=== PATIENT | female | born 1945 | race Caucasian/White ===

== ENCOUNTER 2018-07-22 09:17 | Emergency (ER) | payer MEDICARE, SELFPAY ==
[2018-07-22] VITALS (19 sets, daily range): BP systolic 160–194; BP diastolic 71–110; PULSE 75–89; RESP 14–31; TEMP 35.8; O2SAT 91–99
--- NOTE | 2018-07-22 09:34 | DI.CT_ITS ---
SYMPTOM/DIAGNOSIS: LT FLANK AND LUQ PAIN, LT FLANK ECCHYMOSIS, ATRAUMATIC CHEST, ABDOMEN AND PELVIC CT: Comparison is made with chest CT dated 01/23/12 and abdomen and pelvic CT dated . CHEST: There is a small hiatal hernia. There are minimal basilar densities in the right middle lobe and lingula likely representing scarring or atelectasis. They don't appear significantly changed from the previous exam. No pleural or pericardial effusion, mass or adenopathy is seen. ABDOMEN AND PELVIS: The liver, gallbladder, spleen and adrenals are unremarkable. There is a left renal cyst. There is dilatation of the left renal pelvis and proximal left ureter which appears unchanged from 2017. There are bilateral duplex collecting systems. The pancreas shows some fatty infiltration. There are prominent diverticula of the sigmoid colon. There is bowel wall thickening of the sigmoid. There may be mild surrounding inflammation. The uterus, bladder and ovaries are unremarkable. The appendix is not identified. There are no right lower quadrant inflammatory changes. The aorta and branch vessels show calcification but no evidence of an aneurysm. Scoliosis and mild lower thoracic compression fractures as well as Schmorl's nodes appear stable. There are facet degenerative changes causing spondylolisthesis at L 4-5 and L 5-S 1. IMPRESSION: Prominent diverticulosis with question of mild sigmoid diverticulitis. Stable appearance of mild dilatation of the right renal collecting system. No acute abnormality is seen in the chest.
--- NOTE | 2018-07-22 09:40 | ED.GENADUL_ITS ---
Discharge Plan Disposition Patient Disposition: HOME Condition: Improving Discharge Details Chief Complaint: Abd Prob Clinical Impression: Diverticulitis large intestine Primary Care Provider: CASSIE RENEE ED Provider: Anup Monaco Home Meds and New Rx's Prescriptions: New ciprofloxacin HCl 500 mg tablet 500 mg PO BID Qty: 20 RF: 0 metronidazole [Flagyl] 500 mg tablet 500 mg PO QID Qty: 40 RF: 0 Continue calcium carbonate 500 MG tablet,chewable 500 mg PO DAILY RF: 0 hydrochlorothiazide 25 mg tablet 25 mg PO DAILY RF: 0 multivitamin [Daily Multi-Vitamin] 1 EACH tablet 1 cap PO DAILY RF: 0 omega-3 fatty acids-fish oil [Fish Oil] 1 EACH capsule 1 cap PO DAILY RF: 0 ibuprofen 200 MG capsule 200 mg PO PRN PRNRF: 0 Discharge Instructions Instructions: Diverticulitis (ED), Diverticulitis Diet (ED) Additional Instructions: Home to rest today. Please begin a bland diet and slowly escalate to normal diet as tolerated. Take antibiotics as prescribed. May use Tylenol and/or ibuprofen as needed for pain. Return to the emergency department if you develop a fever, worsening pain, or any other acute concern. Your potassium level was low today and you should increase potassium containing foods in the diet as we discussed. Tylenol as needed for pain. May use the provided Zofran if needed for nausea. Return for worsening discomfort, fever, or any othr concerns. Yovany followup with regular doctor for recheck in 5-7 days time. Medical Decision Making 72-year-old female presents from home with the onset over 7 days time of left upper quadrant and left flank pain that began after lifting heavy pots previous weekend. Her exam is notable for questionable mass and there is ecchymosis present left flank. Patient placed on a rn cardiac cath, IV access established , given parenteral fluids, antiemetic, analgesic. She is referred for laboratory testing and CT scan of the chest abdomen and pelvis. Patient's laboratories notable for a sodium of 131, potassium is 2.7. CBC shows a white count 7, hematocrit 41, platelets 328, lactic acid is unremarkable. CT image revealed question subtle atelectatic changes of the lungs but are more impressive for findings of left-sided diverticulitis. Patient improved following fluids and medications. Her potassium was supplemented in the emergency department. Antibiotics initiated in the emergency department & will treat with a course of ciprofloxacin and metronidazole. Discussed with the patient the possibility of admission which she defers. She wishes to go to her sisters house this evening. She will follow-up for recheck in primary care office. Stable for outpatient management with her family. Lab Data Lab results reviewed: Yes I reviewed the patient's lab results. Laboratory Results - last 24 hr 07/22/18 07/22/18 07/22/18 09:40 09:40 09:40 WBC 7.35 RBC 4.77 Hgb 14.2 Hct 41.6 MCV 87.2 MCH 29.8 MCHC 34.1 RDW 12.9 Plt Count 328 MPV 8.7 Immature Gran % 0.3 Neutrophils % 87.4 Lymphocytes % 8.6 Monocytes % 3.3 Eosinophils % 0.1 Basophils % 0.3 Absolute Neutrophils 6.43 Absolute Lymphocytes 0.63 L Absolute Monocytes 0.24 Absolute Eosinophils 0.01 Absolute Basophils 0.02 Sodium 131 L Potassium 2.7 L* Chloride 91 L Carbon Dioxide 28.8 Anion Gap 11.2 H BUN 10 Creatinine 0.59 Estimated GFR/1.73 m2 >= 60.00 Glucose 146 H Lactate 1.1 Calcium 9.0 Magnesium 1.6 L Total Bilirubin 0.4 Conjugated Bilirubin 0.12 AST 15 ALT 25 Alkaline Phosphatase 94 Troponin I < 0.02 Total Protein 8.5 H Albumin 4.2 Lipase 59 L Urine Color Urine Clarity Urine pH Ur Specific [place] Urine Protein Urine Ketones Urine Blood Urine Nitrite Urine Bilirubin Urine Urobilinogen Ur Leukocyte Esterase Urine Glucose 07/22/18 10:00 WBC RBC Hgb Hct MCV MCH MCHC RDW Plt Count MPV Immature Gran % Neutrophils % Lymphocytes % Monocytes % Eosinophils % Basophils % Absolute Neutrophils Absolute Lymphocytes Absolute Monocytes Absolute Eosinophils Absolute Basophils Sodium Potassium Chloride Carbon Dioxide Anion Gap BUN Creatinine Estimated GFR/1.73 m2 Glucose Lactate Calcium Magnesium Total Bilirubin Conjugated Bilirubin AST ALT Alkaline Phosphatase Troponin I Total Protein Albumin Lipase Urine Color Yellow Urine Clarity Clear Urine pH 8.0 Ur Specific [place] 1.020 Urine Protein 100 H Urine Ketones 40 H Urine Blood Trace-intact H Urine Nitrite Negative Urine Bilirubin Negative Urine Urobilinogen 0.2 Ur Leukocyte Esterase Negative Urine Glucose Negative ECG Data Attestation: I personally reviewed and interpreted this ECG (s) as follows: Interpretation: Normal sinus rhythm, rate of 83, QRS is narrow, there is subtle J-point elevation in the precordial leads, no ST segment elevation HPI General Mode of arrival: ambulatory . Date/Time Provider Initiated Documentation: 07/22/18 09:24 . Limitations to Documentation: no limitations . Information obtained by: patient . History of Present Illness 72 year old F presents to the emergency department with the chief complaint of Abdominal pain, described as severe, Quality is described as constant, and is localized to the abdomen and left. Patient abdomen and flank. Patient started experiencing this day(s) and it has been constant. Rest improves symptom(s), Rest worsens symptoms . Patient notes nausea/vomiting. HPI Narrative: 72-year-old female presents from her home in [facility] with her sister. She states that she has had 7 days of constant left upper quadrant pain that radiates to her flank and is associated with a bulge. She states that it began last weekend while lifting heavy pots. She denies any acute onset of a ventral bulge. She has had associated nausea and vomiting today. Pain is worse with movement. She denies a fall or other injury. She does not take anticoagulants. She states that she has otherwise recently been well Related Data Home Medications Medication Instructions Recorded Confirmed multivitamin [Daily Multi-Vitamin] 1 cap PO DAILY 11/28/13 07/22/18 omega-3 fatty acids-fish oil [Fish 1 cap PO DAILY 11/28/13 09/27/17 Oil] ibuprofen 200 mg PO PRN PRN 12/03/13 07/22/18 calcium carbonate 500 mg PO DAILY tab.chew 04/07/16 07/22/18 hydrochlorothiazide 25 mg tablet 25 mg PO DAILY 06/05/18 07/22/18 ciprofloxacin HCl 500 mg PO BID #20 tab 07/22/18 metronidazole [Flagyl] 500 mg PO QID #40 tab 07/22/18 Previous Rx's Medication Instructions Recorded ciprofloxacin HCl 500 mg PO BID #20 tab 07/22/18 metronidazole [Flagyl] 500 mg PO QID #40 tab 07/22/18 Allergies Allergy/AdvReac Type Severity Reaction Status Date / Time Penicillins Allergy Mild RASH Unverified 07/22/18 09:31 Seasonal allergies Allergy Uncoded 07/22/18 09:31 General Stated Complaint: Abd Prob FRANNY: 3 Review of Systems Review of Systems 8 systems reviewed and otherwise negative PFSH Family History Mother No problems noted. Father No problems noted. Other Bladder cancer Medical History Hiatal hernia Skin tag Surgical History Appendectomy Laser Iridotomy OU Repair of inguinal hernia Tonsillectomy hiatal hernia repair Exam Narrative Exam Narrative: GEN: awake, alert, oriented 3. Pleasant, well groomed, interactive, uncomfortable. HEAD: Normocephalic, atraumatic ENT: Mucous membranes moist, oropharynx unremarkable, External ear exam unremarkable EYES: PERRL, EOMI NECK: Full ROM, no MILLY, no menigismus CHEST/RESP: Nontender, clear to auscultation bilateral, no wheeze/rhonchi/rales CARDIOVASCULAR: RRR, no murmur, rub lora. 2+ Rad pulse bilateral ABDOMEN: Soft, tender in left upper quadrant & left flank. There is a question of palpable mass. There is ecchymosis to the left flank and left CVA tenderness. +Bowel sounds EXT: Full ROM, no edema, no rash Neuro: Grossly normal neurologic exam, conversant, interactive. Psych: Speech fluent, thoughts congruent, affect normal Course Vital Signs Temperature 35.8 C L 07/22/18 09:24 Pulse 84 07/22/18 09:24 Respiratory Rate 16 07/22/18 09:24 Blood Pressure 194/110 H 07/22/18 09:24 Pulse Oximetry 99 07/22/18 09:24 Temperature 35.8 C L 07/22/18 09:24 Temperature Source Skin 07/22/18 09:24 Pulse 84 07/22/18 09:24 Respiratory Rate 16 07/22/18 09:24 Respiratory Effort Non-Labored 07/22/18 09:27 Blood Pressure 194/110 H 07/22/18 09:24 Pulse Oximetry 99 07/22/18 09:24 Pain Level 10 07/22/18 09:24
[2018-07-22] MEDS: Lactated Ringers 1,000 ML 125 ML IV (09:45)
[2018-07-22] MEDS: Ondansetron 4 MG/2 ML VIAL IVP ×3 (09:46→13:40)
[2018-07-22 09:47] LABS: Abs Immature Grans 0.02 k/cumm (0.0-0.09); Absolute Basophil Count 0.02 k/cumm (0.0-0.2); Absolute Eosinophil Count 0.01 k/cumm (0.0-0.7); Absolute Lymphocyte Count 0.63 k/cumm (1.2-3.4); Absolute Monocyte Count 0.24 k/cumm (0.11-0.7); Absolute Neutrophil Count 6.43 k/cumm (1.2-6.7); Basophils % 0.3; Eosinophils % 0.1; HCT 41.6 % (36.0-46.0); HGB 14.2 g/dL (12.0-15.5); Immature Grans % 0.3; Lymphocytes % 8.6; Mean Corp. HGB Concentration 34.1 g/dL (32.0-36.0); Mean Corpuscular Hemoglobin 29.8 pg (27.0-33.0); Mean Corpuscular Volume 87.2 fL (80-95); Mean Platelet Volume 8.7 fL (8.0-11.0); Monocytes % 3.3; Neutrophils % 87.4; Platelet Count 328 x1000/uL (130-400); RBC 4.77 m/cumm (4.00-5.20); RBC Distribution Width 12.9 % (11.7-14.6); White Blood Cell Count 7.35 k/cumm (4.4-10.8)
[2018-07-22 09:48] LABS: Lactate-non-spesis 1.1 mmol/L (0.6-1.4)
[2018-07-22] MEDS: MORPHine 10 MG/ML VIAL 2 MG IVP ×3 (09:54→13:45)
[2018-07-22 10:05] LABS: Bilirubin Negative (Negative); Blood Trace-intact (Negative); Clarity Clear; Glucose Negative (Negative); Ketones 40 mg/dL (Negative); Leukocyte Esterase Negative (Negative); Nitrite Negative (Negative); Urobilinogen 0.2 EU/dL (Up TO 0.2)
[2018-07-22 10:06] LABS: ALT 25 U/L (12-78); AST 15 U/L (15-37); Albumin 4.2 g/dL (3.4-5.0); Alkaline Phosphatase 94 U/L (46-116); Anion Gap 11.2 mmol/L (3-11); BUN 10 mg/dL (7-18); Bilirubin, Direct 0.12 mg/dL (0.00-0.20); Bilirubin, Total 0.4 mg/dL (0.2-1.0); CO2 28.8 mmol/L (21.0-32.0); CREATININE 0.59 mg/dL (0.55-1.02); Chloride 91 mmol/L (98-107); Glucose 146 mg/dL (70-100); Lipase 59 U/L (73-393); Magnesium 1.6 mg/dL (1.8-2.4); Sodium 131 mmol/L (136-145); Total Protein 8.5 g/dL (6.4-8.2)
[2018-07-22 10:07] LABS: Potassium 2.7 mmol/L (3.5-5.1); Troponin I < 0.02 ng/mL (0.00-0.06)
[2018-07-22] MEDS: Omnipaque 350 MG/ML 100 ML BTL IV (10:21)
[2018-07-22 10:35] LABS: Epithelial Cells Negative HPF (Negative); WBC 0-2 HPF (0-5)
[2018-07-22 10:36] LABS: Bacteria Rare HPF (Negative); C & S Indicated? No; Casts Negative LPF (Negative); Crystals Negative HPF (Negative); Mucus Negative (Negative); Other Cells Rare Renal (Negative)
[2018-07-22] MEDS: POTASSIUM CHLORIDE/0.9% NACL 1,000 ML 100 MEQ IV (10:50)
[2018-07-22] MEDS: Normal Saline 1,000 ML 100 ML IV (10:55)
--- NOTE | 2018-07-22 11:15 | DI.VRAD_ITS ---
EXAM: CT Chest With Intravenous Contrast EXAM DATE/TIME: 07/22/2018 9:38 AM CLINICAL HISTORY: 72 years old, female; Signs and symptoms; Other: L flank, luq pain. L flank ecc TECHNIQUE: Axial computed tomography images of the chest with intravenous contrast. All CT scans at this facility use at least one of these dose optimization techniques: automated exposure control; mA and/or kV adjustment per patient size (includes targeted exams where dose is matched to clinical indication); or iterative reconstruction. Coronal and sagittal reformatted images were created and reviewed. CONTRAST: 100 ml of omnipaque 350 administered intravenously. COMPARISON: CT ABD PELVIS WITH CONTRAST 04/03/2017 11:04 AM FINDINGS: Thyroid: The thyroid is heterogeneous Lungs: Minimal opacity in the right middle lobe and lingula and left lower lobe may represent minimal atelectasis or pneumonia. Pleural space: Normal. No pneumothorax. No pleural effusion. Heart: Coronary artery calcifications may indicate coronary artery disease. There is calcification of the aortic valve annulus. Mediastinum: Small hiatal hernia Aorta: Normal. No aortic aneurysm. Lymph nodes: Unremarkable. No enlarged lymph nodes. Bones/joints: Compression fractures of unknown age in the thoracic spine Soft tissues: Unremarkable. IMPRESSION: Minimal opacity in the right middle lobe and lingula and left lower lobe may represent minimal atelectasis or pneumonia. EXAM: CT Abdomen and Pelvis With Intravenous Contrast EXAM DATE/TIME: 07/22/2018 9:38 AM CLINICAL HISTORY: 72 years old, female; Signs and symptoms; Other: L flank, luq pain. L flank ecc TECHNIQUE: Axial computed tomography images of the abdomen and pelvis with intravenous contrast. All CT scans at this facility use at least one of these dose optimization techniques: automated exposure control; mA and/or kV adjustment per patient size (includes targeted exams where dose is matched to clinical indication); or iterative reconstruction. Coronal and sagittal reformatted images were created and reviewed. CONTRAST: 100 ml of omnipaque 350 administered intravenously. COMPARISON: CT ABD PELVIS WITH CONTRAST 04/03/2017 11:04 AM FINDINGS: Lower thorax: See the report for CT chest ABDOMEN: Liver: 3 mm low attenuation area in the liver is too small to characterize Gallbladder and bile ducts: Normal. No calcified stones. No ductal dilation. Pancreas: Fatty infiltration of the pancreas. Spleen: Normal. No splenomegaly. Adrenals: Normal. No mass. Kidneys and ureters: Mild hydronephrosis in the right kidney. Mild proximal right hydroureter. 2.5 cm left renal cyst Stomach and bowel: Diverticulosis and Bowel wall thickening along the rectosigmoid colon. Mild pericolonic inflammatory changes. No evidence of perforation or abscess formation or bleeding. Findings consistent with acute diverticulitis. Bowel wall thickening in the distal transverse colon, descending colon, and proximal rectosigmoid consistent with colitis. Differential includes decompressed bowel. Appendix: See Stomach And Bowel Finding. PELVIS: Bladder: Unremarkable as visualized. Reproductive: Unremarkable as visualized. ABDOMEN and PELVIS: Intraperitoneal space: Normal. No free air. No significant fluid collection. Bones/joints: Anteriolisthesis of L4 with respect L5 and L5 with respect to S1. Soft tissues: Unremarkable. Vasculature: Normal. No abdominal aortic aneurysm. Lymph nodes: Normal. No enlarged lymph nodes. IMPRESSION: 1. Diverticulosis and Bowel wall thickening along the rectosigmoid colon. Mild pericolonic inflammatory changes. No evidence of perforation or abscess formation or bleeding. Findings consistent with acute diverticulitis. 2. Mild hydronephrosis in the right kidney. Mild proximal right hydroureter. Unknown etiology. Recommend urology consult Dictated and Authenticated by: Estefany Leblanc MD. Ordering:SHELTON CISNEROS MD
[2018-07-22] MEDS: Ciprofloxacin 500 MG TAB PO (11:50)
[2018-07-22] MEDS: Ketorolac 30 MG/ML VIAL 15 MG IVP (11:55)
[2018-07-22] MEDS: MetroNIDAZOLE 500 MG/100 ML BAG 100 MG IVPB (12:00)
[2018-07-22] MEDS: metroNIDAZOLE 500 MG TAB PO (16:00)
[2018-07-22] MEDS: Ciprofloxacin 250 MG TAB 500 MG PO (16:00)
[2018-07-22] MEDS: Ondansetron O.D.T. 4 MG TABEF 12 MG PO (16:00)
--- NOTE | 2018-07-23 09:29 | PDOC.ERCMPRO ---
Care Management Progress Note 07/23-Dr. Monaco requested assistance with a PCP (Dr. Page) for end of this week for diverticulitis. Called Dr. Page's office and number no longer in service. Called [facility] who states that Dr. Page has retired and that her patients found new PCP's. (Dr. Page had a private practice). Called Agata back and had to leave voice mail. Asked her to call back to let me know if I could assist her with a new PCP in the [place] area (she may already have one) and reminded her she needed a f/u at the end of this week. Also requested that Agata call back to let us know who her new provider was.
== END 2018-07-22 19:03 | disposition home or self-care (01) ==
PROVIDERS: Emergency Provider Emergency Medicine; PCP Family Medicine
DX: K57.32 Diverticulitis of large intestine without perforation or abscess without bleeding (principal); E87.6 Hypokalemia; I10 Essential (primary) hypertension
CPT/HCPCS: 36415; 74177; 80053; 80076; 83690; 93005; 96361; 96365; 96366; 96368; 96375; 96376; 99285; 71260; 81003; 81015; 83605; 83735; 84484; 85025; 93010; J1885; J2270; J2405; J3490

== ENCOUNTER 2018-07-23 12:17 | Emergency (ER) | payer MEDICARE, SELFPAY ==
[2018-07-23] VITALS (9 sets, daily range): BP systolic 168–210; BP diastolic 70–103; PULSE 73–97; RESP 16–25; TEMP 36.8–37.1; O2SAT 95–99
[2018-07-23 13:00] LABS: Abs Immature Grans 0.02 k/cumm (0.0-0.09); Absolute Basophil Count 0.01 k/cumm (0.0-0.2); Absolute Eosinophil Count 0.01 k/cumm (0.0-0.7); Absolute Lymphocyte Count 0.79 k/cumm (1.2-3.4); Absolute Monocyte Count 0.46 k/cumm (0.11-0.7); Absolute Neutrophil Count 7.86 k/cumm (1.2-6.7); Basophils % 0.1; Eosinophils % 0.1; HCT 41.3 % (36.0-46.0); HGB 14.2 g/dL (12.0-15.5); Immature Grans % 0.2; Lymphocytes % 8.6; Mean Corp. HGB Concentration 34.4 g/dL (32.0-36.0); Mean Corpuscular Hemoglobin 29.8 pg (27.0-33.0); Mean Corpuscular Volume 86.6 fL (80-95); Mean Platelet Volume 8.8 fL (8.0-11.0); Platelet Count 371 x1000/uL (130-400); RBC 4.77 m/cumm (4.00-5.20); RBC Distribution Width 12.9 % (11.7-14.6); White Blood Cell Count 9.15 k/cumm (4.4-10.8)
[2018-07-23] MEDS: Normal Saline 500 ML IV (13:10)
--- NOTE | 2018-07-23 13:14 | NUR.NOTE ---
Assumed care of patient at this time. Previous documentation of assumption of care documented by another nurse under this RN's name. No report concerning this patient given. Will notify IT and nursing management of this issue. Nursing Note:
[2018-07-23 13:15] LABS: ALT 24 U/L (12-78); AST 17 U/L (15-37); Albumin 3.8 g/dL (3.4-5.0); Alkaline Phosphatase 88 U/L (46-116); Anion Gap 11.5 mmol/L (3-11); BUN 16 mg/dL (7-18); Bilirubin, Total 0.4 mg/dL (0.2-1.0); CO2 27.5 mmol/L (21.0-32.0); CREATININE 0.64 mg/dL (0.55-1.02); Chloride 90 mmol/L (98-107); Glucose 129 mg/dL (70-100); Lipase 61 U/L (73-393); Potassium 3.1 mmol/L (3.5-5.1); Sodium 129 mmol/L (136-145)
[2018-07-23] MEDS: MORPHine 10 MG/ML VIAL 4 MG IVP (13:20)
--- NOTE | 2018-07-23 14:43 | DI.RAD_ITS ---
SYMPTOMS/DIAGNOSIS: ABD PAIN AP CHEST AND FLAT AND DECUBITUS VIEWS OF THE ABDOMEN: Comparison is made with chest, abdomen and pelvic CT of the previous day. The heart is mildly enlarged, unchanged. The aorta is tortuous. Scoliosis is noted. There are underlying fibrotic changes. There is a minimal density at the left costophrenic angle. No free air is seen. The bowel gas pattern is unremarkable. No dilated bowel loops or air fluid levels are seen. There is mild chronic deformity of the right inferior pubic ramus which appears unchanged when compared with previous CT exams. IMPRESSION: No acute abnormality.
[2018-07-23] MEDS: MetroNIDAZOLE 500 MG/100 ML BAG 100 MG IVPB (15:42)
[2018-07-23] MEDS: Normal Saline 1,000 ML 125 ML IV (16:47)
[2018-07-23] MEDS: Metoprolol 5 MG/5 ML VIAL IVP (16:57)
--- NOTE | 2018-07-23 17:50 | ED.GENADUL_ITS ---
Discharge Plan Disposition Patient Disposition: OTHER Condition: Stable Discharge Details Chief Complaint: Abd Prob Clinical Impression: Diverticulitis, Hypertension Primary Care Provider: CASSIE RENEE ED Provider: Juan Watson Home Meds and New Rx's Prescriptions: No Action calcium carbonate 500 MG tablet,chewable 500 mg PO DAILY RF: 0 hydrochlorothiazide 25 mg tablet 25 mg PO DAILY RF: 0 multivitamin [Daily Multi-Vitamin] 1 EACH tablet 1 cap PO DAILY RF: 0 omega-3 fatty acids-fish oil [Fish Oil] 1 EACH capsule 1 cap PO DAILY RF: 0 ibuprofen 200 MG capsule 200 mg PO PRN PRNRF: 0 ciprofloxacin HCl 500 mg tablet 500 mg PO BID Qty: 20 RF: 0 metronidazole [Flagyl] 500 mg tablet 500 mg PO QID Qty: 40 RF: 0 Discharge Data Discharge Date/Time-TO BE ENTERED AT DEPARTURE: 07/23/18 18:19 Medical Decision Making Patient presenting to the emergency department for chief complaint of abdominal pain. Patient states that she was seen yesterday and had imaging performed and diagnosed with diverticulitis. Patient states that she was able to keep down her Cipro and Flagyl antibiotics that she was prescribed but otherwise is not been able to eat or drink anything in 3 days, has had severe abdominal pain, has not been able to take any of her other medications including her blood pressure medication. Patient states greater than 10 pain. Patient reports that this is not specifically changed since yesterday just not getting any better with outpatient therapy and due to not being able to tolerate any intake she was concerned. Physical exam shows acutely tender abdomen with more tenderness noted on palpation of the left side of the abdomen but due to patient 's severe discomfort difficult to fully examine abdomen. Otherwise physical exam is unremarkable. Plan to check labs, establish IV access, give fluids, and give pain medication. After review of labs that show no leukocytosis but mild hyponatremia and hypokalemia otherwise are nondiagnostic plain film imaging of the abdomen was ordered. Plain film imaging appears appropriate but patient continuing to have pain so patient given additional 4 mg of morphine. And started on normal saline 125/hr Patient noted to continually be hypertensive so patient was given 5 mg metoprolol for blood pressure control. Patient plain film imaging reviewed and shows no acute findings.I do feel needs medical admission. Patient was offered admission last night but denied admission at that time but given that she is not getting any better I do feel that she now needs admission and she is agreeable to this. We have no bed availability so patient's preference was initially to go to [facility] but beds were not available. [facility] and only [facility] had availability. Spoke with Dr. Aguilar about admission of the patient which he accepted the patient in transfer. Patient was agreeable for transfer. Pending transfer patient had not had any further doses of her Flagyl except for her morning dose of Cipro and Flagyl so patient was given IV Flagyl but given that she was able to tolerate her p.o. Cipro no other IV antibiotics were given. Medical Records Medical records reviewed: Yes I reviewed the patient's medical records. Lab Data Lab results reviewed: Yes I reviewed the patient's lab results. HPI General Mode of arrival: ambulatory . Date/Time Provider Initiated Documentation: 07/23/18 12:43 . Limitations to Documentation: no limitations . Information obtained by: patient, RN notes reviewed and old records reviewed . History of Present Illness 72 year old F presents to the emergency department with the chief complaint of Abdominal pain, described as severe, with intensity rated at >10. and is localized to the abdomen. Patient started experiencing this day(s) (8) and it has been constant. No exacerbating factors reported . Patient did receive the following treatments prior to arrival, none Related Data Home Medications Medication Instructions Recorded Confirmed multivitamin [Daily Multi-Vitamin] 1 cap PO DAILY 11/28/13 07/27/18 omega-3 fatty acids-fish oil [Fish 1 cap PO DAILY 11/28/13 07/27/18 Oil] ibuprofen 200 mg PO PRN PRN 12/03/13 07/27/18 calcium carbonate 500 mg PO DAILY tab.chew 04/07/16 07/27/18 hydrochlorothiazide 25 mg tablet 25 mg PO DAILY 06/05/18 07/27/18 ciprofloxacin HCl 500 mg PO BID #20 tab 07/22/18 07/27/18 metronidazole [Flagyl] 500 mg PO QID #40 tab 07/22/18 07/27/18 Previous Rx's Medication Instructions Recorded ciprofloxacin HCl 500 mg PO BID #20 tab 07/22/18 metronidazole [Flagyl] 500 mg PO QID #40 tab 07/22/18 Allergies Allergy/AdvReac Type Severity Reaction Status Date / Time Penicillins Allergy Mild RASH Unverified 07/27/18 08:50 Seasonal allergies Allergy Uncoded 07/27/18 08:50 General Stated Complaint: Abd Prob FRANNY: 3 Review of Systems Constitutional Denies chills, Reports fatigue, Denies fever(s) and Reports malaise Cardiovascular Denies chest pain and Denies dyspnea Respiratory Denies cough and Denies dyspnea Gastrointestinal Reports as per HPI, Reports abdominal pain, Reports nausea and Reports vomiting Genitourinary Denies dysuria, Denies urinary hesitancy and Denies urinary urgency Endocrine Reports fatigue PFSH Family History Mother No problems noted. Father No problems noted. Other Bladder cancer Medical History Hiatal hernia Skin tag Social History Smoking/Tobacco Use Status: Former Tobacco Use Surgical History Appendectomy Laser Iridotomy OU Repair of inguinal hernia Tonsillectomy hiatal hernia repair Exam Const General: cooperative, acute distress moderate; not respiratory and ill appearing acutely Nutritional Appearance: average body habitus Orientation: alert, awake and oriented x3 Resp Effort & Inspection: normal respiratory effort and able to speak in complete sentences Auscultation: clear to auscultation bilaterally Cardio Rate: regular rate Rhythm: regular rhythm Heart Sounds: S1 normal and S2 normal Bruits: no abdominal aortic bruits GI Palpation: soft and tender (Diffuse with more noted on the left side of abdomen) Auscultation: hypoactive bowel sounds Neuro General: alert, awake, oriented x3, tone normal and moves all extremities Course Vital Signs Temperature 37.1 C 07/23/18 12:25 Pulse 80 07/23/18 12:25 Respiratory Rate 20 07/23/18 12:25 Blood Pressure 208/94 H 07/23/18 12:25 Pulse Oximetry 96 07/23/18 12:25 Temperature 37.1 C 07/23/18 12:25 Temperature Source Temporal Artery Scan 07/23/18 12:25 Pulse 97 H 07/23/18 16:57 Pulse 89 07/23/18 14:16 Respiratory Rate 25 H 07/23/18 14:16 Respiratory Effort 07/23/18 13:16 Blood Pressure 183/94 H 07/23/18 16:57 Blood Pressure Mean 131 07/23/18 14:16 Pulse Oximetry 95 07/23/18 16:41 Oxygen Delivery Method Room Air 07/23/18 12:25 Oxygen Flow Rate 0 07/23/18 12:25 Pain Level 10 07/23/18 12:25 Lab/Test Results Lab/Test Results: Laboratory Tests Range/Units 07/23/18 07/23/18 12:40 12:40 WBC (4.4-10.8) k/cumm 9.15 RBC (4.00-5.20) m/cumm 4.77 Hgb (12.0-15.5) g/dL 14.2 Hct (36.0-46.0) % 41.3 MCV (80-95) fL 86.6 MCH (27.0-33.0) pg 29.8 MCHC (32.0-36.0) g/dL 34.4 RDW (11.7-14.6) % 12.9 Plt Count (130-400) x1000/uL 371 MPV (8.0-11.0) fL 8.8 Immature Gran % 0.2 Neutrophils % 86.0 Lymphocytes % 8.6 Monocytes % 5.0 Eosinophils % 0.1 Basophils % 0.1 Absolute Neutrophils (1.2-6.7) k/cumm 7.86 H Absolute Lymphocytes (1.2-3.4) k/cumm 0.79 L Absolute Monocytes (0.11-0.7) k/cumm 0.46 Absolute Eosinophils (0.0-0.7) k/cumm 0.01 Absolute Basophils (0.0-0.2) k/cumm 0.01 Sodium (136-145) mmol/L 129 L Potassium (3.5-5.1) mmol/L 3.1 L Chloride (98-107) mmol/L 90 L Carbon Dioxide (21.0-32.0) mmol/L 27.5 Anion Gap (3-11) mmol/L 11.5 H BUN (7-18) mg/dL 16 D Creatinine (0.55-1.02) mg/dL 0.64 Estimated GFR/1.73 m2 (mL/min/1.73m2) >= 60.00 Glucose (70-100) mg/dL 129 H Calcium (8.5-10.1) mg/dL 9.0 Total Bilirubin (0.2-1.0) mg/dL 0.4 AST (15-37) U/L 17 ALT (12-78) U/L 24 Alkaline Phosphatase (46-116) U/L 88 Total Protein (6.4-8.2) g/dL 8.0 Albumin (3.4-5.0) g/dL 3.8 Lipase (73-393) U/L 61 L
== END 2018-07-23 18:19 | disposition other institution (70) ==
PROVIDERS: Emergency Provider Nurse Practitioner Family
DX: K57.32 Diverticulitis of large intestine without perforation or abscess without bleeding (principal); I10 Essential (primary) hypertension; E87.1 Hypo-osmolality and hyponatremia; E87.6 Hypokalemia
CPT/HCPCS: 36415; 80053; 83690; 96361; 96365; 96375; 96376; 99285; 74022; 85025; 99284; J2270

== ENCOUNTER 2018-07-27 08:34 | Observation (INO) | payer MEDICARE, SELFPAY ==
[2018-07-27] VITALS (39 sets, daily range): BP systolic 141–214; BP diastolic 61–102; PULSE 67–95; RESP 16–32; TEMP 36.6–37.1; O2SAT 90–99
--- NOTE | 2018-07-27 09:03 | DI.CT_ITS ---
SYMPTOM/DIAGNOSIS: WORSENING PAIN, H/O DIVERTICULITIS ABDOMEN AND PELVIC CT: CT examination of the abdomen and pelvis was performed with a bolus infusion of 100 cc's of Omnipaque 350. Images obtained through the lung bases are unremarkable. Liver and spleen appear normal. Gallbladder and bile ducts are unremarkable. Pancreas is unremarkable in appearance. Note is made of made of apparent previous surgery at the esophagus hiatus with a recurrent or persistent hiatal hernia. Adrenals are unremarkable in appearance bilaterally. 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 No evidence of hydronephrosis or ureterolithiasis. On the left, there are some tiny non obstructing renal calculi. Left renal cyst also noted measuring roughly 2.5 cm. in diameter. No left hydronephrosis or hydroureter. Abdominal aorta is of normal diameter and no major vasculature abnormality is seen. No abdominal wall hernia is seen. No abdominal or pelvic adenopathy. There is marked colonic diverticulosis without evidence of diverticulitis. LOAN ADMINISTRATOR structures appear intact for a postmenopausal patient. Small bilateral low attenuation, rounded ovarian lesions noted, unchanged from previous examination , consistent with cysts, the largest measuring about 17 mm. in diameter on the right. Note is made of small quantities of gas in the subcutaneous fat in a right paramedian anterior abdominal location, question recent injections into subcutaneous fat. CONCLUSION: Colonic diverticulosis without evidence of diverticulitis. Non obstructing left renal calculus. No evidence of acute intra-abdominal process.
--- NOTE | 2018-07-27 09:07 | W.ED.GENAD ---
Discharge Plan Disposition Patient Disposition: [facility] INPATIENT Condition: Poor Discharge Details Chief Complaint: Abd Prob Clinical Impression: Diverticulitis, Left nephrolithiasis, Shingles Reason For Visit: DIVERTICULITIS,HERPES ZOSTER, NONOSTRUCTING- Admit Date/Time: 07/27/18 11:11 Admit Provider: Barb Ware Attending Provider: Barb Ware Primary Care Provider: CASSIE RENEE ED Provider: Agata Rios Medical Decision Making Patient 72-year-old female with history of hypertension, depression and neuropathy presenting today with increased abdominal pain. Patient was discharged yesterday after being hospitalized for diverticulitis. She was initially diagnosed with diverticulitis 6 days ago begun on Cipro and Flagyl. She was subsequently seen in the emergency department 4 days ago. For increased discomfort at that point, she was having difficulty maintaining any p.o. intake and was admitted. Needed to be transferred out of [address] [place] [address] facility secondary to bed availability at that time. Patient was discharged yesterday from [facility]. Reports that at that point, her pain is much improved but overnight her pain has greatly increased. Initial imaging, completed on 07/22/2018, showed left-sided diverticulitis, no complications were noted at that point. Patient appears very uncomfortable at this point. Reports that she has not been vomiting but has been very nauseated making it difficult for her to take her medications. Does not feel that her nausea vomiting is associated with the antibiotic as she has not taken this since yesterday. States that the left-sided abdominal pain is greatly improved increased. While at [facility] patient was also diagnosed with shingles and was placed on valacyclovir, patient has not been able to begin this medication as of yet. On exam, patient appears very uncomfortable. She is preferring to lie in a position curled up on her left side. She is clutching at her abdomen and appears to be very nauseated. Abdomen is exquisitely tender with gentle palpation. Patient will be given antiemetic, pain medication, hydration. Will repeat laboratory evaluation as well as imaging. Will obtain recent discharge summary. Discussed this plan with the patient who is in agreement Laboratory evaluation without significant abnormality. Urine is still pending Contacted by radiologist who advised the diverticulitis appears improved. He does note nonobstructing renal calculi on the left. No hydronephrosis. Also notes gas and subcutaneous fat, he was questioning any recent injections. Patient did recently have Lovenox injections per Discussing findings with the patient. Reevaluated. She is feeling much improved after the IV morphine and Phenergan. However, she is quite concerned that she has not been able to tolerate any p.o. intake, did appear dry on exam, is unable to control her pain at home. She reports that she is used oral narcotics historically in the past and has not been able to tolerate these well. I feel at this point, given the patient's level of discomfort and inability to tolerate p.o. she is appropriate for inpatient treatment. Patient did take her Flagyl this morning. We will give her her Cipro as well as her antiviral Consulted with Dr. Ware who agrees to admission. However, she is asked to hold off on medications at this point. She will evaluate the patient further and likely transition patient to complete IV medications until patient is able to tolerate oral better. She is also asked that I place holding orders. HPI General Mode of arrival: wheelchair. Date/Time Provider Initiated Documentation: 07/27/18 08:51. Limitations to Documentation: no limitations. Information obtained by: patient and family. History of Present Illness 72 year old F presents to the emergency department with the chief complaint of abdominal pain, described as severe and similar to prior episodes, with intensity rated at >10. Quality is described as stabbing, and is localized to the abdomen. Patient reports no radiation; denies radiation to back and extremity. Patient started experiencing this week(s) (1) and it has been intermittent (increased today since discharge yesterday). No relieving factors improve symptom(s), No exacerbating factors reported . Patient notes fever/chills (states she had fever during recent hospitalization), loss of appetite, malaise, nausea/vomiting and rash (is concurrently being treated for shingles on left side of abdomen); denies chest pain, cough, diaphoresis, headaches, shortness of breath and weakness. Patient did receive the following treatments prior to arrival, none Related Data Home Medications Medication Instructions Recorded Confirmed multivitamin [Daily Multi-Vitamin] 1 cap PO DAILY 11/28/13 07/27/18 omega-3 fatty acids-fish oil [Fish 1 cap PO DAILY 11/28/13 07/27/18 Oil] ibuprofen 200 mg PO PRN PRN 12/03/13 07/27/18 calcium carbonate 500 mg PO DAILY tab.chew 04/07/16 07/27/18 hydrochlorothiazide 25 mg tablet 25 mg PO DAILY 06/05/18 07/27/18 ciprofloxacin HCl 500 mg PO BID #20 tab 07/22/18 07/27/18 metronidazole [Flagyl] 500 mg PO QID #40 tab 07/22/18 07/27/18 Previous Rx's Medication Instructions Recorded ciprofloxacin HCl 500 mg PO BID #20 tab 07/22/18 metronidazole [Flagyl] 500 mg PO QID #40 tab 07/22/18 Allergies Allergy/AdvReac Type Severity Reaction Status Date / Time Penicillins Allergy Mild RASH Unverified 07/27/18 08:50 Seasonal allergies Allergy Uncoded 07/27/18 08:50 General Stated Complaint: Abd Prob FRANNY: 2 Review of Systems Constitutional Reports as per HPI, Denies chills, Reports fatigue, Reports fever(s) (reports she was febrile a few days ago while hospitalized, none within the last 24 hours), Denies headache(s) and Reports poor appetite ENT Denies headache(s) Cardiovascular Denies chest pain, Denies palpitations, Denies dyspnea and Denies dyspnea on exertion Respiratory Denies cough, Denies pain on inspiration, Denies dyspnea and Denies dyspnea on exertion Gastrointestinal Reports as per HPI, Reports abdominal pain, Reports constipation (reports she has enema 2 days ago which helped but continues to feel constipated, no BM since enema), Denies cramping, Denies heartburn, Reports nausea and Reports vomiting Genitourinary Denies system reviewed and no additional complaints, except as docu (denies change in urinary habits) Musculoskeletal Denies abnormal gait, Denies back pain, Denies myalgias and Denies atrophy Integumentary/Breasts Reports as per HPI and Reports rash (patient recently diagnosed with shingles under left breast) Neurologic Denies abnormal gait and Denies headache(s) Endocrine Reports fatigue and Denies palpitations Exam Const General: cooperative, healthy appearing, uncomfortable (patient is in position, appears very uncomfortable, clutching her abdomen), well developed and well groomed Nutritional Appearance: average body habitus and well nourished Orientation: alert and awake [facility] Head: normal to inspection and normocephalic Mouth: mucous membranes dry (patient appears dry) Resp Effort & Inspection: normal respiratory effort, able to speak in complete sentences and no respiratory distress Auscultation: clear to auscultation bilaterally, no rales, no rhonchi and no wheezes Cardio Rate: regular rate Rhythm: regular rhythm Heart Sounds: S1 normal and S2 normal GI Inspection: abnormal to inspection (patient has diffuse abdominal discomfort, worse over the LLQ), no abdominal wall ecchymosis, no edema and non-distended Palpation: soft, hepatosplenomegaly present, not firm, no guarding, no hernias, not rigid and nontender Auscultation: hypoactive bowel sounds Back/Spine/Pelvis Back: no CVA tenderness Skin Rashes: rashes noted (patient has a rash under the left breast and around the back consistent with shingles, no opening in the wounds noted) Trauma: no lacerations or abrasions Neuro General: alert and awake Cognition: normal cognition Speech: speech normal Psych Appearance: grossly normal and well kempt Mental Status: mental status grossly normal Speech and Movement: speech and movement normal Course Vital Signs Temperature 36.6 C 07/27/18 08:41 Pulse 95 H 07/27/18 08:41 Respiratory Rate 32 H 07/27/18 08:41 Blood Pressure 189/102 H 07/27/18 08:41 Pulse Oximetry 99 07/27/18 08:41 Temperature 36.6 C 07/27/18 08:41 Temperature Source Temporal Artery Scan 07/27/18 08:41 Pulse 95 H 07/27/18 08:41 Respiratory Rate 32 H 07/27/18 08:41 Respiratory Effort 07/27/18 08:45 Blood Pressure 189/102 H 07/27/18 08:41 Blood Pressure Position Supine 07/27/18 08:41 Pulse Oximetry 99 07/27/18 08:41 Oxygen Delivery Method Room Air 07/27/18 08:41 Oxygen Flow Rate 0 07/27/18 08:41 Pain Level 10 07/27/18 08:46
[2018-07-27] MEDS: Normal Saline 1,000 ML 1000 ML IV (09:10)
[2018-07-27] MEDS: MORPHine 10 MG/ML VIAL 4 MG IVP (09:15)
[2018-07-27 09:20] LABS: Abs Immature Grans 0.04 k/cumm (0.0-0.09); Absolute Basophil Count 0.02 k/cumm (0.0-0.2); Absolute Eosinophil Count 0.05 k/cumm (0.0-0.7); Absolute Lymphocyte Count 0.99 k/cumm (1.2-3.4); Absolute Monocyte Count 0.95 k/cumm (0.11-0.7); Basophils % 0.2; Eosinophils % 0.5; HCT 42.7 % (36.0-46.0); HGB 14.7 g/dL (12.0-15.5); Immature Grans % 0.4; Lymphocytes % 10.2; Mean Corp. HGB Concentration 34.4 g/dL (32.0-36.0); Mean Corpuscular Hemoglobin 30.1 pg (27.0-33.0); Mean Corpuscular Volume 87.3 fL (80-95); Mean Platelet Volume 8.8 fL (8.0-11.0); Monocytes % 9.7; Platelet Count 375 x1000/uL (130-400); RBC 4.89 m/cumm (4.00-5.20); White Blood Cell Count 9.75 k/cumm (4.4-10.8)
--- NOTE | 2018-07-27 09:32 | ED.GENADUL_ITS ---
Discharge Plan Disposition Patient Disposition: [facility] INPATIENT Condition: Poor Discharge Details Chief Complaint: Abd Prob Clinical Impression: Diverticulitis, Left nephrolithiasis, Shingles Reason For Visit: DIVERTICULITIS,HERPES ZOSTER, NONOSTRUCTING- Admit Date/Time: 07/27/18 11:11 Admit Provider: Barb Ware Attending Provider: Barb Ware Primary Care Provider: CASSIE RENEE ED Provider: Agata Rios Medical Decision Making Patient 72-year-old female with history of hypertension, depression and neuropathy presenting today with increased abdominal pain. Patient was discharged yesterday after being hospitalized for diverticulitis. She was initially diagnosed with diverticulitis 6 days ago begun on Cipro and Flagyl. She was subsequently seen in the emergency department 4 days ago. For increased discomfort at that point, she was having difficulty maintaining any p.o. intake and was admitted. Needed to be transferred out of [address] [place] [address] facility secondary to bed availability at that time. Patient was discharged yesterday from [facility]. Reports that at that point, her pain is much improved but overnight her pain has greatly increased. Initial imaging, completed on 07/22/2018, showed left-sided diverticulitis, no complications were noted at that point. Patient appears very uncomfortable at this point. Reports that she has not been vomiting but has been very nauseated making it difficult for her to take her medications. Does not feel that her nausea vomiting is associated with the antibiotic as she has not taken this since yesterday. States that the left-sided abdominal pain is greatly improved increased. While at [facility] patient was also diagnosed with shingles and was placed on valacyclovir, patient has not been able to begin this medication as of yet. On exam, patient appears very uncomfortable. She is preferring to lie in a position curled up on her left side. She is clutching at her abdomen and appears to be very nauseated. Abdomen is exquisitely tender with gentle palpation. Patient will be given antiemetic, pain medication, hydration. Will repeat laboratory evaluation as well as imaging. Will obtain recent discharge summary. Discussed this plan with the patient who is in agreement Laboratory evaluation without significant abnormality. Urine is still pending Contacted by radiologist who advised the diverticulitis appears improved. He does note nonobstructing renal calculi on the left. No hydronephrosis. Also notes gas and subcutaneous fat, he was questioning any recent injections. Patient did recently have Lovenox injections per Discussing findings with the patient. Reevaluated. She is feeling much improved after the IV morphine and Phenergan. However, she is quite concerned that she has not been able to tolerate any p.o. intake, did appear dry on exam, is unable to control her pain at home. She reports that she is used oral narcotics historically in the past and has not been able to tolerate these well. I feel at this point, given the patient's level of discomfort and inability to tolerate p.o. she is appropriate for inpatient treatment. Patient did take her Flagyl this morning. We will give her her Cipro as well as her antiviral Consulted with Dr. Ware who agrees to admission. However, she is asked to hold off on medications at this point. She will evaluate the patient further and likely transition patient to complete IV medications until patient is able to tolerate oral better. She is also asked that I place holding orders. HPI General Mode of arrival: wheelchair . Date/Time Provider Initiated Documentation: 07/27/18 08:51 . Limitations to Documentation: no limitations . Information obtained by: patient and family . History of Present Illness 72 year old F presents to the emergency department with the chief complaint of abdominal pain, described as severe and similar to prior episodes, with intensity rated at >10. Quality is described as stabbing, and is localized to the abdomen. Patient reports no radiation; denies radiation to back and extremity. Patient started experiencing this week(s) (1) and it has been intermittent (increased today since discharge yesterday). No relieving factors improve symptom(s), No exacerbating factors reported . Patient notes fever/chills (states she had fever during recent hospitalization), loss of appetite, malaise, nausea/vomiting and rash (is concurrently being treated for shingles on left side of abdomen); denies chest pain, cough, diaphoresis, headaches, shortness of breath and weakness. Patient did receive the following treatments prior to arrival, none Related Data Home Medications Medication Instructions Recorded Confirmed multivitamin [Daily Multi-Vitamin] 1 cap PO DAILY 11/28/13 07/27/18 omega-3 fatty acids-fish oil [Fish 1 cap PO DAILY 11/28/13 07/27/18 Oil] ibuprofen 200 mg PO PRN PRN 12/03/13 07/27/18 calcium carbonate 500 mg PO DAILY tab.chew 04/07/16 07/27/18 hydrochlorothiazide 25 mg tablet 25 mg PO DAILY 06/05/18 07/27/18 ciprofloxacin HCl 500 mg PO BID #20 tab 07/22/18 07/27/18 metronidazole [Flagyl] 500 mg PO QID #40 tab 07/22/18 07/27/18 Previous Rx's Medication Instructions Recorded ciprofloxacin HCl 500 mg PO BID #20 tab 07/22/18 metronidazole [Flagyl] 500 mg PO QID #40 tab 07/22/18 Allergies Allergy/AdvReac Type Severity Reaction Status Date / Time Penicillins Allergy Mild RASH Unverified 07/27/18 08:50 Seasonal allergies Allergy Uncoded 07/27/18 08:50 General Stated Complaint: Abd Prob FRANNY: 2 Review of Systems Constitutional Reports as per HPI, Denies chills, Reports fatigue, Reports fever(s) (reports she was febrile a few days ago while hospitalized, none within the last 24 hours ), Denies headache(s) and Reports poor appetite ENT Denies headache(s) Cardiovascular Denies chest pain, Denies palpitations, Denies dyspnea and Denies dyspnea on exertion Respiratory Denies cough, Denies pain on inspiration, Denies dyspnea and Denies dyspnea on exertion Gastrointestinal Reports as per HPI, Reports abdominal pain, Reports constipation (reports she has enema 2 days ago which helped but continues to feel constipated, no BM since enema), Denies cramping, Denies heartburn, Reports nausea and Reports vomiting Genitourinary Denies system reviewed and no additional complaints, except as docu (denies change in urinary habits) Musculoskeletal Denies abnormal gait, Denies back pain, Denies myalgias and Denies atrophy Integumentary/Breasts Reports as per HPI and Reports rash (patient recently diagnosed with shingles under left breast) Neurologic Denies abnormal gait and Denies headache(s) Endocrine Reports fatigue and Denies palpitations Exam Const General: cooperative, healthy appearing, uncomfortable (patient is in position, appears very uncomfortable, clutching her abdomen), well developed and well groomed Nutritional Appearance: average body habitus and well nourished Orientation: alert and awake [facility] Head: normal to inspection and normocephalic Mouth: mucous membranes dry (patient appears dry) Resp Effort & Inspection: normal respiratory effort, able to speak in complete sentences and no respiratory distress Auscultation: clear to auscultation bilaterally, no rales, no rhonchi and no wheezes Cardio Rate: regular rate Rhythm: regular rhythm Heart Sounds: S1 normal and S2 normal GI Inspection: abnormal to inspection (patient has diffuse abdominal discomfort, worse over the LLQ), no abdominal wall ecchymosis, no edema and non-distended Palpation: soft, hepatosplenomegaly present, not firm, no guarding, no hernias, not rigid and nontender Auscultation: hypoactive bowel sounds Back/Spine/Pelvis Back: no CVA tenderness Skin Rashes: rashes noted (patient has a rash under the left breast and around the back consistent with shingles, no opening in the wounds noted) Trauma: no lacerations or abrasions Neuro General: alert and awake Cognition: normal cognition Speech: speech normal Psych Appearance: grossly normal and well kempt Mental Status: mental status grossly normal Speech and Movement: speech and movement normal Course Vital Signs Temperature 36.6 C 07/27/18 08:41 Pulse 95 H 07/27/18 08:41 Respiratory Rate 32 H 07/27/18 08:41 Blood Pressure 189/102 H 07/27/18 08:41 Pulse Oximetry 99 07/27/18 08:41 Temperature 36.6 C 07/27/18 08:41 Temperature Source Temporal Artery Scan 07/27/18 08:41 Pulse 95 H 07/27/18 08:41 Respiratory Rate 32 H 07/27/18 08:41 Respiratory Effort 07/27/18 08:45 Blood Pressure 189/102 H 07/27/18 08:41 Blood Pressure Position Supine 07/27/18 08:41 Pulse Oximetry 99 07/27/18 08:41 Oxygen Delivery Method Room Air 07/27/18 08:41 Oxygen Flow Rate 0 07/27/18 08:41 Pain Level 10 07/27/18 08:46
[2018-07-27 09:37] LABS: ALT 43 U/L (12-78); AST 44 U/L (15-37); Albumin 3.6 g/dL (3.4-5.0); Alkaline Phosphatase 75 U/L (46-116); Anion Gap 10.3 mmol/L (3-11); BUN 15 mg/dL (7-18); Bilirubin, Direct 0.13 mg/dL (0.00-0.20); Bilirubin, Total 0.5 mg/dL (0.2-1.0); CO2 29.7 mmol/L (21.0-32.0); CREATININE 0.87 mg/dL (0.55-1.02); Calcium 9.3 mg/dL (8.5-10.1); Chloride 95 mmol/L (98-107); Glucose 119 mg/dL (70-100); Lipase 72 U/L (73-393); Magnesium 1.8 mg/dL (1.8-2.4); Potassium 3.2 mmol/L (3.5-5.1); Sodium 135 mmol/L (136-145); Total Protein 7.3 g/dL (6.4-8.2)
[2018-07-27 09:38] LABS: Troponin I < 0.02 ng/mL (0.00-0.06)
[2018-07-27] MEDS: Omnipaque 350 MG/ML 100 ML BTL IJ (10:21)
[2018-07-27] MEDS: Normal Saline Flush 10 ML SYR IVP ×2 (11:25→18:50)
[2018-07-27 13:09] LABS: Bilirubin Negative (Negative); Blood Trace-intact (Negative); Clarity Clear; Glucose Negative (Negative); Ketones 40 mg/dL (Negative); Leukocyte Esterase Negative (Negative); Nitrite Negative (Negative); Urobilinogen 0.2 EU/dL (Up TO 0.2)
[2018-07-27 13:16] LABS: Bacteria Negative HPF (Negative); C & S Indicated? No; Casts Negative LPF (Negative); Crystals Negative HPF (Negative); Epithelial Cells Rare HPF (Negative); Mucus Negative (Negative); RBC 0-2 (0-2); WBC Negative HPF (0-5)
--- NOTE | 2018-07-27 16:28 | W.PM.HP.N ---
Date of service: 07/27/18 Time of Service: 16:29 Assessment and Plan (1) Diverticulitis: Current visit: Yes Status: Chronic Improving by CT. However, she has been unable to take PO. IV fluids have been ordered containing potassium as she was low. Plan to have antiemetics and analgesics available. Maintain clear liquid diet, to be advanced as tolerated. Continue IV cipro and flagyl. (2) Herpes zoster: Current visit: Yes Status: Acute IV acyclovir until she can take orals, at that point she can be transitioned to valtrex. (3) DVT prophylaxis: Current visit: Yes Status: Acute Continue subcutaneous lovenox. (4) Discharge planning issues: Current visit: Yes Status: Acute She is a full code. This case was discussed with Dr. Ware who is in agreement. (5) Hypertension: Current visit: Yes Status: Acute Continue home antihypertensive medication. History of Present Illness Chief Complaint: Abdominal pain, nausea Narrative: Agata is a 72 year old female with a history of hypertension and chronic tinnitus who was seen in the Emergency department 5 days ago and diagnosed at that time with diverticulitis based on abdominal CT. She refused admission at that time. She was started on Cipro and flagyl at that time. The following day (07/23/18), she presented back to the emergency department with worsening abdominal pain. She was also noted to have hypertension at that time. There were no beds available here at [facility] so she was transferred to [facility] in [place], [place] for admission. She was discharged from [facility] yesterday. She reports feeling better at that time with IV morphine. She presented back to the ED today with increased pain and nausea. She did not check her temperature at home, but she did have chills. It is unclear if she was taking her antibiotics correctly at home. She has not been able to tolerate oral intake. When she was at [facility], she was also diagnosed with Herpes zoster on her left side under her left breast, for which she was started on Valacyclovir. She has discomfort to her left chest and left back related to the shingles. She denies any chest pressure, shortness of breath, cough or wheeze. She feels nauseated, her abdominal pain has improved since she received IV morphine. She denies any bowel or bladder dysfunction. She denies any other pain. Repeat imaging in the ED today revealed Colonic diverticulosis without evidence of diverticulitis, nonobstructing left renal calculus, no evidence of acute intra-abdominal process. Lab work was notable for low sodium at 135, low potassium at 3.2, chloride was low at 95, no leukocytosis. She is admitted to the med/surg floor for further observation and management. Review of Systems Review of Systems All systems reviewed & are unremarkable except as noted in HPI and below Meds Home Medications Medication Instructions Recorded Confirmed Type multivitamin [Daily Multi-Vitamin] 1 cap PO DAILY 11/28/13 07/27/18 History omega-3 fatty acids-fish oil [Fish 1 cap PO DAILY 11/28/13 07/27/18 History Oil] ibuprofen 200 mg PO PRN PRN 12/03/13 07/27/18 History calcium carbonate 500 mg PO DAILY tab.chew 04/07/16 07/27/18 History hydrochlorothiazide 25 mg tablet 25 mg PO DAILY 06/05/18 07/27/18 History ciprofloxacin HCl 500 mg PO BID #20 tab 07/22/18 07/27/18 Rx metronidazole [Flagyl] 500 mg PO QID #40 tab 07/22/18 07/27/18 Rx Allergies Allergy/AdvReac Type Severity Reaction Status Date / Time Penicillins Allergy Mild RASH Unverified 07/27/18 08:50 Seasonal allergies Allergy Uncoded 07/27/18 08:50 Exam Narrative Exam Narrative: General: Lying on left side with eyes closed, awakens to verbal stimuli, answers questions appropriately, alert and oriented x3. HEENT: pupils small, equal, reactive to light, EOMI, mucous membranes slightly dry. telangiectasia to nose and cheeks. Neck: supple, no lymphadenopathy, no JVD. Respiratory: Respirations even and unlabored. Lung sounds clear to auscultation throughout. Cardiac: Heart has regular rate and rhythm with normal S1 and S2. No murmur, click, gallop or rub. Abdomen: Soft, mild tenderness on palpation, palpation induces nausea, no masses appreciated. Normoactive bowel sounds throughout. Skin: 2 areas of crusted blisters consistent with zoster below left breast along dermatome, red, no active drainage. Posteriorly appears to possibly be beginning to break on left as well at same level. Extremities: no clubbing, cyanosis, or edema. Peripheral pulses palpable. Results Labs : 07/27/18 09:05 07/27/18 09:05 Laboratory Results - last 24 hr 07/27/18 07/27/18 07/27/18 09:05 09:05 12:52 WBC 9.75 RBC 4.89 Hgb 14.7 Hct 42.7 MCV 87.3 MCH 30.1 MCHC 34.4 RDW 13.0 Plt Count 375 MPV 8.8 Immature Gran % 0.4 Neutrophils % 79.0 Lymphocytes % 10.2 Monocytes % 9.7 Eosinophils % 0.5 Basophils % 0.2 Absolute Neutrophils 7.70 H Absolute Lymphocytes 0.99 L Absolute Monocytes 0.95 H Absolute Eosinophils 0.05 Absolute Basophils 0.02 Sodium 135 L Potassium 3.2 L Chloride 95 L Carbon Dioxide 29.7 Anion Gap 10.3 BUN 15 Creatinine 0.87 Estimated GFR/1.73 m2 >= 60.00 Glucose 119 H Calcium 9.3 Magnesium 1.8 Total Bilirubin 0.5 Conjugated Bilirubin 0.13 AST 44 H ALT 43 Alkaline Phosphatase 75 Troponin I < 0.02 Total Protein 7.3 Albumin 3.6 Lipase 72 L Urine Color Yellow Urine Clarity Clear Urine pH 7.0 Ur Specific [place] 1.010 Urine Protein Negative Urine Ketones 40 H Urine Blood Trace-intact H Urine Nitrite Negative Urine Bilirubin Negative Urine Urobilinogen 0.2 Ur Leukocyte Esterase Negative Urine RBC 0-2 Urine WBC Negative Ur Epithelial Cells Rare Urine Crystals Negative Urine Bacteria Negative Urine Casts Negative Urine Mucus Negative Ur Culture Indicated? No Urine Glucose Negative Last Vital Signs Temp 36.9 C 07/27/18 15:33 Pulse 67 07/27/18 15:33 Resp 20 07/27/18 15:33 BP 166/84 H 07/27/18 15:33 Pulse Ox 93 L 07/27/18 15:33
[2018-07-27] MEDS: POTASSIUM CHLORIDE/0.9% NACL 1,000 ML 100 MEQ IV (18:50)
[2018-07-27] MEDS: Enoxaparin 40 MG/0.4 ML SYR SC (18:52)
[2018-07-27] MEDS: MetroNIDAZOLE 500 MG/100 ML BAG 100 MG IVPB (18:52)
[2018-07-27] MEDS: CIPROFLOXACIN 400 MG/200 ML BAG IVPB (20:05)
[2018-07-27] MEDS: Docusate Sodium 100 MG CAP PO (21:57)
[2018-07-28] VITALS (8 sets, daily range): BP systolic 142–193; BP diastolic 81–121; PULSE 77–104; RESP 18–20; TEMP 36.6–37.3; O2SAT 94–97
[2018-07-28] MEDS: MetroNIDAZOLE 500 MG/100 ML BAG 100 MG IVPB ×4 (02:29→21:25)
[2018-07-28] MEDS: CIPROFLOXACIN 400 MG/200 ML BAG IVPB ×2 (06:53→19:06)
[2018-07-28 07:44] LABS: Abs Immature Grans 0.02 k/cumm (0.0-0.09); Absolute Basophil Count 0.02 k/cumm (0.0-0.2); Absolute Lymphocyte Count 1.54 k/cumm (1.2-3.4); Absolute Monocyte Count 0.81 k/cumm (0.11-0.7); Absolute Neutrophil Count 5.34 k/cumm (1.2-6.7); Basophils % 0.3; Eosinophils % 1.3; HCT 39.9 % (36.0-46.0); HGB 13.4 g/dL (12.0-15.5); Immature Grans % 0.3; Lymphocytes % 19.7; Mean Corp. HGB Concentration 33.6 g/dL (32.0-36.0); Mean Corpuscular Hemoglobin 29.9 pg (27.0-33.0); Mean Corpuscular Volume 89.1 fL (80-95); Mean Platelet Volume 8.9 fL (8.0-11.0); Monocytes % 10.3; Neutrophils % 68.1; Platelet Count 346 x1000/uL (130-400); RBC 4.48 m/cumm (4.00-5.20); RBC Distribution Width 13.4 % (11.7-14.6); White Blood Cell Count 7.83 k/cumm (4.4-10.8)
[2018-07-28 07:48] LABS: Anion Gap 7.6 mmol/L (3-11); BUN 10 mg/dL (7-18); CO2 28.4 mmol/L (21.0-32.0); CREATININE 0.65 mg/dL (0.55-1.02); Calcium 8.2 mg/dL (8.5-10.1); Chloride 100 mmol/L (98-107); Glucose 109 mg/dL (70-100); Magnesium 1.7 mg/dL (1.8-2.4); Sodium 136 mmol/L (136-145)
[2018-07-28] MEDS: Magnesium Oxide 400 MG TAB PO ×2 (08:50→15:06)
[2018-07-28] MEDS: POTASSIUM CHLORIDE 10 MEQ/100 ML BAG 100 MEQ IVPB ×2 (10:07→11:54)
[2018-07-28] MEDS: Docusate Sodium 100 MG CAP PO ×2 (11:16→21:45)
--- NOTE | 2018-07-28 12:24 | PDOC.CMIN ---
- If Service Date Differs Date of service: 07/28/18 Time of Service: 12:24 Care Management Initial Assess REASON FOR HOSPITALIZATION:: Abdominal pain, Nausea PAST MEDICAL HISTORY/PAST SURGICAL HISTORY:: Diverticulitis, Bilateral tinnitus, Sensorineural hearing loss (Bilateral), Impacted cerumen of (L) ear, Hypertension, H/O alcohol abuse, Dyspnea, Depression, Neuropathy PREVIOUS FUNCTIONAL STATUS/SOCIAL/FAMILY SUPPORTS:: Agata resides alone in [place], she states that things have been going well at home. Agata states that she has sister jaron (Hailee) whom is supportive. Agata is independent at baseline, and manages ADL's CURRENT FUNCTIONAL STATUS:: Currently Agata is lying in bed when this software writer visits. She states that she is feeling discouraged as she was recently at [facility], and she wants to get better. ADVANCE DIRECTIVES:: None on file Has patient been provided with information about the portal?: Yes Did the patient sign up for the portal?: No CODE STATUS:: Full Code INSURANCE COVERAGE / FINANCIAL ISSUES:: Medicare, Financial ASST 100 CURRENT HOME/COMMUNITY SERVICES/EQUIPMENT:: Currently Agata has no services or medical equipment at home. PRIMARY CARE PHYSICIAN:: Naa Page POTENTIAL DISCHARGE NEEDS:: F/U appointment with PCP PATIENT/FAMILY EDUCATION NEEDS:: Review DC instructions, any limitations, and ongoing DC planning discussion, Discuss 'Ask Me Three' ANTICIPATED BARRIERS TO DISCHARGE:: None identified at this time. TRANSPORTATION:: Via private vehicle with sister Hailee PLAN:: Agata will return home with no anticipated services. She will F/U with PCP and plan of care as prescribed. Family to transport when ready.
--- NOTE | 2018-07-28 12:44 | INITIAL_ITS ---
- If Service Date Differs Date of service: 07/28/18 Time of Service: 12:24 Care Management Initial Assess REASON FOR HOSPITALIZATION:: Abdominal pain, Nausea PAST MEDICAL HISTORY/PAST SURGICAL HISTORY:: Diverticulitis, Bilateral tinnitus , Sensorineural hearing loss (Bilateral), Impacted cerumen of (L) ear, Hypertension, H/O alcohol abuse, Dyspnea, Depression, Neuropathy PREVIOUS FUNCTIONAL STATUS/SOCIAL/FAMILY SUPPORTS:: Agata resides alone in [place], she states that things have been going well at home. Agata states that she has sister jaron (Hailee) whom is supportive. Agata is independent at baseline, and manages ADL's CURRENT FUNCTIONAL STATUS:: Currently Agata is lying in bed when this production underwriter visits. She states that she is feeling discouraged as she was recently at [facility], and she wants to get better. ADVANCE DIRECTIVES:: None on file Has patient been provided with information about the portal?: Yes Did the patient sign up for the portal?: No CODE STATUS:: Full Code INSURANCE COVERAGE / FINANCIAL ISSUES:: Medicare, Financial ASST 100 CURRENT HOME/COMMUNITY SERVICES/EQUIPMENT:: Currently Agata has no services or medical equipment at home. PRIMARY CARE PHYSICIAN:: Naa Page POTENTIAL DISCHARGE NEEDS:: F/U appointment with PCP PATIENT/FAMILY EDUCATION NEEDS:: Review DC instructions, any limitations, and ongoing DC planning discussion, Discuss 'Ask Me Three' ANTICIPATED BARRIERS TO DISCHARGE:: None identified at this time. TRANSPORTATION:: Via private vehicle with sister Hailee PLAN:: Agata will return home with no anticipated services. She will F/U with PCP and plan of care as prescribed. Family to transport when ready.
--- NOTE | 2018-07-28 14:36 | PHARADMIT ---
Admission Pharmacy Clinical Review DIVERTICULITIS, HERPES ZOSTER Code Status Full Code Current Weight 68 kg Renally Cleared and Narrow Therapeutic Index Meds CrCl~47ml/min QTc Value / Action Taken BP Control, Fever BP 142/88 Afebrile Pain 7/10 Electrolytes reviewed K+ 3.0, Mag 1.7 (both replaced IV and orally) DVT Prophylaxis Lovenox 40mg Opiate Usage / Scheduled Bowel Regimen Ordered Plt/SCr for Heparin / Enoxaparin Plt 346 SCr 0.65 INR for Warfarin H/H stable, WBC/Bands H/H 13.4/39.9 WBC 7.83 Antibiotic appropriateness Acyclovir 650mg IV q8h....weight dosed Cipro/Flagyl for Diverticulitis Cultures and Sensitivities none Surgical ABX d/c within 24 hr DM control / Insulin Dosing Heart Failure (Check EF%) (BRIAN's, B-Block, Diuretics) IV to PO Switch ?Acyclovir, Flagyl, Cipro when appropriate Home Meds Reviewed Home Meds Not Ordered HCTZ, Ibuprofen, MVI, Fish oil Comments c/o constipation, fleets added with success
--- NOTE | 2018-07-28 14:51 | W.PM.PROGNOT ---
Assessment and Plan (1) Diverticulitis: Current visit: Yes Status: Chronic Improved by CT, and exam and history currently unimpressive. Continue Cipro and Flagyl, currently appears to be day #6 total if patient has been compliant with medications. Plan on total 7-10 day course of antibiotic therapy. Of note, patient reports chronic component to her nausea, with onset at time of her surgery for repair of large hiatal hernia. Continue anti-emetics, advance diet as tolerated. (2) Herpes zoster: Current visit: Yes Status: Acute IV acyclovir, appears to be day #2 here, unsure if she took this medicine following her discharge from outside institution. Continue pain control with topical Lidoderm, and transition to oral Oxycodone if able. Consider transition to valtrex tomorrow. (3) Hypertension: Current visit: Yes Status: Acute Currently holding HCTZ in setting of significant hypokalemia. Monitor blood pressure. (4) DVT prophylaxis: Current visit: Yes Status: Acute Continue subcutaneous lovenox. Subjective Interval history since last seen: 72 year old woman with a prior medical history of hypertension and ETOH abuse in remission, admitted from [facility] Emergency Department on 07/27/2018 with a diagnosis of Acute Diverticulitis and acute outbreak of shingles. Mrs. Miles was seen in the emergency room 5 days prior to her admission and diagnosed at that time with diverticulitis based on abdominal imaging. She refused admission at that time. She was started on oral Cipro and flagyl and discharged. However by the following day (07/23/18) she presented back to the emergency department with worsening abdominal pain. She was also noted to have hypertension at that time. There were no beds available here at [facility] and the patient was subsequently transferred to [facility] for admission. She was treated, then discharged from [facility] on the day prior to her admission here. She reported initially feeling better, but presented back to the ED with increased pain and nausea. While at the outside hospital the patient was also diagnosed with Herpes zoster on her left side, for which she was started on Valacyclovir. Repeat imaging in the ED at time of admission revealed Colonic diverticulosis without evidence of diverticulitis, nonobstructing left renal calculus, no evidence of acute intra-abdominal process. Today the patient continues to complain of nausea, but relates that this has been a chronic finding for her. Her pain is currently resolved in her abdomen, but persistent at the site of the zoster rash. No other events reported. She remains afebrile. Exam Narrative Exam Narrative: General: Patient appears comfortable, AAOX3, NAD Skin: 2 small areas of crusted blisters consistent in appearance with Zoster along left flank and left lateral abdomen noted. Rash appears to be dermatomal. Neck: Supple CV: Regular, nontachycardic, S1S2, No rubs, murmurs, or gallops. Pulmonary: Clear to auscultation bilaterally, no crackles, wheezing, or rhonchi Abdomen: + Bowel Sounds, soft, nontender to palpation today, nondistended Vascular: No lower extremity edema Neurologic: CN II-XII grossly intact. No focal deficits. Objective Objective Clinical Data: Abnormal lab results 07/28/18 07/28/18 Range/Units 06:58 06:58 Absolute Monocytes 0.81 H (0.11-0.7) k/cumm Potassium 3.0 L (3.5-5.1) mmol/L Glucose 109 H (70-100) mg/dL Calcium 8.2 L (8.5-10.1) mg/dL Magnesium 1.7 L (1.8-2.4) mg/dL Vital Signs Temperature 36.6 C 07/28/18 08:10 Temperature Source Tympanic 07/28/18 08:10 Pulse 96 H 07/28/18 08:10 Pulse Rhythm Regular 07/28/18 13:44 Pulse 89 07/27/18 12:31 Respiratory Rate 20 07/28/18 08:10 Respiratory Effort 07/28/18 13:44 Respiratory Depth Normal 07/28/18 13:44 Respiratory Pattern Normal 07/28/18 13:44 Blood Pressure 142/88 H 07/28/18 08:10 Blood Pressure Mean 109 07/27/18 12:30 Blood Pressure Position Supine 07/27/18 08:41 Pulse Oximetry 97 07/28/18 08:10 Oxygen Delivery Method Room Air 07/28/18 08:10 Oxygen Flow Rate 0 07/28/18 08:10 Pain Level 7 07/28/18 05:07 Comment 07/28/18 04:30 Intake & Output 07/27/18 07/28/18 07/28/18 23:59 11:59 23:59 Intake Total 1040 / 1040 600.5 / 600.5 Output Total 100 / 100 250 / 250 Balance 940 / 940 350.5 / 350.5 Weight 66.7 kg 68 kg Intake: IV 560 / 560 600.5 / 600.5 Oral 480 / 480 Output: Urine 100 / 100 250 / 250 Other: Urine Color Yellow Yellow Urine Appearance Clear Clear Clear Comment UA sent Stool Size Moderate Stool Characteristics Formed [place] Laboratory Results WBC 7.83 k/cumm (4.4-10.8) 07/28/18 06:58 RBC 4.48 m/cumm (4.00-5.20) 07/28/18 06:58 Hgb 13.4 g/dL (12.0-15.5) 07/28/18 06:58 Hct 39.9 % (36.0-46.0) 07/28/18 06:58 MCV 89.1 fL (80-95) 07/28/18 06:58 MCH 29.9 pg (27.0-33.0) 07/28/18 06:58 MCHC 33.6 g/dL (32.0-36.0) 07/28/18 06:58 RDW 13.4 % (11.7-14.6) 07/28/18 06:58 Plt Count 346 x1000/uL (130-400) 07/28/18 06:58 MPV 8.9 fL (8.0-11.0) 07/28/18 06:58 Immature Gran % 0.3 07/28/18 06:58 Neutrophils % 68.1 07/28/18 06:58 Lymphocytes % 19.7 07/28/18 06:58 Monocytes % 10.3 07/28/18 06:58 Eosinophils % 1.3 07/28/18 06:58 Basophils % 0.3 07/28/18 06:58 Absolute Neutrophils 5.34 k/cumm (1.2-6.7) 07/28/18 06:58 Absolute Lymphocytes 1.54 k/cumm (1.2-3.4) 07/28/18 06:58 Absolute Monocytes 0.81 k/cumm (0.11-0.7) H 07/28/18 06:58 Absolute Eosinophils 0.10 k/cumm (0.0-0.7) 07/28/18 06:58 Absolute Basophils 0.02 k/cumm (0.0-0.2) 07/28/18 06:58 Sodium 136 mmol/L (136-145) 07/28/18 06:58 Potassium 3.0 mmol/L (3.5-5.1) L 07/28/18 06:58 Chloride 100 mmol/L (98-107) 07/28/18 06:58 Carbon Dioxide 28.4 mmol/L (21.0-32.0) 07/28/18 06:58 Anion Gap 7.6 mmol/L (3-11) 07/28/18 06:58 BUN 10 mg/dL (7-18) 07/28/18 06:58 Creatinine 0.65 mg/dL (0.55-1.02) 07/28/18 06:58 Estimated GFR/1.73 m2 >= 60.00 (mL/min/1.73m2) 07/28/18 06:58 Glucose 109 mg/dL (70-100) H 07/28/18 06:58 Calcium 8.2 mg/dL (8.5-10.1) L 07/28/18 06:58 Magnesium 1.7 mg/dL (1.8-2.4) L 07/28/18 06:58 Total Bilirubin 0.5 mg/dL (0.2-1.0) 07/27/18 09:05 Conjugated Bilirubin 0.13 mg/dL (0.00-0.20) 07/27/18 09:05 AST 44 U/L (15-37) H 07/27/18 09:05 ALT 43 U/L (12-78) 07/27/18 09:05 Alkaline Phosphatase 75 U/L (46-116) 07/27/18 09:05 Troponin I < 0.02 ng/mL (0.00-0.06) 07/27/18 09:05 Total Protein 7.3 g/dL (6.4-8.2) 07/27/18 09:05 Albumin 3.6 g/dL (3.4-5.0) 07/27/18 09:05 Lipase 72 U/L (73-393) L 07/27/18 09:05 Urine Color Yellow (Yellow) 07/27/18 12:52 Urine Clarity Clear 07/27/18 12:52 Urine pH 7.0 (5-8) 07/27/18 12:52 Ur Specific [place] 1.010 (1.005-1.025) 07/27/18 12:52 Urine Protein Negative mg/dL (Negative) 07/27/18 12:52 Urine Ketones 40 mg/dL (Negative) H 07/27/18 12:52 Urine Blood Trace-intact (Negative) H 07/27/18 12:52 Urine Nitrite Negative (Negative) 07/27/18 12:52 Urine Bilirubin Negative (Negative) 07/27/18 12:52 Urine Urobilinogen 0.2 EU/dL (Up TO 0.2) 07/27/18 12:52 Ur Leukocyte Esterase Negative (Negative) 07/27/18 12:52 Urine RBC 0-2 (0-2) 07/27/18 12:52 Urine WBC Negative HPF (0-5) 07/27/18 12:52 Ur Epithelial Cells Rare HPF (Negative) 07/27/18 12:52 Urine Crystals Negative HPF (Negative) 07/27/18 12:52 Urine Bacteria Negative HPF (Negative) 07/27/18 12:52 Urine Casts Negative LPF (Negative) 07/27/18 12:52 Urine Mucus Negative (Negative) 07/27/18 12:52 Ur Culture Indicated? No 07/27/18 12:52 Urine Glucose Negative mg/dL (Negative) 07/27/18 12:52
--- NOTE | 2018-07-28 15:04 | PGE_ITS ---
Assessment and Plan (1) Diverticulitis: Current visit: Yes Status: Chronic Improved by CT, and exam and history currently unimpressive. Continue Cipro and Flagyl, currently appears to be day #6 total if patient has been compliant with medications. Plan on total 7-10 day course of antibiotic therapy. Of note, patient reports chronic component to her nausea, with onset at time of her surgery for repair of large hiatal hernia. Continue anti-emetics , advance diet as tolerated. (2) Herpes zoster: Current visit: Yes Status: Acute IV acyclovir, appears to be day #2 here, unsure if she took this medicine following her discharge from outside institution. Continue pain control with topical Lidoderm, and transition to oral Oxycodone if able. Consider transition to valtrex tomorrow. (3) Hypertension: Current visit: Yes Status: Acute Currently holding HCTZ in setting of significant hypokalemia. Monitor blood pressure. (4) DVT prophylaxis: Current visit: Yes Status: Acute Continue subcutaneous lovenox. Subjective Interval history since last seen: 72 year old woman with a prior medical history of hypertension and ETOH abuse in remission, admitted from [facility] Emergency Department on 07/27/2018 with a diagnosis of Acute Diverticulitis and acute outbreak of shingles. Mrs. Miles was seen in the emergency room 5 days prior to her admission and diagnosed at that time with diverticulitis based on abdominal imaging. She refused admission at that time. She was started on oral Cipro and flagyl and discharged. However by the following day (07/23/18) she presented back to the emergency department with worsening abdominal pain. She was also noted to have hypertension at that time. There were no beds available here at [facility] and the patient was subsequently transferred to [facility] for admission. She was treated, then discharged from [facility] on the day prior to her admission here. She reported initially feeling better, but presented back to the ED with increased pain and nausea. While at the outside hospital the patient was also diagnosed with Herpes zoster on her left side, for which she was started on Valacyclovir. Repeat imaging in the ED at time of admission revealed Colonic diverticulosis without evidence of diverticulitis, nonobstructing left renal calculus, no evidence of acute intra-abdominal process. Today the patient continues to complain of nausea, but relates that this has been a chronic finding for her. Her pain is currently resolved in her abdomen, but persistent at the site of the zoster rash. No other events reported. She remains afebrile. Exam Narrative Exam Narrative: General: Patient appears comfortable, AAOX3, NAD Skin: 2 small areas of crusted blisters consistent in appearance with Zoster along left flank and left lateral abdomen noted. Rash appears to be dermatomal. Neck: Supple CV: Regular, nontachycardic, S1S2, No rubs, murmurs, or gallops. Pulmonary: Clear to auscultation bilaterally, no crackles, wheezing, or rhonchi Abdomen: + Bowel Sounds, soft, nontender to palpation today, nondistended Vascular: No lower extremity edema Neurologic: CN II-XII grossly intact. No focal deficits. Objective Objective Clinical Data: Abnormal lab results 07/28/18 07/28/18 Range/Units 06:58 06:58 Absolute Monocytes 0.81 H (0.11-0.7) k/cumm Potassium 3.0 L (3.5-5.1) mmol/L Glucose 109 H (70-100) mg/dL Calcium 8.2 L (8.5-10.1) mg/dL Magnesium 1.7 L (1.8-2.4) mg/dL Vital Signs Temperature 36.6 C 07/28/18 08:10 Temperature Source Tympanic 07/28/18 08:10 Pulse 96 H 07/28/18 08:10 Pulse Rhythm Regular 07/28/18 13:44 Pulse 89 07/27/18 12:31 Respiratory Rate 20 07/28/18 08:10 Respiratory Effort 07/28/18 13:44 Respiratory Depth Normal 07/28/18 13:44 Respiratory Pattern Normal 07/28/18 13:44 Blood Pressure 142/88 H 07/28/18 08:10 Blood Pressure Mean 109 07/27/18 12:30 Blood Pressure Position Supine 07/27/18 08:41 Pulse Oximetry 97 07/28/18 08:10 Oxygen Delivery Method Room Air 07/28/18 08:10 Oxygen Flow Rate 0 07/28/18 08:10 Pain Level 7 07/28/18 05:07 Comment 07/28/18 04:30 Intake & Output 07/27/18 07/28/18 07/28/18 23:59 11:59 23:59 Intake Total 1040 / 1040 600.5 / 600.5 Output Total 100 / 100 250 / 250 Balance 940 / 940 350.5 / 350.5 Weight 66.7 kg 68 kg Intake: IV 560 / 560 600.5 / 600.5 Oral 480 / 480 Output: Urine 100 / 100 250 / 250 Other: Urine Color Yellow Yellow Urine Appearance Clear Clear Clear Comment UA sent Stool Size Moderate Stool Characteristics Formed [place] Laboratory Results WBC 7.83 k/cumm (4.4-10.8) 07/28/18 06:58 RBC 4.48 m/cumm (4.00-5.20) 07/28/18 06:58 Hgb 13.4 g/dL (12.0-15.5) 07/28/18 06:58 Hct 39.9 % (36.0-46.0) 07/28/18 06:58 MCV 89.1 fL (80-95) 07/28/18 06:58 MCH 29.9 pg (27.0-33.0) 07/28/18 06:58 MCHC 33.6 g/dL (32.0-36.0) 07/28/18 06:58 RDW 13.4 % (11.7-14.6) 07/28/18 06:58 Plt Count 346 x1000/uL (130-400) 07/28/18 06:58 MPV 8.9 fL (8.0-11.0) 07/28/18 06:58 Immature Gran % 0.3 07/28/18 06:58 Neutrophils % 68.1 07/28/18 06:58 Lymphocytes % 19.7 07/28/18 06:58 Monocytes % 10.3 07/28/18 06:58 Eosinophils % 1.3 07/28/18 06:58 Basophils % 0.3 07/28/18 06:58 Absolute Neutrophils 5.34 k/cumm (1.2-6.7) 07/28/18 06:58 Absolute Lymphocytes 1.54 k/cumm (1.2-3.4) 07/28/18 06:58 Absolute Monocytes 0.81 k/cumm (0.11-0.7) H 07/28/18 06:58 Absolute Eosinophils 0.10 k/cumm (0.0-0.7) 07/28/18 06:58 Absolute Basophils 0.02 k/cumm (0.0-0.2) 07/28/18 06:58 Sodium 136 mmol/L (136-145) 07/28/18 06:58 Potassium 3.0 mmol/L (3.5-5.1) L 07/28/18 06:58 Chloride 100 mmol/L (98-107) 07/28/18 06:58 Carbon Dioxide 28.4 mmol/L (21.0-32.0) 07/28/18 06:58 Anion Gap 7.6 mmol/L (3-11) 07/28/18 06:58 BUN 10 mg/dL (7-18) 07/28/18 06:58 Creatinine 0.65 mg/dL (0.55-1.02) 07/28/18 06:58 Estimated GFR/1.73 m2 >= 60.00 (mL/min/1.73m2) 07/28/18 06:58 Glucose 109 mg/dL (70-100) H 07/28/18 06:58 Calcium 8.2 mg/dL (8.5-10.1) L 07/28/18 06:58 Magnesium 1.7 mg/dL (1.8-2.4) L 07/28/18 06:58 Total Bilirubin 0.5 mg/dL (0.2-1.0) 07/27/18 09:05 Conjugated Bilirubin 0.13 mg/dL (0.00-0.20) 07/27/18 09:05 AST 44 U/L (15-37) H 07/27/18 09:05 ALT 43 U/L (12-78) 07/27/18 09:05 Alkaline Phosphatase 75 U/L (46-116) 07/27/18 09:05 Troponin I < 0.02 ng/mL (0.00-0.06) 07/27/18 09:05 Total Protein 7.3 g/dL (6.4-8.2) 07/27/18 09:05 Albumin 3.6 g/dL (3.4-5.0) 07/27/18 09:05 Lipase 72 U/L (73-393) L 07/27/18 09:05 Urine Color Yellow (Yellow) 07/27/18 12:52 Urine Clarity Clear 07/27/18 12:52 Urine pH 7.0 (5-8) 07/27/18 12:52 Ur Specific [place] 1.010 (1.005-1.025) 07/27/18 12:52 Urine Protein Negative mg/dL (Negative) 07/27/18 12:52 Urine Ketones 40 mg/dL (Negative) H 07/27/18 12:52 Urine Blood Trace-intact (Negative) H 07/27/18 12:52 Urine Nitrite Negative (Negative) 07/27/18 12:52 Urine Bilirubin Negative (Negative) 07/27/18 12:52 Urine Urobilinogen 0.2 EU/dL (Up TO 0.2) 07/27/18 12:52 Ur Leukocyte Esterase Negative (Negative) 07/27/18 12:52 Urine RBC 0-2 (0-2) 07/27/18 12:52 Urine WBC Negative HPF (0-5) 07/27/18 12:52 Ur Epithelial Cells Rare HPF (Negative) 07/27/18 12:52 Urine Crystals Negative HPF (Negative) 07/27/18 12:52 Urine Bacteria Negative HPF (Negative) 07/27/18 12:52 Urine Casts Negative LPF (Negative) 07/27/18 12:52 Urine Mucus Negative (Negative) 07/27/18 12:52 Ur Culture Indicated? No 07/27/18 12:52 Urine Glucose Negative mg/dL (Negative) 07/27/18 12:52
--- NOTE | 2018-07-28 15:16 | NUR.NOTE ---
Nursing Note: patient anxious this morning, strongly feels she needs a fleet enema , this is suggested to the provider. She is given 2 runs of iv kcl today. Iv site needed to be replaced between the two runs. this is performed by nurse. she is given fleets with med result, sjhe relaxes ans sleeps afterwards
[2018-07-28] MEDS: Normal Saline Flush 10 ML SYR IVP ×2 (19:04→23:56)
[2018-07-28] MEDS: Acetaminophen 650 MG SUPP PR (19:05)
[2018-07-28] MEDS: Enoxaparin 40 MG/0.4 ML SYR SC (19:06)
[2018-07-28] MEDS: Senna TAB 2 TAB PO (21:46)
[2018-07-29 00:29] VITALS: BP 158/76; PULSE 88; RESP 16; O2SAT 94
[2018-07-29] MEDS: Mylanta Suspension 30 ML CUP PO (00:30)
[2018-07-29 01:32] VITALS: RESP 16
[2018-07-29] MEDS: MetroNIDAZOLE 500 MG/100 ML BAG 100 MG IVPB ×2 (02:15→08:32)
[2018-07-29 04:21] VITALS: BP 152/81; PULSE 73; RESP 16; TEMP 35.7; O2SAT 93
[2018-07-29] MEDS: CIPROFLOXACIN 400 MG/200 ML BAG IVPB (05:08)
[2018-07-29 06:53] LABS: Anion Gap 7.1 mmol/L (3-11); BUN 8 mg/dL (7-18); CO2 28.9 mmol/L (21.0-32.0); CREATININE 0.74 mg/dL (0.55-1.02); Calcium 8.7 mg/dL (8.5-10.1); Chloride 101 mmol/L (98-107); Glucose 127 mg/dL (70-100); Magnesium 2.1 mg/dL (1.8-2.4); Potassium 3.7 mmol/L (3.5-5.1); Sodium 137 mmol/L (136-145)
[2018-07-29 08:00] VITALS: BP 182/102; PULSE 95; RESP 20; TEMP 36.4; O2SAT 97
[2018-07-29] MEDS: POTASSIUM CHLORIDE 20 MEQ, POTASSIUM CHLORIDE 10 MEQ 30 MEQ PO (08:32)
[2018-07-29] MEDS: Docusate Sodium 100 MG CAP PO (08:33)
[2018-07-29] MEDS: oxyCODONE 5 MG TAB PO (09:20)
[2018-07-29 10:05] VITALS: BP 132/74
[2018-07-29] MEDS: Metoclopramide 10 MG TAB PO (11:21)
--- NOTE | 2018-07-29 12:18 | PDOC.CMDIS ---
- If Service Date Differs Date of service: 07/29/18 Time of Service: 12:18 Care Management Discharge Reason for Hospitalization: Abdominal pain, Nausea Discharge Plan: Agata will return home today with no services. She will F/U with PCP and plan of care as prescribed. Agata states that she is concerned that her pain will return, has notified RIKKI Segundo, whom will discuss management of this at home if it does occur. Patient/Family Education Needs: Review DC instructions, any limitations, and discuss Ask Me Three
--- NOTE | 2018-07-29 12:48 | DSE_ITS ---
Date of service: 07/29/18 Time of Service: 10:30 DS: Diagnosis Discharge Diagnosis (1) Diverticulitis: Status: Chronic (2) Herpes zoster: Status: Acute (3) Hypertension: Status: Acute (4) DVT prophylaxis: Status: Acute Discharge Plan Disposition Patient Disposition: HOME Condition: Poor Discharge Details Reason For Visit: DIVERTICULITIS,HERPES ZOSTER, NONOSTRUCTING- Admit Date/Time: 07/27/18 11:11 Admit Provider: Barb Ware Attending Provider: Barb Ware Primary Care Provider: CASSIE RENEE Hospital Course Hospital Course: This is a 72-year-old female patient admitted for acute diverticulitis and outbreak of shingles. Mrs. Miles was seen in the emergency room 5 days prior to her admission and diagnosed at that time with diverticulitis based on abdominal imaging. She refused admission at that time. She was started on oral Cipro and flagyl and discharged. However by the following day (07/23/18) she presented back to the emergency department with worsening abdominal pain. She was also noted to have hypertension at that time. There were no beds available here at [facility] and the patient was subsequently transferred to [facility] for admission. She was treated, then discharged from [facility] on the day prior to her admission here. She reported initially feeling better, but presented back to the ED with increased pain and nausea. While at the outside hospital the patient was also diagnosed with Herpes zoster on her left side, for which she was started on Valacyclovir. Repeat imaging in the ED at time of admission revealed Colonic diverticulosis without evidence of diverticulitis, nonobstructing left renal calculus, no evidence of acute intra-abdominal process. She has completed 7-day course of Cipro and Flagyl with improved CT scan. She remains hemodynamically stable has been afebrile with a normal white count. Her diet has been advanced and she is tolerating both fluids and food. She is however complaining of some intermittent nausea but again this is not preventing her from oral intake. Her abdominal exam is unremarkable as it remains soft with positive bowel sounds, she does report some residual left lower quadrant pain but states that this is improved and continues to improve. She also reports that her nausea has improved. Today is day 3 of 7 of antivirals to treat her acute herpes zoster. She is using oxycodone with good relief of her symptoms. She will be given oxycodone 5 mg 1 tab every 6 hours as needed severe pain dispensed 20 with no refills. I did discuss risks and benefits of narcotics including but not limited to risk of abuse and addiction. She verbalizes understanding of the prescription and its use. She was advised to call primary care provider's office first thing Monday morning for follow-up appointment Home Meds and New Rx's Prescriptions: New valacyclovir 1 gram tablet 1,000 mg PO TID Qty: 17 RF: 0 metoclopramide HCl [Reglan] 5 mg tablet 5 mg PO TID Qty: 20 RF: 0 ondansetron 4 mg tablet,disintegrating 4 mg PO TID PRN (Reason: nausea and vomiting) 5 Days RF: 0 Continue calcium carbonate 500 MG tablet,chewable 500 mg PO DAILY RF: 0 hydrochlorothiazide 25 mg tablet 25 mg PO DAILY RF: 0 multivitamin [Daily Multi-Vitamin] 1 EACH tablet 1 cap PO DAILY RF: 0 omega-3 fatty acids-fish oil [Fish Oil] 1 EACH capsule 1 cap PO DAILY RF: 0 ibuprofen 200 MG capsule 200 mg PO PRN PRNRF: 0 ciprofloxacin HCl 500 mg tablet 500 mg PO BID Qty: 20 RF: 0 metronidazole [Flagyl] 500 mg tablet 500 mg PO QID Qty: 40 RF: 0 Discharge Instructions Instructions: Diverticulitis (DC), Shingles (DC) Stand Alone Forms: Nursing Discharge Form Referrals: CASSIE RENEE [Primary Care Provider] - (Please call your PCP on Monday to schedule a follw up appointment for within 2 weeks. [phone]) Activity:: Activity as Tolerated Equipment/Supplies:: No Equipment Needed Diet:: As Tolerated Discharge Orders Discharge Orders: Discharge Order (Routine); Ordered 07/29/18 Ordered By: Ratna Corado Exam Const General: cooperative, comfortable, no acute distress and disheveled Orientation: alert and oriented x3 HENMT Head: normocephalic and atraumatic Mouth: moist mucous membranes Resp Effort & Inspection: normal respiratory effort Auscultation: clear to auscultation bilaterally Cardio Rate: regular rate Rhythm: regular rhythm GI Inspection: normal to inspection Palpation: soft Auscultation: normal bowel sounds Skin General skin exam: no rashes or lesions noted Neuro General: alert, awake and oriented x3 Extrem General: normal to inspection and full ROM Psych Affect: anxious affect Attitude: cooperative DS: Data Vitals/I&O Vitals and I&O: Vital Signs Temperature 36.4 C L 07/29/18 08:00 Temperature Source Tympanic 07/29/18 08:00 Pulse 95 H 07/29/18 08:00 Pulse Rhythm Regular 07/29/18 10:38 Pulse 89 07/27/18 12:31 Respiratory Rate 20 07/29/18 08:00 Respiratory Effort Non-Labored 07/29/18 10:38 Respiratory Depth Normal 07/29/18 10:38 Respiratory Pattern Normal 07/29/18 10:38 Blood Pressure 132/74 07/29/18 10:05 Blood Pressure Mean 109 07/27/18 12:30 Blood Pressure Position Supine 07/27/18 08:41 Pulse Oximetry 97 07/29/18 08:00 Oxygen Delivery Method Room Air 07/29/18 08:00 Oxygen Flow Rate 0 07/29/18 08:00 Pain Level 5 07/29/18 09:20 Comment 07/28/18 04:30 Intake & Output 07/28/18 07/29/18 07/29/18 23:59 11:59 23:59 Intake Total 1130 / 1130 750 / 750 Output Total 500 / 500 1000 / 1000 Balance 630 / 630 -250 / -250 Intake: IV 650 / 650 Oral 480 / 480 750 / 750 Output: Urine 500 / 500 1000 / 1000 Other: Urine Color Yellow Yellow Urine Appearance Clear Clear Urine Odor None Stool Size Moderate Stool Characteristics Soft Formed Brown Voiding Methods Toilet Labs on day of discharge: Labs from last 24 hours 07/29/18 05:58 Sodium 137 Potassium 3.7 D Chloride 101 Carbon Dioxide 28.9 Anion Gap 7.1 BUN 8 Creatinine 0.74 Estimated GFR/1.73 m2 >= 60.00 Glucose 127 H Calcium 8.7 Magnesium 2.1
== END 2018-07-29 13:21 | disposition home or self-care (01) ==
LOC: ER 11:37 → MS 12:57
PROVIDERS: Nurse Practitioner; Admitting Provider Internal Medicine; Emergency Provider Physician Assistant; PCP Family Medicine; Visit Provider Internal Medicine
DX: K57.32 Diverticulitis of large intestine without perforation or abscess without bleeding; B02.9 Zoster without complications; I10 Essential (primary) hypertension
CPT/HCPCS: 36415; 80048; 80053; 80076; 83690; 96361; 96365; 96375; 99222; 99232; 99238; 99285; J1650; 74177; 81003; 81015; 83735; 84484; 85025; 99217; 99219; 99224; 99284; G0378; J0133; J0744; J2270; J3480; J3490

== ENCOUNTER 2018-10-05 10:50 | Outpatient (CLI) | payer MEDICARE, SELFPAY ==
[2018-10-05 12:17] LABS: Hemoglobin A1C 6.1 % (4.5-6.2)
[2018-10-05 12:31] LABS: ALT 18 U/L (12-78); AST 13 U/L (15-37); Albumin 3.5 g/dL (3.4-5.0); Alkaline Phosphatase 92 U/L (46-116); Anion Gap 7.2 mmol/L (3-11); BUN 16 mg/dL (7-18); Bilirubin, Total 0.3 mg/dL (0.2-1.0); CO2 28.8 mmol/L (21.0-32.0); CREATININE 0.72 mg/dL (0.55-1.02); Chloride 104 mmol/L (98-107); Cholesterol 243 mg/dL (50-200); Glucose 89 mg/dL (70-100); HDL Cholesterol 67 mg/dL (40-60); LDL CHOLESTEROL 164 mg/dL (<100); Potassium 3.9 mmol/L (3.5-5.1); Sodium 140 mmol/L (136-145); Total Protein 6.9 g/dL (6.4-8.2); Triglyceride 72 mg/dL (30-150)
[2018-10-05 12:39] LABS: C-Reactive Protein 0.27 mg/dL (0.0-0.3)
[2018-10-05 14:32] LABS: Abs Immature Grans 0.01 k/cumm (0.0-0.09); Absolute Basophil Count 0.02 k/cumm (0.0-0.2); Absolute Eosinophil Count 0.16 k/cumm (0.0-0.7); Absolute Lymphocyte Count 1.29 k/cumm (1.2-3.4); Absolute Monocyte Count 0.53 k/cumm (0.11-0.7); Absolute Neutrophil Count 3.67 k/cumm (1.2-6.7); Basophils % 0.4; Eosinophils % 2.8; HGB 12.7 g/dL (12.0-15.5); Immature Grans % 0.2; Lymphocytes % 22.7; Mean Corp. HGB Concentration 32.6 g/dL (32.0-36.0); Mean Corpuscular Hemoglobin 30.4 pg (27.0-33.0); Mean Corpuscular Volume 93.3 fL (80-95); Mean Platelet Volume 9.7 fL (8.0-11.0); Monocytes % 9.3; Neutrophils % 64.6; Platelet Count 322 x1000/uL (130-400); RBC 4.18 m/cumm (4.00-5.20); White Blood Cell Count 5.68 k/cumm (4.4-10.8)
== END 2018-10-05 11:10 ==
PROVIDERS: PCP Student in an Organized Health Care Education/Training Program; Visit Provider Student in an Organized Health Care Education/Training Program
DX: I10 Essential (primary) hypertension (principal); K57.92 Diverticulitis of intestine, part unspecified, without perforation or abscess without bleeding; A08.4 Viral intestinal infection, unspecified; E78.5 Hyperlipidemia, unspecified; E55.9 Vitamin D deficiency, unspecified; R73.09 Other abnormal glucose; R53.83 Other fatigue; G62.9 Polyneuropathy, unspecified; H93.13 Tinnitus, bilateral
CPT/HCPCS: 36415; 80053; 80061; 82306; 83721; 83036; 84443; 85025; 86140

== ENCOUNTER 2018-12-13 01:46 | Outpatient (RCR) | payer MEDICARE, SELFPAY | END 2018-12-30 23:59 | disposition home or self-care (01) | LOC: INF 01:46 | PROVIDERS: PCP Student in an Organized Health Care Education/Training Program; Visit Provider Student in an Organized Health Care Education/Training Program | DX: I73.9 Peripheral vascular disease, unspecified (principal) ==

== ENCOUNTER → 2018-12-24 13:42 | Outpatient (BNVA) | payer MEDICARE, SELFPAY | PROVIDERS: PCP Student in an Organized Health Care Education/Training Program; Referring Provider Student in an Organized Health Care Education/Training Program; Visit Provider Nurse Practitioner Adult Health | DX: G43.009 Migraine without aura, not intractable, without status migrainosus (principal); G43.109 Migraine with aura, not intractable, without status migrainosus; S06.0X9S Concussion with loss of consciousness of unspecified duration, sequela; X58.XXXS Exposure to other specified factors, sequela | CPT/HCPCS: 99204; 99215 ==

== ENCOUNTER → 2019-02-21 12:39 | Outpatient (BNVA) | payer MEDICARE, MEDICAID, SELFPAY | PROVIDERS: PCP Student in an Organized Health Care Education/Training Program; Visit Provider Nurse Practitioner Adult Health | DX: G43.009 Migraine without aura, not intractable, without status migrainosus (principal); G43.109 Migraine with aura, not intractable, without status migrainosus | CPT/HCPCS: 99213 ==

== ENCOUNTER 2019-06-25 01:14 | Outpatient (CLI) | payer MEDICARE, MEDICAID, SELFPAY ==
--- NOTE | 2019-06-25 11:51 | DI.US_ITS ---
EXAM: US SOFT TISSUE HEAD OR NECK CLINICAL HISTORY: left face tenderness; r/o parotid abscess K11.9 DISEASE OF SALIVARY GLAND. TECHNIQUE: Ultrasound performed using standard protocol. COMPARISON: THYROID ULTRASOUND from 10/11/2017 FINDINGS: The left parotid gland measures 4.6 by 0.6 x 2.2 cm and appears normal. There is a 2.3 x 1.4 x 1.0 c m left neck lymph node. The right parotid measures 3.6 x 0.8 x 2.2 cm and appears unremarkable.
== END 2019-06-25 01:34 ==
PROVIDERS: PCP Student in an Organized Health Care Education/Training Program; Visit Provider Student in an Organized Health Care Education/Training Program
DX: K11.9 Disease of salivary gland, unspecified (principal); G50.1 Atypical facial pain; R59.0 Localized enlarged lymph nodes
CPT/HCPCS: 76536

== ENCOUNTER 2019-08-07 08:43 | Outpatient (CLI) | payer MEDICARE, MEDICAID, SELFPAY ==
--- NOTE | 2019-08-07 15:45 | DI.MAMMO_ITS ---
EXAM: MAMMO SCREENING CLINICAL HISTORY: screening Z12.39 TECHNIQUE: Mammograms were interpreted according to the usual protocol including computer analysis w [facility] CAD system, tomosynthesis and C-view imaging. COMPARISON: April 2018 FINDINGS: The breasts are heterogeneously dense. No dominant mass or clumped microcalcification is identified i n either breast. The current examination is compared with previous examinations including April 2018. There is a well-circumscribed 7 millimeter in diameter nodule which is incompletely included on the i mages which is located far posteriorly in the left breast on the MLO view. This was not visible on pr evious examinations. Additional views of the left breast are requested to assess this finding. Breast ultrasound be indicated as well. No other significant change is seen. IMPRESSION: Additional mammographic views of the left breast requested as described above. Breast ultrasound is i ndicated as well. Category 0, breast density category C. BI-RADS Cat 0 - Assessment Incomplete: Need additional imaging evaluation Breast Density - Category C - Heterogeneously dense
== END 2019-08-07 09:03 ==
PROVIDERS: PCP Student in an Organized Health Care Education/Training Program; Visit Provider Student in an Organized Health Care Education/Training Program
DX: Z12.31 Encounter for screening mammogram for malignant neoplasm of breast (principal); R92.8 Other abnormal and inconclusive findings on diagnostic imaging of breast
CPT/HCPCS: 77063; 77067

== ENCOUNTER 2019-08-19 01:05 | Outpatient (CLI) | payer MEDICARE, MEDICAID, SELFPAY ==
--- NOTE | 2019-08-19 13:38 | DI.US_ITS ---
EXAM: MG MAMMO SCREEN CALL BACK UNI AND US BREAST LT LIMITED CLINICAL HISTORY: F/O ABNL MAMMO, WELL CIRCUMSCRIBED 7 MM NODULE TECHNIQUE: Spot compression views including with tomography and C view imaging were performed. Ultr asound performed using standard protocol. COMPARISON: SCREENING BERT MAMMO W/CAD DIGI from 03/03/2011 DIAGNOSTIC RIGHT MAMMO DIGITAL from 10/06/2011 Screening Bilat Mammo from 01/26/2015 Screening Bilat Mammo from 04/13/2017 MG MAMMO SCREENING from 08/07/2019 FINDINGS: Additional views: There is a circumscribed nodule seen overlying the left pectoral muscle measuring 8 millimeters. A fatty hilum can be seen on the tomographic images. Left breast ultrasound: Posterior in the left breast, at the 1 o'clock position, 6 centimeters from t he nipple, there is a lymph node measuring 8 x 4 x 5 millimeters. There is a central fatty hilum. T here are no suspicious features. IMPRESSION: Category 2, negative mammogram and left breast ultrasound with benign findings of a normal-appearing lymph node. Yearly screening mammography is recommended. BI-RADS Cat 2 - Benign Breast Density - Category C - Heterogeneously dense
== END 2019-08-19 01:25 ==
PROVIDERS: PCP Student in an Organized Health Care Education/Training Program; Visit Provider Student in an Organized Health Care Education/Training Program
DX: Z12.31 Encounter for screening mammogram for malignant neoplasm of breast (principal); R92.8 Other abnormal and inconclusive findings on diagnostic imaging of breast; N63.21 Unspecified lump in the left breast, upper outer quadrant; R59.0 Localized enlarged lymph nodes
CPT/HCPCS: 76642; 77063; 77067

== ENCOUNTER → 2019-10-08 12:09 | Outpatient (BNVA) | payer MEDICARE, MEDICAID, SELFPAY | PROVIDERS: PCP Student in an Organized Health Care Education/Training Program; Referring Provider Student in an Organized Health Care Education/Training Program; Visit Provider Psychiatry & Neurology Neurology | DX: G62.9 Polyneuropathy, unspecified (principal); R73.03 Prediabetes | CPT/HCPCS: 99215 ==

== ENCOUNTER 2019-10-14 13:57 | Outpatient (CLI) | payer MEDICARE, SELFPAY ==
[2019-10-14 14:55] LABS: Hemoglobin A1C 6.2 % (3.8-5.6)
[2019-10-14 16:13] LABS: Vitamin B12 633 pg/mL (193-986)
[2019-10-15 11:16] LABS: Anion Gap 9.7 mmol/L (3-11); BUN 15 mg/dL (7-18); CO2 28.3 mmol/L (21.0-32.0); CREATININE 0.78 mg/dL (0.55-1.02); Calcium 9.2 mg/dL (8.5-10.1); Chloride 103 mmol/L (98-107); Glucose 92 mg/dL (74-106); Potassium 3.9 mmol/L (3.5-5.1); Sodium 141 mmol/L (136-145)
== END 2019-10-14 14:17 ==
PROVIDERS: PCP Student in an Organized Health Care Education/Training Program; Visit Provider Psychiatry & Neurology Neurology
DX: R73.09 Other abnormal glucose (principal); I10 Essential (primary) hypertension; R79.89 Other specified abnormal findings of blood chemistry; G62.9 Polyneuropathy, unspecified
CPT/HCPCS: 36415; 80048; 82607; 83036; 84165

== ENCOUNTER 2020-06-05 16:10 | Outpatient (CLI) | payer MEDICARE, MEDICAID, SELFPAY ==
--- NOTE | 2020-06-05 12:30 | DI.RAD_ITS ---
EXAM: XR HIP PELVIS ADULT BL CLINICAL HISTORY: Hip pain, M25.559, evaluate arthritis, r/o bony pathology s/p fall. TECHNIQUE: 2D digital imaging was performed. COMPARISON: CR XR ABD FLAT UPRIGHT PA CHEST from 07/23/2018 FINDINGS: BONES: No acute fracture is present. No bony destructive lesion is seen. Deformity involving the left inferior pubic ramus which is stable. JOINTS: No dislocation present. SOFT TISSUE: Normal. IMPRESSION: No acute fracture or dislocation. DATA REPOSITORY: RADIATION DOSE DELIVERED:
--- NOTE | 2020-06-05 12:49 | DI.RAD_ITS ---
EXAM: XR KNEE RT 2V AP,LAT CLINICAL HISTORY: Rt knee pain, M25.561, evaluate for arthritis, r/o bony pathology. TECHNIQUE: 2D digital imaging was performed. COMPARISON: No previous for comparison. FINDINGS: BONES: No acute fracture is present. No bony destructive lesion is seen. JOINTS: The knee is normally aligned. No joint effusion is seen. Mild joint space narrowing and peria rticular spurring is seen in the medial femoral tibial joint. SOFT TISSUE: Normal. IMPRESSION: Mild degenerative changes of the right knee. DATA REPOSITORY: RADIATION DOSE DELIVERED:
== END 2020-06-05 16:30 ==
PROVIDERS: PCP Student in an Organized Health Care Education/Training Program; Visit Provider Student in an Organized Health Care Education/Training Program
DX: M17.11 Unilateral primary osteoarthritis, right knee (principal); M25.559 Pain in unspecified hip; I63.9 Cerebral infarction, unspecified; I26.99 Other pulmonary embolism without acute cor pulmonale; I10 Essential (primary) hypertension
CPT/HCPCS: 73521; 99203; 99214; 73560

== ENCOUNTER 2020-06-30 02:48 | Outpatient (CLI) | payer MEDICARE, MEDICAID, SELFPAY ==
[2020-06-30 11:39] LABS: Vitamin B12 691 pg/mL (193-986)
== END 2020-06-30 03:08 ==
PROVIDERS: PCP Student in an Organized Health Care Education/Training Program; Visit Provider Student in an Organized Health Care Education/Training Program
DX: E53.8 Deficiency of other specified B group vitamins (principal); G63 Polyneuropathy in diseases classified elsewhere
CPT/HCPCS: 36415; 82607

== ENCOUNTER → 2020-10-27 09:45 | Outpatient (BNVA) | payer MEDICARE, MEDICAID, SELFPAY | PROVIDERS: PCP Student in an Organized Health Care Education/Training Program; Referring Provider Student in an Organized Health Care Education/Training Program; Visit Provider Psychiatry & Neurology Neurology | DX: R13.10 Dysphagia, unspecified (principal); G62.9 Polyneuropathy, unspecified; I63.50 Cerebral infarction due to unspecified occlusion or stenosis of unspecified cerebral artery; I65.22 Occlusion and stenosis of left carotid artery; R53.83 Other fatigue | CPT/HCPCS: 99215; G2212 ==

== ENCOUNTER 2021-02-18 12:40 | Outpatient (CLI) | payer MEDICARE, MEDICAID, SELFPAY ==
--- NOTE | 2021-02-18 10:45 | DI.RAD_ITS ---
Exam(s) XR SACROILIAC JOINTS EXAM: XR SACROILIAC JOINTS CLINICAL HISTORY: r/o bony pathology; evaluate OA LOWER BACK PAIN M54.5. TECHNIQUE: 2D digital imaging was performed. COMPARISON: No exams were available for comparison dedicated views of the sacroiliac joints reveal s ome degenerative change at the mid aspect of the left sacroiliac joint. No ankylosis. Opposite-righ t SI joint appears unremarkable. No osseous lesions evident. Visualized hip joint spaces appear unr emarkable. Multilevel degenerative disc disease in the lumbar spine is incidentally noted. FINDINGS: IMPRESSION: DATA REPOSITORY: RADIATION DOSE DELIVERED:
== END 2021-02-18 13:00 ==
PROVIDERS: PCP Student in an Organized Health Care Education/Training Program; Visit Provider Student in an Organized Health Care Education/Training Program
DX: M54.5 Low back pain (principal)
CPT/HCPCS: 72202

== ENCOUNTER 2021-03-03 01:53 | Outpatient (CLI) | payer MEDICARE, MEDICAID, SELFPAY ==
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
--- NOTE | 2021-03-03 15:10 | DI.RAD_ITS ---
Exam(s) RF MODIFIED SPEECH BA SWALLOW TECHNIQUE: Modified barium swallow was performed in conjunction with speech pathology. CONTRAST MATERIAL: Oral barium Oral water soluble contrast was administered. COMPARISON: No exams were available for comparison FINDINGS: Modified barium swallow was performed in conjunction with the department speech pathology. Please re ashley to the procedure report from the speech pathologist for complete details. IMPRESSION: RADIATION DOSE DELIVERED: finesse Nuñez=15.3 mGy
[2021-03-03] MEDS: Barium Sulfate 700 MG TAB PO (15:12)
[2021-03-03] MEDS: Barium Sulfate 81% w/w for Oral Suspension 148 GM BTL 130 GM PO (15:14)
[2021-03-03] MEDS: Barium Sulfate 40% W/V 240 ML BTL 80 ML PO (15:15)
[2021-03-03] MEDS: Barium Sulfate 40% W/V 1500 CPS 250 ML BTL 100 ML PO (15:17)
[2021-03-03] MEDS: Barium Sulfate Oral Paste 40% W/V 230 ML TUBE 90 ML PO (15:19)
== END 2021-03-03 02:13 ==
PROVIDERS: PCP Student in an Organized Health Care Education/Training Program; Visit Provider Speech-Language Pathologist
DX: R13.12 Dysphagia, oropharyngeal phase (principal); I63.50 Cerebral infarction due to unspecified occlusion or stenosis of unspecified cerebral artery
CPT/HCPCS: 74221

== ENCOUNTER 2021-03-03 03:29 | Outpatient (CLI) | payer MEDICARE, MEDICAID, SELFPAY ==
[2021-03-03 13:36] LABS: HCT 34.1 % (36.0-46.0); HGB 11.1 g/dL (11.2-15.7); MCHC 32.6 % (32.0-36.0); MCV 92.2 fL (80-95); MPV 8.9 fL (8.0-11.0); Platelet Count 323 10^3/uL (130-400); RDW 13.3 % (11.7-14.6); RDW-SD 45.3 fL; WBC 5.77 10^3/uL (4.4-10.8)
[2021-03-03 14:21] LABS: Iron 45 ug/dL (50-170); Total Iron Binding Capacity 372 ug/dL (250-450)
[2021-03-03 14:37] LABS: ALT 31 U/L (14-59); AST 22 U/L (15-37); Albumin 3.8 g/dL (3.4-5.0); Alkaline Phosphatase 79 U/L (46-116); Anion Gap 8.3 mmol/L (3-11); BUN 16 mg/dL (7-18); Bilirubin, Total 0.3 mg/dL (0.2-1.0); CO2 29.7 mmol/L (21.0-32.0); CREATININE 0.9 mg/dL (0.55-1.02); Calcium 9.5 mg/dL (8.5-10.1); Calculated LDL 80 mg/dL (<100); Chloride 103 mmol/L (98-107); Cholesterol 165 mg/dL (<200); Ferritin 115 ng/mL (8-252); Glucose 102 mg/dL (74-106); HDL Cholesterol 78 mg/dL (40-60); Potassium 3.7 mmol/L (3.5-5.1); Sodium 141 mmol/L (136-145); Total Protein 7.1 g/dL (6.4-8.2); Triglyceride 35 mg/dL (<150)
== END 2021-03-03 03:30 | disposition home or self-care (01) ==
LOC: LBO 03:29
PROVIDERS: PCP Student in an Organized Health Care Education/Training Program; Visit Provider Student in an Organized Health Care Education/Training Program
DX: R53.83 Other fatigue (principal); R06.09 Other forms of dyspnea; D50.9 Iron deficiency anemia, unspecified; A08.4 Viral intestinal infection, unspecified; F32.9 Major depressive disorder, single episode, unspecified; I10 Essential (primary) hypertension; R13.12 Dysphagia, oropharyngeal phase; I63.50 Cerebral infarction due to unspecified occlusion or stenosis of unspecified cerebral artery
CPT/HCPCS: 36415; 80053; 80061; 85027; 74221; 82728; 83540; 83550

== ENCOUNTER 2021-03-25 02:37 | Outpatient (CLI) | payer MEDICARE, MEDICAID, SELFPAY ==
--- NOTE | 2021-03-25 08:45 | DI.RAD_ITS ---
Exam(s) XR LUMBAR SPINE COMPLETE EXAM: XR LUMBAR SPINE COMPLETE CLINICAL HISTORY: r/o bOny path; r/o vert Fx,BACK PAIN DUE TO INJURY,H/O VERT COMPRESSION. TECHNIQUE: 2D digital imaging was performed. CR XR SACROILIAC JOINTS from 02/18/2021 FINDINGS: There is osteopenia but no compression fractures in the lumbar spine. Multilevel disc space narrowin g. Also significant anterolisthesis L4 upon L5, approximately 1.5 cm. This related to degenerative changes in the facet joints at L4-5 level. There is also an element of anterolisthesis of L5 upon S1, approximately 1 cm and this also appears t o be related to degenerative facet joint arthropathy. There is also prominent disc space narrowing a t L5-S1 level.. There is scoliosis convex left. No ankylosis of the SI joints. There is barium not ed within multiple sigmoid diverticuli. IMPRESSION: Osteopenia. Multilevel degenerative disc disease and multilevel degenerative listhesis as described above. If clinically indicated flexion extension lateral views could be performed to determine the t rue amount of slippage during everyday activity. DATA REPOSITORY: RADIATION DOSE DELIVERED:
--- NOTE | 2021-03-25 08:45 | DI.RAD_ITS ---
Exam(s) XR THORACIC SPINE COMPLETE EXAM: XR THORACIC SPINE COMPLETE CLINICAL HISTORY: r/o bony pathology,H/O VERTEBRAL COMPRESSION, BACK PAIN, INJURY,R53.83,M54.. TECHNIQUE: 2D digital imaging was performed. COMPARISON: No exams were available for comparison FINDINGS: There is a bidirectional thoracolumbar scoliosis which is convex right in the thoracic spine and conv ex left in the lumbar spine. No obvious compression fractures evident. There is disc space narrowing on the left side of T6-T7 di sc space, this being the epicenter of the psoas scoliosis in the thoracic spine. Also narrowing the left side the disc space at T7-T8. There is loss of height of a upper thoracic vertebra at superior endplate level, this probably being T3. IMPRESSION: Bidirectional thoracolumbar scoliosis as described above. Slight loss of height of T3 or T4 vertebra l body at superior endplate level, approximately 20 percent, probably not acute. DATA REPOSITORY: RADIATION DOSE DELIVERED:
== END 2021-03-25 02:57 ==
PROVIDERS: PCP Student in an Organized Health Care Education/Training Program; Visit Provider Student in an Organized Health Care Education/Training Program
DX: M41.85 Other forms of scoliosis, thoracolumbar region (principal); M85.88 Other specified disorders of bone density and structure, other site; M51.37 Other intervertebral disc degeneration, lumbosacral region; M43.17 Spondylolisthesis, lumbosacral region; S29.9XXA Unspecified injury of thorax, initial encounter; R53.83 Other fatigue; X58.XXXA Exposure to other specified factors, initial encounter
CPT/HCPCS: 72072; 72110

== ENCOUNTER 2021-04-06 02:49 | Outpatient (CLI) | payer MEDICARE, MEDICAID, SELFPAY ==
--- NOTE | 2021-04-06 08:00 | DI.DEXA_ITS ---
Exam(s) XR DEXA BONE DENSITY W/WO ELLIOT EXAM: XR DEXA BONE DENSITY W/WO ELLIOT CLINICAL HISTORY: evaluate bone density,HIGH RISK FOR FX DUE TO OSTEOPOROSIS, M81.0 TECHNIQUE: COMPARISON: No exams were available for comparison FINDINGS: Lateral Spine Image: Unremarkable. Left hip: Total T-Score: -2.7 Total Z-Score: -0.8 T- and Z-scores: Findings consistent with osteoporosis. Lumbar Spine: Total T-Score: -2.6 Total Z-Score: -0.1 T- and Z-scores: Findings consistent with osteoporosis. IMPRESSION: Findings of osteoporosis.
== END 2021-04-06 03:09 ==
PROVIDERS: PCP Student in an Organized Health Care Education/Training Program; Visit Provider Student in an Organized Health Care Education/Training Program
DX: M81.0 Age-related osteoporosis without current pathological fracture (principal)
CPT/HCPCS: 77080

== ENCOUNTER 2021-05-07 05:17 | Outpatient (RCR) | payer MEDICARE, MEDICAID, SELFPAY ==
[2021-05-07] MEDS: Normal Saline Flush 10 ML SYR IVP (13:13)
== END 2021-06-01 23:59 | disposition home or self-care (01) ==
LOC: INF 05:17
PROVIDERS: PCP Student in an Organized Health Care Education/Training Program; Visit Provider Student in an Organized Health Care Education/Training Program
DX: M81.0 Age-related osteoporosis without current pathological fracture (principal)
CPT/HCPCS: 96365; J3489

== ENCOUNTER 2021-06-03 01:24 | Outpatient (CLI) | payer MEDICARE, MEDICAID, SELFPAY ==
--- NOTE | 2021-06-03 07:56 | DI.RAD_ITS ---
Exam(s) XR LUMBAR SPINE COMP W FLEX/EX EXAM: XR LUMBAR SPINE COMP W FLEX/EX CLINICAL HISTORY: review listhesis, sliding comparison,ACUTE LOW BACK PAIN,M54.5 TECHNIQUE: 2D digital imaging was performed. CR XR LUMBAR SPINE COMPLETE from 03/25/2021 CR XR LUMBAR SPINE COMPLETE from 03/25/2021 CR XR DEXA BONE DENSITY W/WO ELLIOT from 04/06/2021 CR XR DEXA BONE DENSITY W/WO ELLIOT from 04/06/2021 FINDINGS: Exam is limited by overlying bowel. There is again noted to be spondylolisthesis at L4-5 and L5-S1. Findings do not appear to change with flexion or extension. Facet degenerative changes and degenera tive disc changes are noted. The findings appear stable when compared with a CT of the abdomen and p marguerite dated 27 July 2018. No spondylolysis is seen. IMPRESSION: Stable spondylolisthesis at L4-5 and L5-S1. No change with flexion and extension.
== END 2021-06-03 01:44 ==
PROVIDERS: PCP Student in an Organized Health Care Education/Training Program; Visit Provider Student in an Organized Health Care Education/Training Program
DX: G89.29 Other chronic pain (principal); M54.5 Low back pain; M43.16 Spondylolisthesis, lumbar region; M43.17 Spondylolisthesis, lumbosacral region
CPT/HCPCS: 72114

== ENCOUNTER 2021-06-30 01:47 | Outpatient (CLI) | payer MEDICARE, MEDICAID, SELFPAY ==
--- NOTE | 2021-06-30 14:08 | DI.US_ITS ---
APPROVED REPORT EXAM: Comprehensive 2D, Doppler, and color-flow Echocardiogram Patient Location: Out-Patient Supply Person: Fina Hampton RDCS (AE) Indications: Fatigue, SOB, Dyspnea Other Information Study Quality: Good Conclusion Normal left ventricular wall thickness and chamber size. Estimated ejection fraction is 60 to 65%. Wall motion is normal Normal right ventricular size and systolic function The left atrium is mildly dilated. Right atrium is normal in size There are no structural valvular abnormalities Mild mitral and tricuspid regurgitation Normal estimated right ventricular systolic pressure 24 mmHg Wall motion Left Ventricle The left ventricle is normal size. The left ventricular systolic function is normal. The left ventric ular ejection fraction is within the normal range. There is normal left ventricular wall thickness. T here is normal LV segmental wall motion. There is no ventricular septal defect visualized. LVEF is 60 -65%. Right Ventricle The right ventricle is normal size. The right ventricular systolic function is normal. The RVSP is 24 .1 mmHg. Atria Left atrium is mildly dilated. The right atrium size is normal. The interatrial septum is intact with no evidence for an atrial septal defect. Aortic Valve The aortic valve is normal in structure. Aortic valve is trileaflet. There is no aortic valvular sten osis. No aortic regurgitation is present. Mitral Valve The mitral valve is normal in structure. No evidence of mitral valve stenosis. Mild mitral regurgitat ion. Tricuspid Valve The tricuspid valve is normal in structure. There is no tricuspid valve stenosis. Mild tricuspid regu rgitation. Pulmonic Valve The pulmonary valve is normal in structure. There is no pulmonic valvular stenosis. There is no pulmo west valvular regurgitation. Great Vessels The aortic root is normal in size. The ascending aorta is normal in size. Aortic arch is normal in ca liber. IVC is normal in size and collapses >50% with inspiration. Pericardium There is no pericardial effusion. 2D Dimensions IVSD d PLAX 1.04 cm F: 0.6-1.0 LV Vol A2C d MOD 80.9 mL LVPW d PLAX 1.01 cm F: 0.6 - 1.0 LV Vol A4C d MOD 76.0 mL LVID d PLAX 4.21 cm F: 3.8 - 5.2 LA vol/ BSA A2C s A-L 36.6 mL/m2 LVDs 2.90 cm F: 2.2 - 3.5 LA vol/ BSA A4C s A-L 37.6 mL/m2 Ao Root d 2.62 cm F: 2.7 - 3.3 LA Vol/ BSA Biplane s A-L 37.8 mL/m2 RA Area A4C 12.35 cm2 LA Area A4C s MOD 20.79 cm2 RA Vol/ BSA A4C s A-L 17.1 mL/m2 LA Area A2C s MOD 20.87 cm2 Ao Asc Diam d 3.19 cm F: 2.3 - 3.1 LV EF A4C MOD 58.7 % LV EF Teichholz 58.3 % LV EF A2C MOD 60.6 % LVEF (Davies's) 59.08 % F: 54 - 74 LV EF Biplane MOD 59.1 % LV Volume 63.60 mL F: 46 - 106 SV 46.71 mL LV Volume Index 38.78 mL/m2 F: 29 - 61 SV Index 28.43 mL/m2 LV Vol Biplane MOD 79.1 mL FS 30.45 % M-Mode TAPSE 1.87 cm (M/F) >1.7 LV Diastology MV E' medial 0.065 (>0.07 m/s) E/A Ratio 0.7 LV E/e MED 9.90 (<14) MV E Vmax 0.64 (0.4-1.3 m/s) MV E' lateral 0.076 (>0.1 m/s) MV A Vmax 0.95 (0.4-1.3 m/s) LV E/e LAT 8.45 (<14) MV E/A Ratio 0.66 MV E/E' medial 9.92 MV E/E' lateral 8.48 Aortic Valve LVOT Area 2.93 cm2 AoV Area Vmax 2.55 cm2 LVOT Vmax 1.14 m/s AoV Area/ BSA (Vmax) 1.55 cm2/m2 LVOT Mean Julien. 0.73 m/s MILTON Mean Julien. 2.55 cm2 LVOT Peak Grad 5.2 mmHg MILTON Mean Julien. Index 1.55 cm2/m2 LVOT Mean Grad 2.5 mmHg LVOT VTI 0.231 m LVOT Diam s 1.90 cm AoV Vmax 1.31 m/s Velocity Ratio 0.87 AoV Mean Julien. 0.84 m/s AoV Peak Grad 6.8 mmHg LVOT SV 67.69 mL AoV Mean Grad 3.2 mmHg AoV VTI 0.312 m AoV Area VTI 2.17 cm2 AoV Area/ BSA (VTI) 1.32 cm/m2 Mitral Valve MV DT 336 (160-240 msec) MR Vmax 4.86 m/s MV PHT 97 msec MR VTI 1.808 m MV Area PHT 2.26 cm2 MR Peak Grad 94.7 mmHg MV VTI 0.299 m MR Mean Grad 62.5 mmHg MV VTI Annulus 0.302 m MV Area VTI 2.29 (4.0-6.0 cm2) Pulmonary Valve PV Vmax 0.81 (0.5-1.5 m/s) RVOT Peak Gr. 1.25 mmHg PV Peak Grad 2.6 mmHg RVOT Mean Gr. 0.60 mmHg PV Mean Grad 1.5 mmHg RVOT VTI 0.126 m PV VTI 0.195 m RVOT Vmax 0.56 m/s Tricuspid Valve TR Peak Grad 21.0 mmHg TR Vmax 2.29 m/s RA Pressure 3.00 mmHg RVSP (TR) 24.1 mmHg
== END 2021-06-30 02:07 ==
PROVIDERS: PCP Student in an Organized Health Care Education/Training Program; Visit Provider Student in an Organized Health Care Education/Training Program
DX: R06.09 Other forms of dyspnea (principal); I08.1 Rheumatic disorders of both mitral and tricuspid valves
CPT/HCPCS: 93306

== ENCOUNTER 2021-06-30 03:48 | Outpatient (CLI) | payer MEDICARE, MEDICAID, SELFPAY ==
[2021-06-30 13:50] LABS: HCT 36.7 % (36.0-46.0); HGB 11.7 g/dL (11.2-15.7); MCH 28.9 pg (27.0-33.0); MCHC 31.9 % (32.0-36.0); MCV 90.6 fL (80-95); MPV 8.5 fL (8.0-11.0); Platelet Count 292 10^3/uL (130-400); RBC 4.05 10^6/uL (3.93-5.22); RDW 13.5 % (11.7-14.6); RDW-SD 45.3 fL; WBC 5.56 10^3/uL (4.4-10.8)
[2021-06-30 14:50] LABS: Iron 61 ug/dL (50-170)
[2021-06-30 15:02] LABS: Anion Gap 7.3 mmol/L (3-11); BUN 16 mg/dL (7-18); CO2 30.7 mmol/L (21.0-32.0); CREATININE 0.8 mg/dL (0.55-1.02); Calcium 9.1 mg/dL (8.5-10.1); Chloride 103 mmol/L (98-107); Glucose 86 mg/dL (74-106); Potassium 3.7 mmol/L (3.5-5.1); Sodium 141 mmol/L (136-145); TSH (W/Ref FT4) 1.14 uIU/mL (0.36-3.74)
== END 2021-06-30 03:49 | disposition home or self-care (01) ==
LOC: LBO 03:48
PROVIDERS: PCP Student in an Organized Health Care Education/Training Program; Visit Provider Student in an Organized Health Care Education/Training Program
DX: I10 Essential (primary) hypertension (principal); D64.9 Anemia, unspecified; L65.9 Nonscarring hair loss, unspecified; F32.9 Major depressive disorder, single episode, unspecified; G62.9 Polyneuropathy, unspecified
CPT/HCPCS: 36415; 80048; 85027; 93306; 83540; 84443

== ENCOUNTER 2021-07-23 01:07 | Outpatient (CLI) | payer MEDICARE, MEDICAID, SELFPAY ==
--- NOTE | 2021-07-23 11:56 | DI.MAMMO_ITS ---
Exam(s) MAMMO SCREENING EXAM: MAMMO SCREENING CLINICAL HISTORY: screening,Z12.39 TECHNIQUE: Bilateral full field digital CC and MLO mammographic images were obtained with 3D tomosyn thesis and utilizing computer aided detection (CAD). COMPARISON: Available for comparison. FINDINGS: Masses/Architectural Distortion: There are several well-circumscribed bilateral breast nodules presen t. No suspicious masses are seen. No areas of architectural distortion. Microcalcifications: No suspicious pleomorphic-type are seen. Skin Thickening/Nipple Retraction: None. IMPRESSION: 1. No significant interval change with no specific features of malignancy noted. 2. Unless there is more urgent need, screening mammography is recommended, as per [place] [employer] guidelines. BI-RADS Category 2 - Benign Findings Breast Density - Category C - Heterogeneously dense Breast density category C or D implies that the patient has dense breast tissue. Dense breast tissue is very common and is not abnormal but dense breast tissue can make it harder to find cancer on a ma mmogram. Also, dense breast tissue may increase their breast cancer risk. This information about the result of the mammogram report was provided to the patient to raise their awareness. Use this report when you speak with the patient about their risks for breast cancer, which includes their family hist ory. At that time, you may recommend for more screening tests (Ultrasound or MRI) as they might be us eful based on their risk. A negative radiographic report should not delay biopsy if a dominant or clinically suspicious mass is present. Up to ten percent of cancers are not identified on mammography. A negative report may reinforce clinical impression. Adenosis and dense breasts may obscure an underlying neoplasm. False positive reports average 6 to 10%. Patient will receive a letter notifying them of these results.
== END 2021-07-23 01:27 ==
PROVIDERS: PCP Student in an Organized Health Care Education/Training Program; Visit Provider Student in an Organized Health Care Education/Training Program
DX: Z12.31 Encounter for screening mammogram for malignant neoplasm of breast (principal); R92.8 Other abnormal and inconclusive findings on diagnostic imaging of breast
CPT/HCPCS: 77063; 77067

== ENCOUNTER → 2022-02-22 01:45 | Outpatient (CLI) | payer MEDICARE, MEDICAID, SELFPAY ==
--- NOTE | 2022-02-22 07:45 | DI.CT_ITS ---
Exam(s) CT CHEST WO EXAM: CT CHEST WO CLINICAL HISTORY: evaluate nodules hiatal hernia (abd ct?), SOB, LUNG NODULE, HIATAL HERNIA TECHNIQUE: CT examination of the chest was performed utilizing low-dose lung cancer screening protoc ol. FINDINGS: Images obtained through the upper abdomen show unremarkable appearance of visualized portions of the liver, spleen, pancreas, adrenals, and kidneys.. There is no mediastinal or hilar adenopathy. Mediastinal vascular structures appear intact by noncon trast criteria. Tracheobronchial tree appears intact. No pleural effusion or pleural-based mass. There are scattered changes of pulmonary scarring and moderate pulmonary emphysematous changes. Ther e is a 5 millimeter mean diameter probably fissural right lower lobe intrapulmonary nodule which is n oncalcified and this was probably present on prior CT of July 2018, little interval change in appe arance from the prior study. No additional significant nodule seen. IMPRESSION: BI-RADS Cat 2 - Benign Findings Continue annual screening with LDCT in 12 months. Lung-RADS 1.0 CATEGORIES: Category 0 - Prior chest CT exam(s) being located for comparison. Category 1 - Annual screening in 12 months. No nodules or definitely benign nodules. Category 2 - Annual screening in 12 months. Benign appearance. Nodules with low likelihood of becomin g active cancer. Category 3 - 6-month follow-up. Probably benign. Short-term follow-up suggested. Nodules with low lik elihood of becoming active cancer. Category 4A - 3-month follow-up and CT/PET if >8 mm in size. Suspicious finding. Findings which requi re additional testing. Category 4B - Findings which require additional testing and tissue sampling. Suspicious finding. Category 4X - Category 3 or 4 nodules with additional features or imaging findings that increases the suspicion of malignancy. Modifier S- Potentially clinically significant finding. (Non lung cancer) RADIATION DOSE DELIVERED: 400.6mGy.cm Total DLP CTDIvol 400.6mGy.cm Total DLP !Error CTDIvol RADIATION OPTIMIZATION: All CT scans at this facility use at least one of these dose optimization te chniques: automated exposure control; mA and/or kV adjustment per patient size (includes targeted exa ms where dose is matched to clinical indication); or iterative reconstruction.
== END ==
PROVIDERS: PCP Student in an Organized Health Care Education/Training Program; Visit Provider Student in an Organized Health Care Education/Training Program
DX: R06.02 Shortness of breath (principal); R91.1 Solitary pulmonary nodule; K44.9 Diaphragmatic hernia without obstruction or gangrene; J43.8 Other emphysema; J98.4 Other disorders of lung
CPT/HCPCS: 71250

== ENCOUNTER → 2022-02-25 00:29 | Outpatient (CLI) | payer MEDICARE, MEDICAID, SELFPAY ==
--- NOTE | 2022-02-25 07:15 | DI.RAD_ITS ---
Exam(s) XR SACRUM COCCYX EXAM: XR SACRUM COCCYX CLINICAL HISTORY: evaluate sacrum and coccyx as much as possible, fall, coccygeal pain,. TECHNIQUE: 2D digital imaging was performed. COMPARISON: CR XR SACROILIAC JOINTS from 02/18/2021 CR XR LUMBAR SPINE COMPLETE from 03/25/2021 CR XR DEXA BONE DENSITY W/WO ELLIOT from 04/06/2021 CR XR LUMBAR SPINE COMP W FLEX/EX from 06/03/2021 FINDINGS: BONES: Old fracture left inferior pubic ramus. No change in appearance of sacrum and coccyx as seen on the lateral view. Sacrum and coccyx mostly obscured on the AP view due to overlying bowel. No ac rik fracture is visible. No bony destructive lesion is seen. JOINTS: No dislocation present. Degenerative changes SI joints, left greater than right. Hip joint s paces are well maintained. Mild sclerosis at the pubic symphysis. Advanced degenerative changes in the lower lumbar spine. SOFT TISSUE: Normal. IMPRESSION: No visible acute sacral fracture. DATA REPOSITORY: RADIATION DOSE DELIVERED:
--- NOTE | 2022-02-25 12:15 | DI.RAD_ITS ---
Exam(s) XR LUMBAR SPINE COMP W FLEX/EX EXAM: XR LUMBAR SPINE COMP W FLEX/EX CLINICAL HISTORY: evaluate lumbar spine, above coccyx pn M54.9 DORSALGIA S20.229A CONTUSION. TECHNIQUE: 2D digital imaging was performed. Seven views. Flexion and extension lateral views were performed in addition to the routine views. COMPARISON: CR XR LUMBAR SPINE COMPLETE from 03/25/2021 CR XR THORACIC SPINE COMPLETE from 03/25/2021 CR XR LUMBAR SPINE COMP W FLEX/EX from 06/03/2021 FINDINGS: Exam somewhat limited by overlying bowel gas and positioning on the flexion and extension views. BONES: No destructive lesion. Mild compression fractures of T10 and T11, stable from priors.. No daisy mbar compression fractures.. facet hypertrophy identified at multiple levels, greatest at L 3 4 thr ough L5-S1.. DISKS: Narrowing of the L3-4 through L5-S1 disc spaces.. ALIGNMENT: Degenerative mild levoscoliosis. Stable L4-5 and L5-S1 spondylolisthesis without signif icant change with flexion and extension. SOFT TISSUE: Aorta calcified. IMPRESSION: Stable appearance of degenerative disc changes, facet degenerative changes and spondylolisthesis. St able T10 and T11 compression fractures. DATA REPOSITORY: RADIATION DOSE DELIVERED:
== END ==
PROVIDERS: PCP Student in an Organized Health Care Education/Training Program; Visit Provider Student in an Organized Health Care Education/Training Program
DX: M53.3 Sacrococcygeal disorders, not elsewhere classified (principal); W19.XXXA Unspecified fall, initial encounter; M54.89 Other dorsalgia; S20.229A Contusion of unspecified back wall of thorax, initial encounter; M51.37 Other intervertebral disc degeneration, lumbosacral region; M47.817 Spondylosis without myelopathy or radiculopathy, lumbosacral region; M48.54XD Collapsed vertebra, not elsewhere classified, thoracic region, subsequent encounter for fracture with routine healing
CPT/HCPCS: 72114; 72220

== ENCOUNTER → 2022-03-07 01:04 | Outpatient (CLI) | payer MEDICARE, MEDICAID, SELFPAY ==
--- NOTE | 2022-03-07 13:46 | DI.RAD_ITS ---
Exam(s) XR FOOT LT LIMITED EXAM: XR FOOT LT LIMITED CLINICAL HISTORY: LT FOOT PAIN, M79.672. TECHNIQUE: 2D digital imaging was performed. Two views. COMPARISON: CR XR FOOT RT COMPLETE from 03/07/2022 FINDINGS: BONES: No acute fracture is present. No bony destructive lesion is seen. Tiny heel spur. JOINTS: No dislocation present. Mild narrowing of the 1st MTP joint with minimal periarticular spurr ing. SOFT TISSUE: Normal. IMPRESSION: Mild 1st MTP joint degenerative changes and tiny heel spur. DATA REPOSITORY: RADIATION DOSE DELIVERED:
--- NOTE | 2022-03-07 13:47 | DI.RAD_ITS ---
Exam(s) XR FOOT RT COMPLETE EXAM: XR FOOT RT COMPLETE CLINICAL HISTORY: RT FOOT PAIN, M79.671. TECHNIQUE: 2D digital imaging was performed. Three views. COMPARISON: CR XR FOOT LT LIMITED from 03/07/2022 FINDINGS: BONES: No acute fracture is present. No bony destructive lesion is seen. No heel spur. JOINTS: No dislocation present. Moderate narrowing of the 1st MTP joint. Spurring seen greatest at the medial aspect of the base of the proximal phalanx. No significant hallux valgus. SOFT TISSUE: Normal. IMPRESSION: Moderate degenerative changes 1st MTP joint. DATA REPOSITORY: RADIATION DOSE DELIVERED:
== END ==
PROVIDERS: PCP Student in an Organized Health Care Education/Training Program; Visit Provider Podiatrist Foot & Ankle Surgery
DX: M79.671 Pain in right foot (principal); M79.672 Pain in left foot; M19.071 Primary osteoarthritis, right ankle and foot; M77.32 Calcaneal spur, left foot
CPT/HCPCS: 73620; 73630

== ENCOUNTER 2022-06-23 03:52 | Outpatient (CLI) | payer MEDICARE, MEDICAID, SELFPAY ==
[2022-06-23 12:24] LABS: HGB 12.5 g/dL (11.2-15.7)
[2022-06-23 13:52] LABS: Vitamin D 25 Total 53.3 ng/mL (30-100)
[2022-06-23 14:01] LABS: ALT 29 U/L (14-59); AST 22 U/L (15-37); Alkaline Phosphatase 65 U/L (46-116); Anion Gap 7.8 mmol/L (3-11); BUN 24 mg/dL (7-18); Bilirubin, Total 0.4 mg/dL (0.2-1.0); CO2 29.2 mmol/L (21.0-32.0); CREATININE 0.9 mg/dL (0.55-1.02); Calcium 9.4 mg/dL (8.5-10.1); Calculated LDL 101 mg/dL (<100); Chloride 102 mmol/L (98-107); Cholesterol 192 mg/dL (<200); Estimated GFR 65.84 (mL/min/1.73m2); Glucose 90 mg/dL (74-106); HDL Cholesterol 82 mg/dL (40-60); Potassium 3.7 mmol/L (3.5-5.1); Sodium 139 mmol/L (136-145); TSH (W/Ref FT4) 1.31 uIU/mL (0.36-3.74); Total Protein 8.1 g/dL (6.4-8.2); Triglyceride 48 mg/dL (<150); Vitamin B12 728 pg/mL (193-986)
== END 2022-06-23 03:53 | disposition home or self-care (01) ==
LOC: LBO 03:52
PROVIDERS: PCP Student in an Organized Health Care Education/Training Program; Visit Provider Student in an Organized Health Care Education/Training Program
DX: D64.9 Anemia, unspecified (principal); I10 Essential (primary) hypertension; E46 Unspecified protein-calorie malnutrition; K58.9 Irritable bowel syndrome, unspecified; R26.89 Other abnormalities of gait and mobility; R53.83 Other fatigue; R49.0 Dysphonia; M81.0 Age-related osteoporosis without current pathological fracture; I65.22 Occlusion and stenosis of left carotid artery
CPT/HCPCS: 36415; 80053; 80061; 82306; 82607; 82746; 84443; 85018

== ENCOUNTER 2022-07-28 13:32 | Outpatient (REF) | payer MEDICARE, SELFPAY ==
[2022-07-28 13:51] LABS: Creatinine,Urine 88.53 mg/dL
[2022-07-28 13:58] LABS: Creatinine,24hr Ur 1.24 g/24hr (0.60-1.80); Total Volume 1400 ml
[2022-07-29 09:43] LABS: Calcium Urine 9.4 mg/dL (See Note); Calcium Urine 24 hr 132 mg/24hrs (100-300); Timed Urine Volume 1400 mL
== END 2022-07-28 13:33 | disposition home or self-care (01) ==
LOC: LBN 13:32
PROVIDERS: PCP Student in an Organized Health Care Education/Training Program; Visit Provider Internal Medicine Endocrinology, Diabetes & Metabolism
DX: M81.0 Age-related osteoporosis without current pathological fracture (principal)
CPT/HCPCS: 81050; 82340; 82570

== ENCOUNTER 2022-10-25 12:12 | Outpatient (CLI) | payer MEDICARE, MEDICAID, SELFPAY ==
--- NOTE | 2022-10-25 12:45 | DI.RAD_ITS ---
Exam(s) XR RIBS RT W PA LAT CHEST EXAM: XR RIBS RT W PA LAT CHEST CLINICAL HISTORY: eval bony path SOB R06.02 W19.XXXA FALL S20.219A CONTUSION WALL THORAX TECHNIQUE: 2D digital imaging was performed. COMPARISON: CR XR ABD FLAT UPRIGHT PA CHEST from 07/23/2018 FINDINGS: RIBS 3 VIEWS-right There fractures of the right 5th and 6th and 7th ribs, age indeterminate. No lung contusion or pneum othorax. No clavicle fracture. CXR- 2 VIEWS: No lung contusion or pneumothorax. There is no pleural effusion evident. Heart size is normal and there is no significant mediastinal widening. Tenting of the right hemidiaphragm is unchanged from 2018. IMPRESSION: 1. Fractures of the right 5th, 6th and 7th ribs, age indeterminate. These may not be acute. Correla tion with site of tenderness recommended. 2. No ipsilateral lung nor pleural abnormality evident. No pneumothorax. DATA REPOSITORY: RADIATION DOSE DELIVERED:
== END 2022-10-25 12:32 ==
PROVIDERS: PCP Student in an Organized Health Care Education/Training Program; Visit Provider Student in an Organized Health Care Education/Training Program
DX: R06.02 Shortness of breath (principal); S20.219A Contusion of unspecified front wall of thorax, initial encounter; S22.41XA Multiple fractures of ribs, right side, initial encounter for closed fracture; W19.XXXA Unspecified fall, initial encounter
CPT/HCPCS: 71046; 71100

== ENCOUNTER 2023-02-23 01:55 | Outpatient (CLI) | payer MEDICARE, MEDICAID, SELFPAY ==
--- NOTE | 2023-02-23 08:00 | DI.CTLCSR_ITS ---
Exam(s) CT CHEST LUNG CANCER SCREEN EXAM: CT CHEST LUNG CANCER SCREEN CLINICAL HISTORY: Screening for lung cancer,FORMER SMOKER, Z87.891 TECHNIQUE: Imaging Protocol: Axial computed tomography images with coronal and sagittal reformatted images were created and reviewed COMPARISON: CT HEAD AND CSPINE W/O CONTRAST from 09/27/[address] CHEST WO from 02/22/2022 FINDINGS: Tracheobronchial tree: Patent where visualized. Pulmonary parenchyma: No consolidation or dominant measurable mass. There is scarring in the left blade gula and right middle lobe. Lung Nodules: The 5 mm right perifissural nodule in the lower lobe is unchanged. There are no new pu lmonary nodules. Mediastinum and Buffy: No dominant adenopathy or fluid collection. The esophagus is unremarkable. Thyroid gland: There is a stable 1.2 cm nodule in the right thyroid gland. This is unchanged dating back to 2016. No follow-up is recommended. Lymph nodes: Unremarkable. Pleura: No effusion or pneumothorax. Heart: The heart is not dilated. Moderate coronary artery calcification is present. No pericardial e ffusion. Aorta: Thoracic aorta non-dilated.Atherosclerosis is present. Upper abdomen: There is a hiatal hernia present. Postsurgical changes are seen at the gastroesophag eal junction. There is fatty atrophy of the pancreas. Soft Tissues: Unremarkable. Bones: Within normal limits. Old healed right fracture deformities. There is a right convex thoracic scoliosis. IMPRESSION: Stable right pulmonary nodule. Lung RADS Cat 2 - Benign Appearance / Behavior: Nodules with a very low likelihood of becoming a clin ically active cancer due to size or lack of growth Lung-RADS 1.0 CATEGORIES: Category 0 - Prior chest CT exam(s) being located for comparison. Category 1 - Annual screening in 12 months. No nodules or definitely benign nodules. Category 2 - Annual screening in 12 months. Benign appearance. Nodules with low likelihood of becomin g active cancer. Category 3 - 6-month follow-up. Probably benign. Short-term follow-up suggested. Nodules with low lik elihood of becoming active cancer. Category 4A - 3-month follow-up and CT/PET if >8 mm in size. Suspicious finding. Findings which requi re additional testing. Category 4B - Findings which require additional testing and tissue sampling. Suspicious finding. Category 4X - Category 3 or 4 nodules with additional features or imaging findings that increases the suspicion of malignancy. Modifier S- Potentially clinically significant finding. (Non lung cancer) RADIATION DOSE DELIVERED: 71.64mGy.cm Total DLP 71.64mGy.cmTotal DLP DATA REPOSITORY: All CT scans at this facility are submitted to the National Radiology Data Registry (NRDR) Dose Index Registry (DIR) with the [employer] ([employer]). RADIATION OPTIMIZATION: All CT scans at this facility use at least one of these dose optimization te chniques: automated exposure control; mA and/or kV adjustment per patient size (includes targeted exa ms where dose is matched to clinical indication); or iterative reconstruction.
== END 2023-02-23 02:15 ==
LOC: DI 01:56
PROVIDERS: PCP Student in an Organized Health Care Education/Training Program; Visit Provider Student in an Organized Health Care Education/Training Program
DX: Z87.891 Personal history of nicotine dependence (principal); Z12.2 Encounter for screening for malignant neoplasm of respiratory organs; R91.1 Solitary pulmonary nodule
CPT/HCPCS: 71271

== ENCOUNTER 2023-05-05 13:36 | Outpatient (CLI) | payer MEDICARE, MEDICAID, SELFPAY ==
[2023-05-05 13:02] LABS: HCT 38.9 % (36.0-46.0); HGB 12.5 g/dL (11.2-15.7); MCH 29.6 pg (27.0-33.0); MCHC 32.1 % (32.0-36.0); MCV 92 fL (80-95); Platelet Count 267 10^3/uL (130-400); RBC 4.22 10^6/uL (3.93-5.22); RDW 13.5 % (11.7-14.6); WBC 5.32 10^3/uL (4.4-10.8)
[2023-05-05 14:01] LABS: ALT 18 U/L (14-59); AST 17 U/L (15-37); Albumin 3.7 g/dL (3.4-5.0); Alkaline Phosphatase 81 U/L (46-116); Anion Gap 7.4 mmol/L (3-11); BUN 20 mg/dL (7-18); CO2 29.6 mmol/L (21.0-32.0); CREATININE 0.9 mg/dL (0.55-1.02); Calcium 9.4 mg/dL (8.5-10.1); Calculated LDL 95 mg/dL (<100); Chloride 104 mmol/L (98-107); Cholesterol 183 mg/dL (<200); Estimated GFR 65.44 (mL/min/1.73m2); Folate 16.9 ng/mL (8.6-20.0); Glucose 92 mg/dL (74-106); HDL Cholesterol 79 mg/dL (40-60); Magnesium 2.2 mg/dL (1.8-2.4); Potassium 3.6 mmol/L (3.5-5.1); Sodium 141 mmol/L (136-145); Total Protein 7.4 g/dL (6.4-8.2); Triglyceride 48 mg/dL (<150)
[2023-05-05 14:06] LABS: Vitamin D 25 Total 51.7 ng/mL (30-100)
[2023-05-05 14:26] LABS: Bilirubin, Total 0.5 mg/dL (0.2-1.0); C-Reactive Protein 0.14 mg/dL (0.0-0.3)
== END 2023-05-05 13:37 | disposition home or self-care (01) ==
LOC: LBO 13:37
PROVIDERS: PCP Student in an Organized Health Care Education/Training Program; Visit Provider Student in an Organized Health Care Education/Training Program
DX: M81.0 Age-related osteoporosis without current pathological fracture (principal); G57.83 Other specified mononeuropathies of bilateral lower limbs; M79.661 Pain in right lower leg; M79.662 Pain in left lower leg
CPT/HCPCS: 36415; 80053; 80061; 82306; 85027; 82746; 83735; 86140

== ENCOUNTER → 2023-07-06 02:09 | Outpatient (CLI) | payer MEDICARE, MEDICAID, SELFPAY ==
--- NOTE | 2023-07-06 08:30 | DI.MRI_ITS ---
Exam(s) MR PELVIS WO EXAM: MR PELVIS WO CLINICAL HISTORY: eval rad lumbar -to-groin pain; iliopsoas path?, strain, bursitis, mass TECHNIQUE: Multiplanar multisequence MRI of Pelvis was performed COMPARISON: No exams were available for comparison FINDINGS: OSSEOUS/ARTICULATIONS: No evidence of hip fractures nor avascular necrosis. Mild symmetrical degenerative changes in the hi ps. No obvious labral tears nor paralabral cysts. No hip joint effusions. There is a healed fracture of the inferior left pubic ramus. No acute pelvic fractures identified. No obvious signal abnormality related to the sacroiliac joints. No evidence of sacral insufficiency fractures and no ominous osseous lesions identified. No abnormal signal in the symphysis pubis. MUSCULOTENDINOUS: No significant muscular asymmetry. No evidence of intramuscular hematoma nor asymmetric atrophy nor denervation signal in the musculature. Intra pelvic musculature appears unremarkable. There is no a bnormal signal at the level of the ischial tuberosities-hamstring insertion sites. Other: There is extensive sigmoid diverticulosis noted. There are no aneurysms of the iliac vessels. Uterus and adnexal regions appear age-appropriate. No obvious abnormality in the urinary bladder. So S and ileo psoas muscles appear unremarkable. No evidence of iliopsoas bursitis. IMPRESSION: No significant osseous findings. Extensive sigmoid diverticulosis noted. No obvious acute diverticulitis. See separate lumbar spine MRI dictation. DATA REPOSITORY:
--- NOTE | 2023-07-06 08:30 | DI.MRI_ITS ---
Exam(s) MR LUMBAR SPINE WO EXAM: MR LUMBAR SPINE WO CLINICAL HISTORY: eval rad [id number]-lc-[id number] pain; iliopsoas path?, strain, bursitis, scoliosis. TECHNIQUE: Multiplanar multisequence MRI of the Lumbar spine was performed. COMPARISON: Plain films of 02/25/2022 reviewed. FINDINGS: There is a scoliosis convex left, as evident on prior plain films Conus medullaris is at normal level. There is no evidence of conus mass nor subjacent clumping of in trathecal nerve roots to suggest arachnoiditis. The distal thecal sac appears unremarkable.There is no evidence of Tarlov intrasacral cysts nor other significant findings within the sacral canal Bones:There are no acute nor subacute appearing fractures nor ominous osseous lesions in the lumbar v ertebral bodies. Chronic appearing mild compression fracture of T11 noted with additional Schmorl's node invagination of the superior endplate at this level. No bone edema in the T11 vertebra. With respect to the individual levels... T12-L1: Unremarkable L1-2: Normal disc height and signal. No disc herniation nor central canal stenosis.No foraminal steno sis. No prominent facet arthropathy. L2-3: There is some asymmetric disc space narrowing on the right side of this disc space, this contri buting to the scoliosis. There is annular bulging in the floor of the bilateral exiting neural raina en, without a dominant disc herniation. There is mild central spinal canal stenosis at this level du e to short AP dimensions of the pedicles. No prominent facet arthropathy and there is no significant foraminal stenosis evident at this level. L3-4: This level also exhibits asymmetric narrowing of the right-side of the disc space contributing to the scoliosis. There is some annular bulging at this level slightly more so left than right side but no prominent disc herniation. Central canal dimensions are lower normal. There is mild bilatera l foraminal stenosis at this level. Moderate facet joint degenerative changes bilaterally. L4-5: This level exhibits moderate disc space narrowing and anterolisthesis L4 upon L5 related to fac et arthropathy. There is 1.2 cm anterior slippage of L4 upon L5, not associated with Modic type 1 membreno b endplate marrow edema changes. There are severe facet joint degenerative changes at this level cau sing the listhesis. This results in severe central spinal canal stenosis at this level. In addition , the lateral recesses are carried forward by the slippage. However, there is no prominent foraminal stenosis. There is mild impingement of the exiting right nerve root between the pseudo herniation o f the annulus and the overlying pedicle of L4. Lesser amount of impingement seen on the opposite-amador e L5-S1: This level exhibits moderate disc space narrowing and mild degenerative anterolisthesis of L5 upon S1, with approximately 0.6 cm anterior slippage, this related to facet arthropathy at this level . There are no obvious pars defects at L5 evident. There is pseudo herniation of the annulus but no distinct disc herniation. Central canal dimensions are lower normal. There is no significant raina inal stenosis at this level. Soft tissues: paraspinal soft tissues appear unremarkable. IMPRESSION: 1. There is degenerative scoliosis convex left which is related to asymmetric disc space narrowing on the right side at L2-3 and L3-4 levels. 2. There are no significant focal disc herniations. 3. Most significant level appears to be L4-5 where there is significant anterolisthesis of L4 upon L5 related to advanced degenerative changes in the facet joints and resulting in severe central spinal canal stenosis at this level. There is only mild foraminal stenosis at this level. There is 1.2 cm anterior slippage of L4 upon L5 evident at this level with the patient in the supine position for thi s scan. 4. Milder degenerative anterolisthesis of L5 upon S1 is noted but without significant central spinal canal stenosis nor significant foraminal stenosis evident at this level. 5. Chronic appearing mild superior endplate compression fracture at T11 noted. No fractures evident within the lumbar vertebral bodies and no significant osseous lesions. DATA REPOSITORY:
== END ==
PROVIDERS: PCP Student in an Organized Health Care Education/Training Program; Visit Provider Student in an Organized Health Care Education/Training Program
DX: M41.86 Other forms of scoliosis, lumbar region (principal); M43.16 Spondylolisthesis, lumbar region; S22.080A Wedge compression fracture of T11-T12 vertebra, initial encounter for closed fracture; K57.30 Diverticulosis of large intestine without perforation or abscess without bleeding; M70.71 Other bursitis of hip, right hip; M70.72 Other bursitis of hip, left hip
CPT/HCPCS: 72148; 72195

== ENCOUNTER → 2023-10-06 15:45 | Outpatient (CLI) | payer MEDICARE, MEDICAID, SELFPAY ==
--- NOTE | 2023-10-06 16:15 | DI.RAD_ITS ---
Exam(s) XR RIBS LT W PA LAT CHEST EXAM: XR RIBS LT W PA LAT CHEST CLINICAL HISTORY: eval ribs and cxr 2' fall W19.XXXA TECHNIQUE: 2D digital imaging was performed. Six images are obtained. COMPARISON: CR XR RIBS RT W PA LAT CHEST from 10/25/2022 FINDINGS: MEDIASTINUM: Normal. HEART: Normal. PULMONARY VASCULATURE: Normal. LUNGS: Clear. PLEURAL SPACE: No pleural effusion or pneumothorax. BONE:Within normal limits for the patient's age. There is again seen an S-type thoracolumbar scolios is. LEFT RIBS: Normal. OTHER FINDINGS:Normal. IMPRESSION: 1. No acute pulmonary findings. 2. Unremarkable left ribs. DATA REPOSITORY: RADIATION DOSE DELIVERED:
== END ==
PROVIDERS: PCP Student in an Organized Health Care Education/Training Program; Visit Provider Student in an Organized Health Care Education/Training Program
DX: W19.XXXA Unspecified fall, initial encounter (principal); R07.9 Chest pain, unspecified
CPT/HCPCS: 71046; 71100

== ENCOUNTER → 2023-11-14 12:38 | Outpatient (CLI) | payer MEDICARE, MEDICAID, SELFPAY ==
--- NOTE | 2023-11-14 11:15 | DI.US_ITS ---
Exam(s) US LOWER EXTREMITY VENOUS LT EXAM: US LOWER EXTREMITY VENOUS LT CLINICAL HISTORY: left leg swelling, tender to palp, new, lt foot pain, R60.9, edema, M79.672 TECHNIQUE: Left lower extremity venous ultrasound performed using grayscale, color-flow, and spectra l Doppler analysis. COMPARISON: No exams were available for comparison FINDINGS: The left common femoral, femoral and popliteal veins demonstrate normal compressibility, augmentation , and color Doppler. The posterior tibial veins are patent. The saphenofemoral junction is unremarka ble. There is no evidence of a Freeman cyst. The soft tissues are unremarkable. IMPRESSION: No evidence of a left lower extremity DVT. DATA REPOSITORY:
--- NOTE | 2023-11-14 12:31 | DI.RAD_ITS ---
Exam(s) XR FOOT LT COMPLETE EXAM: XR FOOT LT COMPLETE CLINICAL HISTORY: neuroma? on sole of left foot, pain, hx neuroma, M79.672, Z86.018. TECHNIQUE: 2D digital imaging was performed of the left foot. Three images were obtained. AP, obli que and lateral views were obtained. COMPARISON: CR XR FOOT LT LIMITED from 03/07/2022 FINDINGS: BONES: No acute fracture is present. No bony destructive lesion is seen. There is a small plantar don caneal spur. JOINTS: No dislocation present. At the 1st MTP joint there is ueyf-xu-rnccueff joint space narrowing present. There also are osteophytes at the head of the 1st metatarsal bone. SOFT TISSUE: Normal. IMPRESSION: Degenerative changes of the 1st MTP joint. If there is concern for a neuroma, an MRI should be consi dered for further evaluation. DATA REPOSITORY: RADIATION DOSE DELIVERED:
== END ==
PROVIDERS: PCP Student in an Organized Health Care Education/Training Program; Visit Provider Student in an Organized Health Care Education/Training Program
DX: R60.9 Edema, unspecified (principal); M79.672 Pain in left foot; Z86.018 Personal history of other benign neoplasm; M19.072 Primary osteoarthritis, left ankle and foot
CPT/HCPCS: 73630; 93971

== ENCOUNTER 2023-11-15 12:30 | Outpatient (CLI) | payer MEDICARE, MEDICAID, SELFPAY ==
--- NOTE | 2023-11-15 06:00 | DI.RAD_ITS ---
Exam(s) XR PAIN CLINIC SACRIOILIAC 2V EXAM: XR PAIN CLINIC SACRIOILIAC 2V CLINICAL HISTORY: DX: Sacroiliac dysfunction TECHNIQUE: 2D and realtime digital imaging was performed. CONTRAST MATERIAL: Refer to procedure report. COMPARISON: No exams were available for comparison FINDINGS: Fluoroscopy was provided for Dr. Pérez during the performance of a bilateral sacroiliac joint injecti ons. Please refer to the procedure report for complete details. Ka,r=4.6 mGy IMPRESSION:
[2023-11-15 12:47] VITALS: BP 171/82; PULSE 81; RESP 20; TEMP 36.7; O2SAT 96
--- NOTE | 2023-11-15 13:26 | PDOC.PAIN_ITS ---
Date of service: 11/15/23 Time of Service: 13:26 Pain Managment Procedure Note Procedure Note Procedure Note: PROCEDURE NOTE BILATERAL INTRA-ARTICULAR SACROILIAC JOINT INJECTION Date of Service: November 15, 2023 Patient: Agata Miles V Provider: Ari Pérez DO, MPH COMMENTS: I previously evaluated the patient in the office and their symptoms in relation to the sacroiliac joint pain have remained the same. Pre-operative diagnosis: Sacroiliac joint dysfunction Post-operative diagnosis: Same Pre-procedure pain: VAS= 5/10 Agata Miles has been referred to our [facility] for a Bilateral intra-articular Sacroiliac joint injection. Agata was interviewed and the medical record reviewed. There were no medical, pharmacologic, radiographic or other structural contraindications to attempting a fluoroscopically-guided, contrast-enhanced, intra-articular Sacroiliac joint injection. The risks, benefits, and potential side effects of this procedure were reviewed with the patient. Questions and concerns were addressed. After it was clear that Agata was fully informed about the procedure, the printed consent form was signed by the patient and myself. Agata was placed in the prone position on the fluoroscopy table and an automated blood pressure cuff, 3 lead EKG, and pulse oximeter were applied. The skin entry point for approaching the Right sacroiliac joint was identified under the most advantageous fluoroscopic view and marked. Following thorough Chlorhexadine preparation of the skin and draping with sterile surgical drapes, 2 mls of 1% lidocaine was infiltrated into the skin at the entry point and the surrounding subcutaneous tissues. Next, a 3.5 22G spinal needle was placed under fluoroscopic guidance into the Right sacroiliac joint. Intra-articular placement was confirmed by a clear arthrogram resulting from the injection of 0.25ml of Omnipaque-240. Next, 1 ml of Depo- Medrol 40 mg/ml was injected intra-articularly with an initial reproduction of a significant component of the usual pain. This was followed with 1 ml of 1% Lidocaine. The needle was then removed without difficulty. (49 ml of Omnipaque-240 was wasted). The exact procedure was completed on the opposite sacroiliac joint. Agata's vital signs were stable throughout the procedure and were as recorded in nursing records. Follow up plans and appointments were discussed with Agata. Post procedure instructions were given as documented in nursing records. Having met discharge criteria, Agata was [facility] from the [facility]. COMMENTS: Post-procedure pain: VAS= 0.5/10. If the patient receives at least 50% improvement in pain and/or function for at least 3 months, this procedure can be repeated if needed. I personally performed this entire procedure. ARI PÉREZ DO, MPH ABPMR-subspecialty board certification in Pain Medicine [facility]
[2023-11-15 13:29] VITALS: BP 167/76; PULSE 74; RESP 16; O2SAT 100
[2023-11-15] MEDS: Nerve Block Tray 1 EACH MC (13:30)
[2023-11-15] MEDS: Omnipaque 240 MG/ML 50 ML BTL IJ (13:31)
[2023-11-15] MEDS: methylPREDNISolone ACETATE 40 MG/ML VIAL IJ (13:31)
== END 2023-11-15 12:31 | disposition home or self-care (01) ==
LOC: PC 12:30
PROVIDERS: PCP Student in an Organized Health Care Education/Training Program; Visit Provider Preventive Medicine Occupational Medicine
DX: M54.50 Low back pain, unspecified (principal); M46.1 Sacroiliitis, not elsewhere classified
CPT/HCPCS: 123; 27096; 72200; 00123; J1030; Q9967

== ENCOUNTER → 2024-01-09 14:25 | Outpatient (CLI) | payer MEDICARE, MEDICAID, SELFPAY ==
--- NOTE | 2024-01-09 13:45 | DI.RAD_ITS ---
Exam(s) XR FOOT LT COMPLETE EXAM: XR FOOT LT COMPLETE CLINICAL HISTORY: eval swelling; r/o Fx or chip. TECHNIQUE: 2D digital imaging was performed. Three views. COMPARISON: CR XR FOOT LT LIMITED from 03/07/2022 CR XR FOOT LT COMPLETE from 11/14/2023 FINDINGS: BONES: Fractures through the central portions of both sesamoid bones of the 1st metatarsal head. Not present previously. No bony destructive lesion is seen. Tiny plantar calcaneal spur. JOINTS: No dislocation present. Mild degenerative changes at the 1st MTP joint. SOFT TISSUE: Swelling dorsally and around the 1st metatarsal. IMPRESSION: Fractures of both sesamoids of the 1st metatarsal head. DATA REPOSITORY: RADIATION DOSE DELIVERED:
== END ==
PROVIDERS: PCP Student in an Organized Health Care Education/Training Program; Visit Provider Student in an Organized Health Care Education/Training Program
DX: W19.XXXA Unspecified fall, initial encounter (principal); S90.32XA Contusion of left foot, initial encounter; S90.122A Contusion of left lesser toe(s) without damage to nail, initial encounter; S92.312A Displaced fracture of first metatarsal bone, left foot, initial encounter for closed fracture; S93.692A Other sprain of left foot, initial encounter
CPT/HCPCS: 73630

== ENCOUNTER → 2024-01-24 02:21 | Outpatient (CLI) | payer MEDICARE, MEDICAID, SELFPAY ==
--- NOTE | 2024-01-24 08:54 | DI.RAD_ITS ---
Exam(s) XR FOOT LT COMPLETE EXAM: XR FOOT LT COMPLETE CLINICAL HISTORY: Evaluate for healing,closed fx sesamoid bone,s92.205k. TECHNIQUE: 2D digital imaging was performed of the left foot. Three images were obtained. AP, obli que and lateral views were obtained. COMPARISON: CR XR FOOT LT COMPLETE from 11/14/2023 CR XR FOOT LT COMPLETE from 01/09/2024 FINDINGS: BONES: There has been no change in alignment of the fractures through both sesamoid bones. There is a small plantar calcaneal spur. No bony destructive lesion is seen. JOINTS: No dislocation present. SOFT TISSUE: Normal. IMPRESSION: Stable alignment of the fractures to both sesamoid bones. No significant bridging callus formation i s seen. DATA REPOSITORY: RADIATION DOSE DELIVERED:
== END ==
PROVIDERS: PCP Student in an Organized Health Care Education/Training Program; Visit Provider Podiatrist
DX: S92.812A Other fracture of left foot, initial encounter for closed fracture (principal); X58.XXXA Exposure to other specified factors, initial encounter
CPT/HCPCS: 73630

== ENCOUNTER → 2024-02-14 03:07 | Outpatient (CLI) | payer MEDICARE, MEDICAID, SELFPAY ==
--- NOTE | 2024-02-14 09:11 | DI.RAD_ITS ---
Exam(s) XR FOOT LT COMPLETE EXAM: XR FOOT LT COMPLETE CLINICAL HISTORY: Serial images for consolidation,closed fx sesamoid bone lt foot,s92.296c. TECHNIQUE: 2D digital imaging was performed of the left foot. Three images were obtained. AP, obli que and lateral views were obtained. COMPARISON: CR XR FOOT LT COMPLETE from 11/14/2023 CR XR FOOT LT COMPLETE from 01/24/2024 FINDINGS: BONES: There again seen sesamoid bone fractures. The medial sesamoid bone is stable in alignment. T he lateral sesamoid now shows 4 mm of distraction compared to 2.8 mm on the prior examination. No ольга ny destructive lesion is seen. There is a small plantar calcaneal spur. JOINTS: No dislocation present. Mild degenerative changes are seen at the 1st MTP joint characterized by joint space narrowing and small osteophytes. SOFT TISSUE: Normal. IMPRESSION: Sesamoid fractures with mild increased distraction of the lateral sesamoid fracture. DATA REPOSITORY: RADIATION DOSE DELIVERED:
== END ==
PROVIDERS: PCP Student in an Organized Health Care Education/Training Program; Visit Provider Podiatrist
DX: S92.812A Other fracture of left foot, initial encounter for closed fracture (principal); X58.XXXA Exposure to other specified factors, initial encounter
CPT/HCPCS: 73630

== ENCOUNTER → 2024-03-05 01:56 | Outpatient (CLI) | payer MEDICARE, MEDICAID, SELFPAY ==
--- NOTE | 2024-03-05 07:30 | DI.US_ITS ---
Exam(s) US CAROTID EXAM: US CAROTID CLINICAL HISTORY: EVAL STENOSIS, LT CAROTID STENOSIS, CLAUDICATION, PAD, HX ASCVD, I65.22,. TECHNIQUE: Ultrasound carotids performed using grayscale, color-flow, and spectral Doppler imaging. COMPARISON: US US AAA SCREENING from 03/05/2024 FINDINGS: CAROTID ARTERIES: There is some plaque at the level the carotid bulbs and proximal internal carotid a rteries bilaterally. There are no significant elevated velocities on the right side implying that th e amount stenosis is less than 50 percent. On the left side there is significantly elevated velocities in the proximal left ICA with peak systol ic velocity of 351 cm/sec and end-diastolic velocity of 104 cm/sec. This implies severe stenosis gre ater than 70 percent of the vessel lumen. VERTEBRAL ARTERIES: Antegrade flow is demonstrated in both vertebral arteries. Measurements: R Bulb: 66.6cm/s PS / 19.6cm/s ED R CCA: 84.1cm/s PS / 23.2cm/s ED R ECA: 68.7cm/s PS / 5.4cm/s ED R ICA Prox: 102.5cm/s PS / 34.7cm/s ED R ICA Mid: 108.3cm/s PS / 37.9cm/s ED R ICA Distal: 90.1cm/s PS /31.2cm/s ED R Vert: 49.4cm/s PS / 13.6cm/s ED R SVR: 1.3 R DVR: 1.6 L Bulb: 73.4cm/s PS / 22.5cm/s ED L CCA: 59cm/s PS / 11.9cm/s ED L ECA: 168.7cm/s PS / 0cm/s ED L ICA Prox: 351.3cm/s PS / 104.3cm/s ED L ICA Mid: 62.4cm/s PS / 17cm/s ED L ICA Distal: 63.2cm/s PS / 24.6cm/s ED L Vert: 47.1cm/s PS / 13cm/s ED L SVR: 6 L DVR: 8.8 IMPRESSION: There is bilateral plaque as described above with significantly elevated velocities on the left side consistent with severe stenosis in the proximal left ICA greater than 70 percent. Less plaque on the opposite side implies stenosis less than 50 percent. Antegrade flow is demonstrated in both vertebral arteries. Criteria for Carotid Stenosis: Normal: ICA PSV <125 cm/s no plaque or intimal thickening is visible. <50% stenosis: ICA PSV <125 cm/s and plaque or intimal thickening is visible. 50-69% stenosis: ICA PSV is 125-250 cm/s and plaque is visible. >70% stenosis to near occlusion: ICA PSV >250 cm/s with visible plaque and luminal narrowing. DATA REPOSITORY:
--- NOTE | 2024-03-05 07:30 | DI.US_ITS ---
Exam(s) US AAA SCREENING EXAM: US AAA SCREENING CLINICAL HISTORY: EVAL ANEURYSM, CLAUDICATION, PAD, HX ASCVD, SYNCOPE COMPARISON: No exams were available for comparison FINDINGS: There is no evidence of abdominal aortic aneurysm. Maximum diameter of the abdominal aorta is 2 cm, proximally. There is normal tapering distally. The common iliac arteries exhibit upper normal size measuring 0.9 cm bilaterally. IMPRESSION: No evidence of abdominal aortic aneurysm. Also no aneurysmal dilatation of the visualized common iliac arteries. DATA REPOSITORY:
== END ==
PROVIDERS: PCP Student in an Organized Health Care Education/Training Program; Visit Provider Student in an Organized Health Care Education/Training Program
DX: I65.22 Occlusion and stenosis of left carotid artery (principal); I73.9 Peripheral vascular disease, unspecified; Z86.79 Personal history of other diseases of the circulatory system; R55 Syncope and collapse
CPT/HCPCS: 76706; 93880

== ENCOUNTER → 2024-03-07 03:35 | Outpatient (CLI) | payer MEDICARE, MEDICAID, SELFPAY ==
--- NOTE | 2024-03-07 10:58 | DI.RAD_ITS ---
Exam(s) XR FOOT LT COMPLETE EXAM: XR FOOT LT COMPLETE CLINICAL HISTORY: Monitor healing, CLOSTD FRACTURE SESAMOID BONE LT FOOT, S92.485O. TECHNIQUE: 2D digital imaging was performed. COMPARISON: CR XR FOOT LT COMPLETE from 02/14/2024 FINDINGS: 3 views Again noted are the previously described sesamoid bone fractures subjacent to the great toe metatarsa l head. There appearance and location are unchanged from images of 02/14/2024. No other fractures nor diastasis of the Lisfranc joint. Moderate degenerative changes in the great t oe metatarsophalangeal joint are again noted. IMPRESSION: Appearance unchanged from 02/14/2024. DATA REPOSITORY: RADIATION DOSE DELIVERED:
== END ==
PROVIDERS: PCP Student in an Organized Health Care Education/Training Program; Visit Provider Podiatrist
DX: S92.812A Other fracture of left foot, initial encounter for closed fracture (principal); X58.XXXA Exposure to other specified factors, initial encounter
CPT/HCPCS: 73630

== ENCOUNTER → 2024-04-24 01:18 | Outpatient (CLI) | payer MEDICARE, MEDICAID, SELFPAY ==
--- NOTE | 2024-04-24 10:13 | DI.RAD_ITS ---
Exam(s) XR FOOT LT COMPLETE EXAM: XR FOOT LT COMPLETE CLINICAL HISTORY: Closed fx of sesamoid bone of lt foot, S92.812A,. TECHNIQUE: 2D digital imaging was performed of the left foot. Three images were obtained. AP, obli que and lateral views were obtained. COMPARISON: CR XR FOOT LT COMPLETE from 03/07/2024 FINDINGS: BONES: There has been no change in alignment of the medial and lateral sesamoids adjacent to the head of the 1st metatarsal bone. No new fractures are seen. There is a small plantar calcaneal spur. N o bony destructive lesion is seen. JOINTS: No dislocation present. Joint space narrowing is again seen at the 1st MTP joint. SOFT TISSUE: Normal. IMPRESSION: Stable appearance of the sesamoids. DATA REPOSITORY: RADIATION DOSE DELIVERED:
== END ==
PROVIDERS: PCP Student in an Organized Health Care Education/Training Program; Visit Provider Podiatrist
DX: S92.812A Other fracture of left foot, initial encounter for closed fracture (principal)
CPT/HCPCS: 73630

== ENCOUNTER 2024-05-27 02:20 | Outpatient (CLI) | payer MEDICARE, MEDICAID, SELFPAY ==
--- NOTE | 2024-05-27 07:00 | DI.MRI_ITS ---
Exam(s) MR BRAIN WO/W EXAM: MR BRAIN WO/W CLINICAL HISTORY: eval vasculature,? mass,headache,dizziness,h/o stroke,g44.309 TECHNIQUE: Multiplanar multisequence MRI of the brain was performed. Both noninfused and contrast i nfused sequences were performed. IV Contrast injected was 14 cc Dotarem. COMPARISON: CT HEAD AND CSPINE W/O CONTRAST from 09/27/2017 FINDINGS: CEREBRAL PARENCHYMA: No evidence of intracranial hemorrhage, mass effect nor shift of midline structu re. No extraaxial fluid collections. Ventricles are not enlarged nor shifted. There is no significant focal signal abnormality in the cerebellar hemispheres nor within the vannessa, m idbrain, and thalami. There are multiple small FLAIR bright foci of white matter signal abnormality not associated hemorrha ge, surrounding edema, enhancement, nor restricted diffusion, and consistent with chronic small vesse l ischemic changes. DWI: No areas of restricted diffusion to suggest acute ischemic event. SWI: No microhemorrhages evident. There are no ring enhancing lesions in the brain. There is no abnormal meningeal enhancement. PITUITARY GLAND: No mass nor parasellar abnormality. No obvious abnormality in the cavernous sinuses. FLOW VOIDS: The expected flow void are noted. No evidence of obvious aneurysm nor obvious vascular ma lformation. No evidence of venous sinus thrombosis. PARANASAL SINUSES: The visualized paranasal sinuses appear unremarkable. ORBITS: No obvious abnormal findings. IMPRESSION: 1. Multiple small FLAIR bright foci of white matter signal abnormality noted which are consistent wit h chronic small vessel ischemic changes. There is no evidence of restricted diffusion to suggest acu te infarct. 2. No abnormal enhancing intracranial findings. There are no ring enhancing lesions in the brain and there is no abnormal meningeal enhancement. DATA REPOSITORY:
[2024-05-27] MEDS: Normal Saline Flush 10 ML SYR IVP (10:22)
[2024-05-27] MEDS: Gadoterate meglumine 20 ML SYRINGE 14 ML IVP (10:26)
== END 2024-05-27 02:40 ==
LOC: DI 02:20
PROVIDERS: PCP Student in an Organized Health Care Education/Training Program; Visit Provider Student in an Organized Health Care Education/Training Program
DX: Z86.73 Personal history of transient ischemic attack (TIA), and cerebral infarction without residual deficits; I63.81 Other cerebral infarction due to occlusion or stenosis of small artery
CPT/HCPCS: 70553

== ENCOUNTER → 2024-06-06 09:00 | Outpatient (BNVA) | payer MEDICARE, MEDICAID, SELFPAY | PROVIDERS: PCP Student in an Organized Health Care Education/Training Program; Referring Provider Student in an Organized Health Care Education/Training Program; Visit Provider Podiatrist | DX: S92.812K Other fracture of left foot, subsequent encounter for fracture with nonunion (principal); L97.511 Non-pressure chronic ulcer of other part of right foot limited to breakdown of skin; M77.42 Metatarsalgia, left foot; M67.02 Short Achilles tendon (acquired), left ankle; X58.XXXD Exposure to other specified factors, subsequent encounter | CPT/HCPCS: 97597 ==

== ENCOUNTER 2024-06-19 03:02 | Outpatient (CLI) | payer MEDICARE, MEDICAID, SELFPAY ==
[2024-06-19 09:35] LABS: ALT 20 U/L (14-59); AST 16 U/L (15-37); Albumin 3.7 g/dL (3.4-5.0); Alkaline Phosphatase 75 U/L (46-116); Anion Gap 7.8 mmol/L (3-11); BUN 19 mg/dL (7-18); Bilirubin, Direct 0.1 mg/dL (0.0-0.2); CO2 28.2 mmol/L (21.0-32.0); CREATININE 0.9 mg/dL (0.55-1.02); Calcium 9.2 mg/dL (8.5-10.1); Chloride 101 mmol/L (98-107); Estimated GFR 65.03 (mL/min/1.73m2); Glucose 89 mg/dL (74-106); Potassium 3.7 mmol/L (3.5-5.1); Sodium 137 mmol/L (136-145); Total Protein 7.6 g/dL (6.4-8.2)
[2024-06-19 09:51] LABS: Folate > 20.0 ng/mL (8.6-20.0)
[2024-06-19 10:14] LABS: Magnesium 2.2 mg/dL (1.8-2.4); Vitamin B12 885 pg/mL (193-986); Vitamin D 25 Total 60.1 ng/mL (30-100)
== END 2024-06-19 03:03 | disposition home or self-care (01) ==
LOC: LBO 03:02
PROVIDERS: PCP Student in an Organized Health Care Education/Training Program; Visit Provider Student in an Organized Health Care Education/Training Program
DX: I10 Essential (primary) hypertension (principal); Z91.89 Other specified personal risk factors, not elsewhere classified; K90.9 Intestinal malabsorption, unspecified; R53.83 Other fatigue; R26.89 Other abnormalities of gait and mobility; R53.81 Other malaise
CPT/HCPCS: 36415; 80048; 80076; 82306; 82607; 82746; 83735

== ENCOUNTER → 2024-07-09 10:48 | Outpatient (BNVA) | payer MEDICARE, MEDICAID, SELFPAY | PROVIDERS: PCP Student in an Organized Health Care Education/Training Program; Referring Provider Student in an Organized Health Care Education/Training Program; Visit Provider Podiatrist | DX: S92.812K Other fracture of left foot, subsequent encounter for fracture with nonunion (principal); L97.511 Non-pressure chronic ulcer of other part of right foot limited to breakdown of skin; M67.02 Short Achilles tendon (acquired), left ankle; G57.61 Lesion of plantar nerve, right lower limb; G56.81 Other specified mononeuropathies of right upper limb | CPT/HCPCS: 29540; 93922 ==

== ENCOUNTER 2024-07-26 00:12 | Outpatient (CLI) | payer MEDICARE, MEDICAID, SELFPAY ==
--- NOTE | 2024-07-26 06:45 | DI.MRI_ITS ---
Exam(s) MR LOWER EXTREMITY RT WO EXAM: MR LOWER EXTREMITY RT WO CLINICAL HISTORY: Neuroma vs bursa vs arthritis right 2-4 mpj,g57.61,g57.81 TECHNIQUE: Multiplanar multisequence MRI was performed. Field of view was the mid and forefoot. COMPARISON: CR XR FOOT LT COMPLETE from 11/14/2023 CR XR FOOT LT COMPLETE from 01/09/2024 CR XR FOOT LT COMPLETE from 01/24/2024 CR XR FOOT LT COMPLETE from 02/14/2024 CR XR FOOT LT COMPLETE from 03/07/2024 CR XR FOOT LT COMPLETE from 04/24/2024 There are no plain films of the RIGHT foot available time of this MRI interpretation. FINDINGS: MARROW:There is no evidence of fracture, bone contusion, nor avascular necrosis. There are no signif icant osseous lesions. No signal abnormality to suggest osteomyelitis. ARTICULATIONS: There is significant degenerative change at the great toe metatarsophalangeal joint as well as hallux valgus. There is advanced disc space narrowing and cartilage loss and marginal osteo phytes at this articulation. Minimal amount of increased joint fluid. There is no intraosseous sign al abnormality in the subjacent hallucal sesamoid bones. Lisfranc joint ligament appears unremarkable. There are some degenerative changes in the 2nd and 3rd tarsometatarsal joints with subarticular degenerative cysts. There are small joint effusions in the 2nd, 3rd, 4th, and 5th metatarsophalangeal joints. Only minim al degenerative changes at these levels. No bone edema nor degenerative subarticular cysts. There are flexion hammertoe deformities of the 2nd, 3rd, and 4th toes. MUSCLES: There is no evidence of abnormal signal nor mass in the visualized muscles. EXTRAMUSCULAR SOFT TISSUES: There is a soft tissue teardrop shaped mass on the plantar side of the in termetatarsal ligament between the heads of the 2nd and 3rd metatarsals, projecting inferiorly into t he plantar subcutaneous fat. This mass measures 1 cm craniocaudal by 8 millimeters at widest. OTHER: None. IMPRESSION: 1. 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 2. There are advanced degenerative changes in the great toe metatarsophalangeal joint as well as [place] of hallux valgus. 3. There are some degenerative changes in the 2nd and 3rd tarsometatarsal joints. 4. There is small joint effusions in the 2nd, 3rd, 4th, and 5th metatarsophalangeal joints. No guerita cent bone edema at these articulations. 5. Hammertoe deformities of 2nd, 3rd, and 4th toes are evident DATA REPOSITORY:
== END 2024-07-26 00:32 ==
LOC: DI 00:12
PROVIDERS: PCP Student in an Organized Health Care Education/Training Program; Visit Provider Podiatrist
DX: G57.61 Lesion of plantar nerve, right lower limb (principal); G57.81 Other specified mononeuropathies of right lower limb
CPT/HCPCS: 73718

== ENCOUNTER → 2024-07-31 12:59 | Outpatient (BNVA) | payer MEDICARE, MEDICAID, SELFPAY | PROVIDERS: PCP Student in an Organized Health Care Education/Training Program; Referring Provider Student in an Organized Health Care Education/Training Program; Visit Provider Podiatrist | DX: G57.61 Lesion of plantar nerve, right lower limb (principal); G57.81 Other specified mononeuropathies of right lower limb; S92.812K Other fracture of left foot, subsequent encounter for fracture with nonunion; L97.511 Non-pressure chronic ulcer of other part of right foot limited to breakdown of skin; M67.02 Short Achilles tendon (acquired), left ankle; X58.XXXD Exposure to other specified factors, subsequent encounter | CPT/HCPCS: 29540; 64455; J0702; J1100 ==

== ENCOUNTER → 2024-08-21 14:16 | Outpatient (BNVA) | payer MEDICARE, MEDICAID, SELFPAY | PROVIDERS: PCP Student in an Organized Health Care Education/Training Program; Referring Provider Student in an Organized Health Care Education/Training Program; Visit Provider Podiatrist | DX: S92.812K Other fracture of left foot, subsequent encounter for fracture with nonunion (principal); X58.XXXD Exposure to other specified factors, subsequent encounter; L97.511 Non-pressure chronic ulcer of other part of right foot limited to breakdown of skin; M67.02 Short Achilles tendon (acquired), left ankle; G57.61 Lesion of plantar nerve, right lower limb; G57.81 Other specified mononeuropathies of right lower limb | CPT/HCPCS: 20600; 64455; J0702; J1100 ==

== ENCOUNTER 2024-09-04 16:39 | Emergency (ER) | payer MEDICARE, MEDICAID, SELFPAY ==
[2024-09-04 16:40] VITALS: BP 187/82; PULSE 78; RESP 15; TEMP 36.4; O2SAT 96
--- NOTE | 2024-09-04 17:00 | DI.RAD_ITS ---
Exam(s) XR LUMBAR SPINE COMPLETE EXAM: XR LUMBAR SPINE COMPLETE CLINICAL HISTORY: Right lower back pain. TECHNIQUE: 2D digital imaging was performed of the lumbar spine. Five images were obtained. AP, la teral, right oblique, left oblique and L5-S1 spot views were obtained. COMPARISON: CR XR LUMBAR SPINE COMP W FLEX/EX from 02/25/2022 CR XR RIBS RT W PA LAT CHEST from 10/25/2022 MR MR LUMBAR SPINE WO from 07/06/2023 CR XR RIBS LT W PA LAT CHEST from 10/06/2023 FINDINGS: BONES: No fracture or destructive lesion. Bones are osteopenic limiting evaluation. There again see n compression deformities of T10 through T12 which appears stable. The lumbar vertebral body heights are well maintained. Degenerative changes of the facets are seen at multiple levels in the lumbar s pine. DISKS: Disc space narrowing at L4-5 and L5-S1. ALIGNMENT: There is a left convex thoracolumbar scoliosis. There is stable anterolisthesis of L4 on L5. No spondylolysis or spondylolisthesis. SOFT TISSUE: Atherosclerotic calcification is present. IMPRESSION: 1. Diffuse osteopenia. 2. No acute fracture or subluxation in the lumbar spine. 3. Multilevel degenerative changes in the lumbar spine characterized by disc space narrowing and face t arthropathy. 4. Stable anterolisthesis of L4 on L5. DATA REPOSITORY: RADIATION DOSE DELIVERED:
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
[2024-09-04] MEDS: Lidocaine 5% Patch 1 PATCH TP (17:32)
[2024-09-04] MEDS: Methocarbamol 500 MG TAB PO (17:32)
[2024-09-04] MEDS: Acetaminophen 325 MG TAB 650 MG PO (17:32)
[2024-09-04 17:34] VITALS: BP 171/60; PULSE 59; RESP 18; O2SAT 96
[2024-09-04 17:36] VITALS: BP 171/60; PULSE 68
[2024-09-04] MEDS: oxyCODONE 5 MG TAB 2.5 MG PO (19:10)
[2024-09-04 19:19] VITALS: BP 190/92; PULSE 86; RESP 18; O2SAT 98
== END 2024-09-04 19:20 | disposition home or self-care (01) ==
PROVIDERS: Emergency Provider Registered Nurse Emergency; PCP Student in an Organized Health Care Education/Training Program
DX: S39.012A Strain of muscle, fascia and tendon of lower back, initial encounter (principal); I10 Essential (primary) hypertension; J44.9 Chronic obstructive pulmonary disease, unspecified; Z79.82 Long term (current) use of aspirin; Z87.891 Personal history of nicotine dependence; X50.0XXA Overexertion from strenuous movement or load, initial encounter; Y93.89 Activity, other specified; Y92.89 Other specified places as the place of occurrence of the external cause
CPT/HCPCS: 99283; 72110

== ENCOUNTER → 2024-10-24 13:28 | Outpatient (BNVA) | payer MEDICARE, MEDICAID, SELFPAY | PROVIDERS: PCP Nurse Practitioner; Referring Provider Nurse Practitioner; Visit Provider Podiatrist | DX: G57.61 Lesion of plantar nerve, right lower limb; G57.81 Other specified mononeuropathies of right lower limb; M67.02 Short Achilles tendon (acquired), left ankle | CPT/HCPCS: 64455 ==

== ENCOUNTER 2024-11-14 02:30 | Outpatient (CLI) | payer MEDICARE, MEDICAID, SELFPAY ==
--- NOTE | 2024-11-14 07:30 | DI.RAD_ITS ---
Exam(s) XR HIP RT COMPLETE AP PELVIS EXAM: XR HIP RT COMPLETE AP PELVIS CLINICAL HISTORY: RT HIP PAIN,[id number]. TECHNIQUE: 2D digital imaging was performed. Two views COMPARISON: MR MR PELVIS WO from 07/06/2023 CR XR LUMBAR SPINE COMPLETE from 09/04/2024 FINDINGS: BONES: No acute fracture is present. Old fracture deformity of the left inferior pubic ramus. No [place] destructive lesion is seen. The sacrum is mainly obscured by overlying stool and bowel gas. JOINTS: No dislocation present. The hip joint spaces are maintained. No significant periarticular spurring. There are degenerative changes of the inferior SI joints and pubic symphysis. SOFT TISSUE: Vascular calcifications. IMPRESSION: No acute abnormality. DATA REPOSITORY: RADIATION DOSE DELIVERED:
== END 2024-11-14 02:50 ==
LOC: DI 02:30
PROVIDERS: PCP Nurse Practitioner; Visit Provider Nurse Practitioner
DX: M25.551 Pain in right hip (principal)
CPT/HCPCS: 73502

== ENCOUNTER → 2025-01-02 13:01 | Outpatient (BNVA) | payer MEDICARE, MEDICAID, SELFPAY | PROVIDERS: PCP Nurse Practitioner Family; Referring Provider Nurse Practitioner; Visit Provider Student in an Organized Health Care Education/Training Program | DX: S39.012A Strain of muscle, fascia and tendon of lower back, initial encounter (principal); X58.XXXA Exposure to other specified factors, initial encounter; M70.61 Trochanteric bursitis, right hip; G57.61 Lesion of plantar nerve, right lower limb | CPT/HCPCS: 99213 ==

== ENCOUNTER 2025-02-12 03:23 | Outpatient (CLI) | payer MEDICARE, SELFPAY ==
[2025-02-12 11:44] LABS: Hemoglobin A1C 5.6 % (<5.7)
[2025-02-12 12:21] LABS: Calculated LDL 159 mg/dL (<100); Cholesterol 251 mg/dL (<200); HDL Cholesterol 79 mg/dL (>or=50); Triglyceride 69 mg/dL (<150)
== END 2025-02-12 03:24 | disposition home or self-care (01) ==
LOC: LBO 03:23
PROVIDERS: PCP Nurse Practitioner Family; Visit Provider Nurse Practitioner Family
DX: I63.9 Cerebral infarction, unspecified (principal); R73.03 Prediabetes
CPT/HCPCS: 36415; 80061; 83036

== ENCOUNTER 2025-03-14 11:21 | Outpatient (CLI) | payer MEDICARE, MEDICAID, SELFPAY ==
--- NOTE | 2025-03-14 11:42 | DI.CT_ITS ---
Exam(s) CT HEAD CERVICAL SPINE WO EXAM: CT HEAD CERVICAL SPINE WO CLINICAL HISTORY: Fall and blow to right forehead Oct 2024,concussion,[id number]. TECHNIQUE: Imaging Protocol: Axial computed tomography images with coronal and sagittal reformatted images were created and reviewed COMPARISON: CT HEAD AND CSPINE W/O CONTRAST from 09/27/2017 FINDINGS: BRAIN: There are no skull fractures nor fluid in the visualized paranasal sinuses. There is no evidence of intracranial hemorrhage, mass effect, or shift of midline structures. There are no extra-axial fluid collections. Size of the lateral ventricles and 3rd ventricle of slightly increased when compared to CT scan images of September 2017. This is subtle. There is no blood within the ventricular system nor within the basal cisterns. CERVICAL SPINE: There is no evidence of fracture nor significant listhesis. No significant prevertebral soft tissue swelling. Multilevel chronic disc space narrowing. There is multilevel moderate facet arthropathy. There is no significant facet joint malalignment. No significant osseous lesions evident. IMPRESSION: No evidence of skull fracture or intracranial hemorrhage, intra or extra-axial. Slightly prominent lateral ventricles which may be slightly increased from 2017. Correlation with any clinical signs of normal pressure hydrocephalus recommended. No evidence of cervical spine fracture, malalignment, nor acute compromise of the cervical spinal canal. RADIATION DOSE DELIVERED: 1,129.46mGy.cm Total DLP DATA REPOSITORY: All CT scans at this facility are submitted to the National Radiology Data Registry (NRDR) Dose Index Registry (DIR) with the [employer] (A[employer]). RADIATION OPTIMIZATION: All CT scans at this facility use at least one of these dose optimization techniques: automated exposure control; mA and/or kV adjustment per patient size (includes targeted exams where dose is matched to clinical indication); or iterative reconstruction.
== END 2025-03-14 11:41 ==
LOC: DI 11:22
PROVIDERS: PCP Nurse Practitioner Family; Visit Provider Family Medicine
DX: S06.0XAA Concussion with loss of consciousness status unknown, initial encounter (principal); X58.XXXA Exposure to other specified factors, initial encounter
CPT/HCPCS: 70450; 72125

== ENCOUNTER → 2025-03-17 11:40 | Outpatient (BNVA) | payer MEDICARE, MEDICAID, SELFPAY | PROVIDERS: PCP Nurse Practitioner Family; Referring Provider Nurse Practitioner Family; Visit Provider Podiatrist | DX: Z09 Encounter for follow-up examination after completed treatment for conditions other than malignant neoplasm (principal); G57.81 Other specified mononeuropathies of right lower limb; M67.02 Short Achilles tendon (acquired), left ankle; G57.61 Lesion of plantar nerve, right lower limb | CPT/HCPCS: 64455; J0702; J1100 ==

== ENCOUNTER 2025-04-07 14:02 | Outpatient (CLI) | payer MEDICARE, MEDICAID, SELFPAY ==
--- NOTE | 2025-04-07 13:45 | DI.RAD_ITS ---
Exam(s) XR HIP RT AP LAT ONLY EXAM: XR HIP RT AP LAT ONLY CLINICAL HISTORY: eval R hip pain. TECHNIQUE: 2D digital imaging was performed. Two views COMPARISON: CR XR DEXA BONE DENSITY W/WO ELLIOT from 04/06/2021 CR XR HIP RT COMPLETE AP PELVIS from 11/14/2024 FINDINGS: BONES: No acute fracture is present. No bony destructive lesion is seen. JOINTS: No dislocation present. The hip joint spaces maintained. The SI joints and pubic symphysis show mild spurring. SOFT TISSUE: Vascular calcifications. IMPRESSION: No acute abnormality. DATA REPOSITORY: RADIATION DOSE DELIVERED:
== END 2025-04-07 14:03 | disposition home or self-care (01) ==
LOC: DIORS 14:02
PROVIDERS: PCP Nurse Practitioner Family; Referring Provider Nurse Practitioner Family; Visit Provider Student in an Organized Health Care Education/Training Program
DX: M25.551 Pain in right hip (principal); M70.61 Trochanteric bursitis, right hip; M48.061 Spinal stenosis, lumbar region without neurogenic claudication; M47.816 Spondylosis without myelopathy or radiculopathy, lumbar region; G57.61 Lesion of plantar nerve, right lower limb; I10 Essential (primary) hypertension
CPT/HCPCS: 99214; 20611; J1010; 73502

== ENCOUNTER 2025-05-05 01:17 | Outpatient (CLI) | payer MEDICARE, MEDICAID, SELFPAY ==
--- NOTE | 2025-05-05 07:30 | DI.MRI_ITS ---
Exam(s) MR LUMBAR SPINE WO EXAM: MR LUMBAR SPINE WO CLINICAL HISTORY: back pain, spinal stenosis, spondylosis, m47.9,m48.061. TECHNIQUE: Multiplanar multisequence MRI of the Lumbar spine was performed. COMPARISON: MR MR LUMBAR SPINE WO from 07/06/2023 CR XR LUMBAR SPINE COMPLETE from 09/04/2024 FINDINGS: Bones: The last intervertebral disc space is designated the L5/S1 level for the numbering purpose of this examination. The vertebral body heights are well maintained. There is a left convex thoracolumbar scoliosis. There is grade 1 anterolisthesis of L4 on L5. There are degenerative endplate signal changes present particularly at L4-5 and L5-S1. There is again seen anterior wedging of T10, T11 and T12. Cord: It is of normal size and signal intensity. T12-L1: No disc herniations or bulges are present. There is no significant central spinal canal stenosis. There is mild bilateral neural foraminal stenosis. L1-2: No disc herniations or bulges are present. No significant central spinal canal stenosis. There is mild bilateral neural foraminal stenosis. L2-3: There is a diffuse disc bulge. There are degenerative changes of the facets. No significant central spinal canal stenosis is present. There is mild bilateral neural foraminal stenosis. L3-4: There is a mild diffuse disc bulge there are degenerative changes of the facets. No significant central spinal canal stenosis is seen. There is mild to moderate bilateral neural foraminal stenosis, left greater than right. L4-5: There is anterolisthesis of L4 on L5 again seen. There are degenerative changes of the facets with hypertrophy of the ligamentum flavum. These all contribute to cause moderately severe central spinal canal stenosis. There is mild bilateral neural foraminal stenosis. L5-S1: No disc herniations or bulges are present. There are degenerative changes of the facets. There is no significant central spinal canal stenosis.Mild narrowing of the neural foramen is seen on the left. No significant right neural foraminal stenosis. Soft tissues: The visualized SI joints and sacrum are well maintained. There is mild fatty atrophy of the paraspinal muscles. IMPRESSION: 1. Left convex thoracolumbar scoliosis. 2. Grade 1 anterolisthesis of L4 on L5 is again seen. 3. Multilevel degenerative changes throughout the lumbar spine resulting in central spinal canal and neural foraminal stenosis. The findings are most marked at the L4-L5 level. DATA REPOSITORY:
== END 2025-05-05 01:37 ==
PROVIDERS: PCP Nurse Practitioner Family; Visit Provider Student in an Organized Health Care Education/Training Program
DX: M48.05 Spinal stenosis, thoracolumbar region (principal)
CPT/HCPCS: 72148

== ENCOUNTER 2025-05-21 09:43 | Outpatient (CLI) | payer MEDICARE, SELFPAY ==
[2025-05-21 10:36] LABS: NT-proBNP 744 pg/mL (<300)
== END 2025-05-21 09:44 | disposition home or self-care (01) ==
LOC: LBO 09:44
PROVIDERS: PCP Nurse Practitioner Family; Visit Provider Family Medicine
DX: R06.00 Dyspnea, unspecified (principal); R60.0 Localized edema
CPT/HCPCS: 36415; 83880

== ENCOUNTER 2025-06-10 11:07 | Outpatient (CLI) | payer MEDICARE, MEDICAID, SELFPAY ==
--- NOTE | 2025-06-10 13:30 | DI.US_ITS ---
APPROVED REPORT EXAM: Comprehensive 2D, Doppler, and color-flow Echocardiogram Patient Location: Out-Patient Diver Assistant: Ethan Matson RDCS (AE) Indications: Pedal edema, SOB Other Information Study Quality: Adequate Conclusion Mild concentric left ventricular hypertrophy. Ejection fraction is 60 to 65%. Wall motion is normal Normal right ventricular size and function Normal right atrial size. Moderately enlarged left atrium Trileaflet aortic valve without stenosis or regurgitation Mild mitral annular calcification. Mild mitral regurgitation Mild tricuspid regurgitation. Estimated right ventricular systolic pressure is 21 mmHg Wall motion Left Ventricle The left ventricle is normal size. The left ventricular systolic function is normal. The left ventricular ejection fraction is within the normal range. Mild concentric left ventricular hypertrophy. There is normal LV segmental wall motion. There is no ventricular septal defect visualized. LVEF is 60-65%. Right Ventricle The right ventricle is normal size. The right ventricular systolic function is normal. Atria Left atrium is moderately dilated. The right atrium size is normal. The interatrial septum is intact with no evidence for an atrial septal defect. Aortic Valve The aortic valve is normal in structure. Aortic valve is trileaflet. There is no aortic valvular stenosis. No aortic regurgitation is present. Mitral Valve Mild mitral annular calcification. No evidence of mitral valve stenosis. Mild mitral regurgitation. Tricuspid Valve The tricuspid valve is normal in structure. There is no tricuspid valve stenosis. Mild tricuspid regurgitation. The RVSP is 20.8 mmHg. Pulmonic Valve The pulmonary valve is normal in structure. There is no pulmonic valvular stenosis. Trace pulmonic regurgitation. Great Vessels The aortic root is normal in size. The ascending aorta is normal in size. Aortic arch is normal in caliber. IVC is normal in size and collapses >50% with inspiration. Pericardium There is no pericardial effusion. 2D Dimensions IVSD d PLAX 1.10 cm F: 0.6-1.0 Ao Root d 2.27 cm F: 2.7 - 3.3 LVPW d PLAX 1.23 cm F: 0.6 - 1.0 Ao Asc Diam d 2.78 cm F: 2.3 - 3.1 LVID d PLAX 3.61 cm F: 3.8 - 5.2 LVDs 2.48 cm F: 2.2 - 3.5 LV EF Teichholz 60.2 % FS 31.39 % LV EDV (Teich) 54.9 mL LV ESV (Teich) 21.8 mL Stroke Vol Index (Teich) 20.39 M-Mode TAPSE 1.62 cm (M/F) >1.7 LV Volumes - Method of Disks (Davies's) Single Plane 2D LV Volumes Biplane 2D LV Volumes LV EDV A4C 70.9 mL LV EDV BP 49.07 mL F: 46 - 106 LV ESV A4C 27.0 mL LV ESV BP 17.6 mL LVEF(%) A4C 61.9 % LVEF(%) BP 64.19 % F: 54 - 74 LV EDV A2C 28.7 mL LV EDV BP Index 30.29 mL/m2 F: 29 - 61 LV ESV A2C 10.0 mL SV BP LVEF(%) A2C 65.4 % SV Index LA Volume LA Length A4C 5.6 cm LA Length A2C 6.2 cm LA Area A4C s 20.90 cm2 LA Area A2C s 20.75 cm2 LA Vol A4C A-L 65.95 mL LA Vol A2C A-L 58.98 mL LA Vol Biplane A-L 65.5 mL LA Vol/BSA A4C A-L LA Vol/BSA A2C A-L LA Vol/BSA BP A-L 40.4 mL/m2 LA Vol A4C MOD 63.5 mL LA Vol A2C MOD 55.2 mL LA Vol BP MOD 60.6 mL RA Volume RA Area A4C 6.0 cm2 RA ESV A4C (A-L) 7.7mL RA Vol/BSA A4C A-L RA Length A4C 4.0 cm RA ESV A4C (MOD) 7.4mL LV Diastology MV E' medial 0.051 (>0.07 m/s) MV E Vmax 0.65 (0.4-1.3 m/s) MV E/E' MED 12.80 (<14) MV A Vmax 1.10 (0.4-1.3 m/s) MV E' lateral 0.055 (>0.1 m/s) E/A Ratio 0.6 MV E/E' LAT 11.84 (<14) MV E' Average 0.053 m/s MV E/E'(average) 12.30 Aortic Valve AoV Vmax 1.37 m/s LVOT Vmax 1.28 m/s AoV Peak Grad 7.5 mmHg LVOT Peak Grad 6.5 mmHg AoV Area (Vmax) 2.83 cm2 LVOT VTI 0.286 m AoV VTI 0.319 m LVOT Mean Grad 2.9 mmHg AoV Mean Julien. 0.98 m/s LVOT SV 87.01 mL AoV Mean Grad 4.3 mmHg LVOT Diam s 1.95 cm AoV Area (VTI) 2.72 cm2 AV Regurg Peak Gr. 7.50 mmHg Velocity Ratio 0.93 Mitral Valve MV DT 257 (160-240 msec) Pulmonary Valve PV Vmax 0.87 (0.5-1.5 m/s) RVOT Vmax 0.54 m/s PV Peak Grad 3.0 mmHg RVOT Peak Gr. 1.1 mmHg PV Mean Julien 0.58 m/s RVOT VTI 0.116 m PV Mean Grad 1.5 mmHg RVOT Mean Gr. 0.6 mmHg Tricuspid Valve RA Pressure 3.00 mmHg TR Vmax 2.11 m/s TR Peak Grad 17.8 mmHg RVSP (TR) 20.8 mmHg
== END 2025-06-10 11:27 ==
PROVIDERS: PCP Nurse Practitioner Family; Visit Provider Internal Medicine Cardiovascular Disease
DX: R06.02 Shortness of breath (principal)
CPT/HCPCS: 93306

== ENCOUNTER 2025-06-19 07:57 | Outpatient (CLI) | payer MEDICARE, MEDICAID, SELFPAY ==
--- NOTE | 2025-06-19 07:45 | RT.EKG_ITS ---
APPROVED REPORT Exam: Resting ECG Reason for Exam: SOB Patient Location: O HR:73 bpm ECG Measurements Heart Rate 73 AXIS NM 145 P 16 QRSd 80 QRS -30 QT 403 T 23 QTc 444 Conclusion Sinus rhythm...normal P axis, V-rate 50- 99 Abnormal R-wave progression, early transition...QRS area>0 in V2
== END 2025-06-19 07:58 | disposition home or self-care (01) ==
LOC: DI.CARD 07:57
PROVIDERS: PCP Nurse Practitioner Family; Visit Provider Internal Medicine Cardiovascular Disease
DX: R06.02 Shortness of breath (principal)
CPT/HCPCS: 93010

== ENCOUNTER → 2025-06-19 11:15 | Outpatient (BNVA) | payer MEDICARE, MEDICAID, SELFPAY | PROVIDERS: PCP Nurse Practitioner Family; Referring Provider Nurse Practitioner Family; Visit Provider Internal Medicine Cardiovascular Disease | DX: R06.02 Shortness of breath (principal); R06.09 Other forms of dyspnea | CPT/HCPCS: 99214; 93005 ==

== ENCOUNTER 2025-08-07 11:37 | Outpatient (CLI) | payer MEDICARE, MEDICAID, SELFPAY ==
[2025-08-07 11:48] VITALS: BP 176/79; PULSE 73; RESP 20; TEMP 37; O2SAT 96
[2025-08-07] MEDS: Nerve Block Tray 1 EACH MC (12:17)
--- NOTE | 2025-08-07 12:31 | PDOC.PAIN ---
Date of service: 08/07/25 Time of Service: 12:32 Pain Managment Procedure Note Procedure Note Procedure Note: PROCEDURE NOTE RIGHT INTRA-ARTICULAR SACROILIAC JOINT INJECTION Date of Service: August 07, 2025 Patient: Agata Miles V Provider: Ari Pérez DO, MPH COMMENTS: I previously evaluated the patient in the office and their symptoms in relation to the sacroiliac joint pain have remained the same. Pre-operative diagnosis: Sacroiliac joint dysfunction ICD-10 M53.3 Post-operative diagnosis: Same Pre-procedure pain: VAS= 5/10 Agata Miles has been referred to our [facility] for a Right intra-articular Sacroiliac joint injection. Agata was interviewed and the medical record reviewed. There were no medical, pharmacologic, radiographic or other structural contraindications to attempting a fluoroscopically-guided, contrast-enhanced, intra-articular Sacroiliac joint injection. The risks, benefits, and potential side effects of this procedure were reviewed with the patient. Questions and concerns were addressed. After it was clear that Agata was fully informed about the procedure, the printed consent form was signed by the patient and myself. Agata was placed in the prone position on the fluoroscopy table and an automated blood pressure cuff, 3 lead EKG, and pulse oximeter were applied. The skin entry point for approaching the Right sacroiliac joint was identified under the most advantageous fluoroscopic view and marked. Following thorough Chlorhexadine preparation of the skin and draping with sterile surgical drapes, 2 mls of 1% lidocaine was infiltrated into the skin at the entry point and the surrounding subcutaneous tissues. Next, a 3.5 22G spinal needle was placed under fluoroscopic guidance into the Right sacroiliac joint. Intra-articular placement was confirmed by a clear arthrogram resulting from the injection of 0.25ml of Omnipaque-240. Next, 2 ml of Depo- Medrol 40 mg/ml was injected intra-articularly with an initial reproduction of a significant component of the usual pain. This was followed with 1 ml of 1% Lidocaine. The needle was then removed without difficulty. (49 ml of Omnipaque-240 was wasted). Agata's vital signs were stable throughout the procedure and were as recorded in nursing records. Follow up plans and appointments were discussed with Agata. Post procedure instructions were given as documented in nursing records. Having met discharge criteria, Agata was [facility] from the [facility]. COMMENTS: Post-procedure pain: VAS= 4/10. If the patient receives at least 50% improvement in pain and/or function for at least 3 months, this procedure can be repeated if needed. I personally performed this entire procedure. ARI PÉREZ DO, MPH ABPMR-subspecialty board certification in Pain Medicine [facility] Coding Conscious Sedation used for procedure: No CPT Codes: SI Joint Inj; incl Fluoro - 69752 ([id number] ~G) Additional Codes: Date of Service (51418) Diagnoses: sacroiliac joint dysfunction
--- NOTE | 2025-08-07 12:34 | DI.RAD_ITS ---
Exam(s) XR PAIN CLINIC SACRIOILIAC 2V EXAM: XR PAIN CLINIC SACRIOILIAC 2V CLINICAL HISTORY: DX: Sacroiliac Dysfunction TECHNIQUE: 2D and realtime digital imaging was performed. CONTRAST MATERIAL: Refer to procedure report. COMPARISON: No exams were available for comparison FINDINGS: Fluoroscopy was provided for Dr. Pérez during the performance of a sacroiliac joint injection. Please refer to the procedure report for complete details. Ka,r=1.71 mGy IMPRESSION: RADIATION DOSE DELIVERED: 0.0 0.0 0
[2025-08-07 12:46] VITALS: BP 182/83; PULSE 73; RESP 23; O2SAT 98
[2025-08-07] MEDS: Omnipaque 240 MG/ML 50 ML BTL IJ (12:46)
[2025-08-07] MEDS: methylPREDNISolone ACETATE 40 MG/ML VIAL IJ (12:47)
== END 2025-08-07 11:38 | disposition home or self-care (01) ==
LOC: PC 11:37
PROVIDERS: PCP Nurse Practitioner Family; Visit Provider Preventive Medicine Occupational Medicine
DX: M54.50 Low back pain, unspecified (principal); M53.3 Sacrococcygeal disorders, not elsewhere classified
CPT/HCPCS: 27096; 72200; J1010; Q9967

== ENCOUNTER 2025-09-09 14:28 | Outpatient (CLI) | payer MEDICARE, MEDICAID, SELFPAY ==
[2025-09-09 14:44] LABS: Abs Immature Grans 0.02 10^3/uL (0.0-0.06); HCT 37.2 % (36.0-46.0); HGB 11.8 g/dL (11.2-15.7); Immature Grans % 0.4 %; MCH 29.4 pg (27.0-33.0); MCHC 31.7 % (32.0-36.0); MCV 93 fL (80-95); MPV 8.9 fL (8.0-11.0); Platelet Count 276 10^3/uL (130-400); RBC 4.01 10^6/uL (3.93-5.22); RDW 13.0 % (11.7-14.6); RDW-SD 44.6 fL; WBC 5.26 10^3/uL (4.4-10.8)
[2025-09-09 15:09] LABS: Lipase 19 U/L (<53)
[2025-09-09 15:10] LABS: Amylase 45 U/L (30-118)
[2025-09-09 15:13] LABS: ALT 11 U/L (10-49); AST 18 U/L (<34); Albumin 4.4 g/dL (3.2-5.0); Alkaline Phosphatase 90 U/L (46-116); Anion Gap 8.6 mmol/L (3-11); BUN 16 mg/dL (9-23); Bilirubin, Total 0.4 mg/dL (0.2-1.2); CO2 27.4 mmol/L (20.0-31.0); Calcium 9.5 mg/dL (8.3-10.6); Chloride 105 mmol/L (98-107); Glucose 86 mg/dL (74-106); Potassium 3.7 mmol/L (3.5-5.1); Sodium 141 mmol/L (136-145); Total Protein 7.3 g/dL (5.7-8.2)
== END 2025-09-09 14:29 | disposition home or self-care (01) ==
LOC: LBO 14:29
PROVIDERS: PCP Nurse Practitioner Family; Visit Provider Family Medicine
DX: R10.30 Lower abdominal pain, unspecified (principal); I50.9 Heart failure, unspecified
CPT/HCPCS: 36415; 80053; 83690; 82150; 83880; 85025

== ENCOUNTER → 2025-09-11 01:03 | Outpatient (CLI) | payer MEDICARE, MEDICAID, SELFPAY ==
--- NOTE | 2025-09-11 07:45 | DI.CT_ITS ---
Exam(s) CT ABDOMEN PELVIS W EXAM: CT ABDOMEN PELVIS W CLINICAL HISTORY: low abd pain, r10.30. TECHNIQUE: Imaging Protocol: Axial computed tomography images with coronal and sagittal reformatted images were created and reviewed CONTRAST MATERIAL: Intravenous: Omnipaque 350 Contrast volume:75 ml Oral: yes MR MR LUMBAR SPINE WO from 05/05/2025 FINDINGS: ABDOMEN and PELVIS: Lung Bases: No acute findings. The heart is mildly enlarged. Coronary artery calcifications are present. There is a small hiatal hernia. There is some suture material at the GE junction related to prior surgery. Liver: Normal density. No suspicious mass. Gallbladder and biliary tract: No radiodense calculus. No wall thickening or pericholecystic fluid. No biliary dilation. Pancreas: Moderately atrophic. No abnormal calcifications or inflammatory process. No evidence of mass. Spleen: Normal. Kidneys: Normal size, contour and axis. Duplex collecting systems. No radiodense stones. No obstructive uropathy. No suspicious masses seen. Adrenal glands: No masses seen. Vasculature: Abdominal aorta non-dilated. Soft tissues: Unremarkable. Bladder: Nearly empty. No gross wall thickening. No calculi.No focal mass. Bowel: No obstruction. No bowel wall thickening. Prominent diverticulosis of the sigmoid colon with severe muscular hypertrophy. No surrounding inflammation to suggest diverticulitis. Normal quantity of stool. Appendix is not visualized Peritoneal cavity: No ascites. No focal collection. No mesenteric inflammatory response. No free air. Bones: There are stable mild compression fractures of T10, T11 and T12. Scoliosis and degenerative changes. There are prominent facet degenerative changes causing mild spondylolisthesis at L4-5 and L5-S1, unchanged. Reproductive organs: There are 2 simple cysts on the right ovary, measuring 1.7 and 2.3 cm. There is a simple left ovarian cyst measuring 2 cm. The cysts have increased in size mildly from the prior exam 7 years ago. Lymph nodes: No pathologically enlarged lymph nodes. IMPRESSION:: Prominent diverticulosis of the sigmoid region without evidence of superimposed diverticulitis. RADIATION DOSE DELIVERED: 346.81mGy.cm Total DLP DATA REPOSITORY: All CT scans at this facility are submitted to the National Radiology Data Registry (NRDR) Dose Index Registry (DIR) with the [employer] (A[employer]). RADIATION OPTIMIZATION: All CT scans at this facility use at least one of these dose optimization techniques: automated exposure control; mA and/or kV adjustment per patient size (includes targeted exams where dose is matched to clinical indication); or iterative reconstruction.
[2025-09-11] MEDS: Barium Sulfate 2% W/V-Berry Smoothie 450 ML BTL PO (12:35)
[2025-09-11] MEDS: Barium Sulfate 2% W/V-Creamy Vanilla Smoothie 450 ML BTL PO (12:35)
[2025-09-11] MEDS: Normal Saline - Diluent 50 ML VIAL IJ (14:41)
[2025-09-11] MEDS: Normal Saline Flush 10 ML SYR IVP (14:42)
[2025-09-11] MEDS: Omnipaque 350 MG/ML 100 ML BTL IJ (14:43)
== END ==
LOC: DI 01:04
PROVIDERS: PCP Nurse Practitioner Family; Visit Provider Nurse Practitioner Family
DX: K57.30 Diverticulosis of large intestine without perforation or abscess without bleeding (principal)
CPT/HCPCS: 74177; J3490

== ENCOUNTER → 2025-09-22 09:43 | Outpatient (BNVA) | payer MEDICARE, MEDICAID, SELFPAY | PROVIDERS: PCP Nurse Practitioner Family; Referring Provider Nurse Practitioner Family; Visit Provider Surgery | DX: R10.30 Lower abdominal pain, unspecified (principal) | CPT/HCPCS: 99214 ==

== ENCOUNTER → 2025-10-01 13:16 | Outpatient (CLI) | payer MEDICARE, MEDICAID, SELFPAY ==
--- NOTE | 2025-10-01 07:30 | DI.US_ITS ---
Exam(s) US HERNIA EXAM: US HERNIA CLINICAL HISTORY: Rule out right inguinal and femoral hernias, LOWER ABD PAIN R10.30. TECHNIQUE: Ultrasound was performed using standard protocol. COMPARISON: CT CT ABDOMEN PELVIS W from 09/11/2025 FINDINGS: Sonographic assessment utilizing grayscale and color Doppler imaging was performed and targeted to the area of clinical concern in the right lower quadrant and right groin region. There is no evidence of a hernia. The patient had a previous right inguinal hernia repair. Nothing is visible in this location. In the area of the patient's pain, there is an area of shadowing which appears to be at the superficial aspect of the muscle and not within the subcutaneous fat. There is no evidence of a hernia in this location. There are normal appearing groin lymph nodes. IMPRESSION: There is a small area of shadowing in the area of the patient's pain in the right lower quadrant. There is no abnormality visible on recent CT. There is no evidence of a hernia on either today's examination or prior CT. DATA REPOSITORY:
== END ==
LOC: DI 13:16
PROVIDERS: PCP Nurse Practitioner Family; Visit Provider Surgery
DX: R10.30 Lower abdominal pain, unspecified (principal)
CPT/HCPCS: 76857